=== PATIENT | male | born 1945 | race African-American/Black ===

== ENCOUNTER 2017-04-09 20:29 | Inpatient (IN) | payer OTHER ==
[2017-04-09 20:34] VITALS: BMI 21.9
--- NOTE | 2017-04-09 21:55 | PDOC ---
Attending Attestation - Resident Resident Name: FrancieKailash - ED Attending Attestation I have performed the following: I have examined & evaluated the patient, The case was reviewed & discussed with the resident, I agree w/resident's findings & plan, Exceptions are as noted - HPI HPI: 04/10/17 00:35 The patient is a 71 year old male with significant past medical history of HIV, hypertension, and diabetes who presents to the ED for 2 weeks of generalized weakness and poor balance. Patient states he is compliant with his treatments for all of his past medical h/o, but has not been seen by a doctor in a year. Patient is from [place] and his son, who lives in [place], decided to bring him here to make sure patient gets proper care. Patient reports decreased appetite for the past 2 months. Denies abdominal pain, nausea, vomiting, or diarrhea. He also has complaints of weight loss, night sweats, and difficulty sleeping. The patient denies fever, chills, cough, SOB, chest pain, and palpitations. - Physicial Exam PE: 04/10/17 00:35 GENERAL: Well developed, well nourished. Awake and alert. No acute distress. HEENT: Normocephalic, atraumatic. PERRLA, EOMI. No conjunctival pallor. Sclera are non- icteric. Moist mucous membranes. Oropharynx is clear. NECK: Supple. Full ROM. No JVD. Carotid pulses 2+ and symmetric, without bruits. No thyromegaly. No lymphadenopathy. CARDIOVASCULAR: Regular rate and rhythm. No murmurs, rubs, or gallops. Distal pulses are 2+ and symmetric. PULMONARY: No evidence of respiratory distress. Lungs clear to auscultation bilaterally. No wheezing, rales or rhonchi. ABDOMINAL: Soft. Non-tender. Non-distended. No rebound or guarding. No organomegaly. Normoactive bowel sounds. MUSCULOSKELETAL Normal range of motion at all joints. No bony deformities or tenderness. No CVA tenderness. EXTREMITIES: No cyanosis. No clubbing. No edema. No calf tenderness. SKIN: Warm and dry. Normal capillary refill. No rashes. No jaundice. NEUROLOGICAL: Alert, awake, appropriate. Cranial nerves 2-12 intact. Moving all extremities equally. No gross neurological deficits. Gait ataxia. <Miesha Belcher - Last Filed: 04/10/17 00:35> - Resident Resident Name: Kailash Marmolejo - ED Attending Attestation I have performed the following: I have examined & evaluated the patient, The case was reviewed & discussed with the resident, I agree w/resident's findings & plan, Exceptions are as noted - Medical Decision Making 04/10/17 02:27 ADMIT/ IV FLUIDS/ CALCIUM/D50/Insulin/Bicarb/ TELE Renal and ID Consults <Castillo Whelan - Last Filed: 04/10/17 02:30> Discharge Disposition - Discharge Dispostion Admit: Yes <Castillo Whelan - Last Filed: 04/10/17 02:30> - Diagnosis Renal insufficiency, Human immunodeficiency virus (HIV) disease, Weakness Dementia Qualifiers: Dementia type: unspecified type Dementia behavioral disturbance: without behavioral disturbance Qualified Code(s): F03.90 - Unspecified dementia without behavioral disturbance - Discharge Dispostion Condition at time of disposition: Improved ED Treatment Course - LABORATORY CBC & Chemistry Diagram: 04/09/17 23:35 04/09/17 23:35 - ADDITIONAL ORDERS Additional order review: 04/09/17 23:35 RBC 3.46 L MCV 87.4 MCHC 32.9 RDW 15.8 MPV 8.1 Neutrophils % 52.3 Lymphocytes % 34.3 Monocytes % 10.3 H Eosinophils % 2.7 Basophils % 0.4 - RADIOLOGY Radiograph Interpretation: 04/10/17 00:28 EXAM: CT brain without contrast Reviewed by Imaging distribution estimator: FINDINGS: Involutional changes. No hemorrhage. No mass. No visible acute infarct. Osseous structures are intact. <Miesha Belcher - Last Filed: 04/10/17 00:35> - LABORATORY CBC & Chemistry Diagram: 04/09/17 23:35 04/09/17 23:35 <Castillo Whelan - Last Filed: 04/10/17 02:30> Medical Decision Making - Medical Decision Making 04/10/17 00:36 Documentation prepared by Miesha Belcher, acting as medical investigator for Castillo Whelan MD/. <Miesha Belcher - Last Filed: 04/10/17 00:35>
--- NOTE | 2017-04-09 23:31 | PDOC ---
History of Present Illness - General Chief Complaint: Weakness Stated Complaint: Weakness Time Seen by Provider: 04/09/17 21:54 History Source: Patient, Family - History of Present Illness Initial Comments: 04/09/17 23:20 69M w/ pmh of HCL, HTN, HIV, Diabetes, all of those for which he takes treatment but hasn't seen doctor in a year, presents with 2 weeks of b/l gneral weakness and poor balance as well as decreased appetite for the past 2 months. Patient also complains of weight loss, night sweats and difficulty sleeping. His sons visited him in [place] and decided to bring him to [place] to make erlin he gets proper care, especially with the pt showing early signs of Alzheimer 's. No hemoptysis, rashes,or vomiting, diarrhea or recent infections 04/09/17 23:40 Past History - Past Medical History Allergies/Adverse Reactions: Allergies Allergy/AdvReac Type Severity Reaction Status Date / Time No Known Allergies Allergy Verified 04/09/17 20:34 Home Medications: Ambulatory Orders Abacavir Sulfate [Abacavir] 300 mg PO DAILY 04/09/17 Amlodipine Besylate [Norvasc -] 50 mg PO DAILY 04/09/17 Aspirin [ASA -] 81 mg PO DAILY 04/09/17 Atazanavir Sulfate/Cobicistat [Evotaz 300 mg-150 mg Tablet] 1 tab PO DAILY 04/09 Atorvastatin Ca [Lipitor] 40 mg PO HS 04/09/17 Carvedilol 12.5 mg PO DAILY 04/09/17 Fosinopril Sodium 40 mg PO DAILY 04/09/17 Lamivudine 150 mg PO DAILY 04/09/17 Diabetes: Yes HTN: Yes HIV: Yes - Psycho/Social/Smoking Cessation Hx Suicidal Ideation: No Smoking History: Never smoked Review of Systems - Review of Systems Constitutional: Yes: See HPI, Night Sweats, Unintentional Wgt. Loss. No: Diaphoresis, Fever HEENTM: No: Eye Pain, Recent change in vision, Ear Pain, Mouth Pain, Difficulty Swallowing Respiratory: No: Cough, Shortness of Breath, Stridor, Wheezing, Productive cough , Hemoptysis Cardiac (ROS): No: Chest Pain, Edema, Irregular Heart Rate, Palpitations, Syncope ABD/GI: No: Abdominal Distended, Abd. Pain w/ defecation, Constipated, Diarrhea , Vomiting, Abdominal cramping Integumentary: No: Bruising, Change in Color, Change in Hair/Nails, Dryness Neurological: Yes: See HPI, Weakness. No: Headache Psychiatric: No: Anxiety, Depression *Physical Exam - Vital Signs Last Vital Signs Temp Pulse Resp BP Pulse Ox 97.9 F 57 L 18 98/56 100 04/09/17 20:31 04/09/17 20:31 04/09/17 20:31 04/09/17 20:31 04/09/17 20:31 - Physical Exam General Appearance: Yes: Nourished, Appropriately Dressed. No: Apparent Distress HEENT: positive: Normal ENT Inspection. negative: Photophobia Neck: positive: Supple. negative: Tender, Decreased range of motion Respiratory/Chest: positive: Lungs Clear, Normal Breath Sounds. negative: Respiratory Distress Cardiovascular: positive: Regular Rhythm, Regular Rate, S1, S2 Vascular Pulses: Carotid (R): 2+, Carotid (L): 2+, Dorsalis-Pedis (R): 2+, Doralis-Pedis (L): 2+ Gastrointestinal/Abdominal: positive: Normal Bowel Sounds, Flat, Soft. negative : Tender, Organomegaly, Increased Bowel Sounds, Tenderness, Hernia, Mass, Hepatomegaly, Spleenomegaly Extremity: positive: Normal Capillary Refill, Normal Inspection, Normal Range of Motion Integumentary: positive: Normal Color, Dry, Warm. negative: Clammy, Diaphoresis , Petechiae, Rash, Bruising Neurologic: positive: dialysis nurse II-XII NML intact, Fully Oriented, Alert, Normal Mood/ Affect, Motor Strength 5/5. negative: Numbness, Confused, Disoriented (+ Rhomberg and occasional left leaning side-stepping gait.) Medical Decision Making - Medical Decision Making 04/09/17 23:47 71M with pmh of HTN, HCL, HIV and DM2 presents with decreased appetite, weakness and decreased balance, weight loss and night sweats. . Ordered CBC, CMP, HIV panel, EKG, bChest Xray and head ct to assess potential level of compliance since he hasnt seen a doctor in a year. Chest Xray is clear, EKG bradycardia from 1st degree block. 04/09/17 23:53
[2017-04-10 00:13] LABS: BASOPHIL 0.4 % (0-2.0); EOSINOPHIL 2.7 % (0-4.5); MCH 28.7 pg (25.7-33.7); MCHC 32.9 g/dl (32.0-35.9); MEAN CELL VOLUME 87.4 fl (80-96); MEAN PLT VOLUME 8.1 fl (7.5-11.1); NEUTROPHILS 52.3 % (42.8-82.8); PLATELET COUNT 208 K/MM3 (134-434); RDW 15.8 % (11.9-15.9); WHITE BLOOD COUNT 3.5 K/mm3 (4.0-10.0)
[2017-04-10 00:29] LABS: INR 1.1 (0.82-1.09); PROTHROMBIN TIME (PATIENT) 12.1 SEC (9.98-11.88)
[2017-04-10 00:45] LABS: ALBUMIN 3.2 g/dl (3.4-5.0); ANION GAP 11 (8-16); CO2 15 mmol/L (21-32); GLUCOSE,RANDOM 102 mg/dL (74-106); SGOT/AST 18 U/L (15-37); SGPT/ALT 13 U/L (12-78)
[2017-04-10 00:49] LABS: ALK PHOS 137 U/L (45-117); BILIRUBIN,TOTAL 4.3 mg/dL (0.2-1.0); TOT PROT 6.9 g/dl (6.4-8.2); TROPONIN I < 0.02 ng/ml (0.00-0.05)
[2017-04-10 01:15] LABS: HIV 1 AGp24 NEGATIVE
[2017-04-10] MEDS ORDERED: SODIUM CHLORIDE 1,000 ML IV STA (01:55)
[2017-04-10] MEDS ORDERED: CALCIUM GLUCONATE 10% - 1,000 MG/10 ML VIAL IVPB ONE (01:56)
[2017-04-10] MEDS ORDERED: INSULIN REGULAR HUMAN 100 UNITS/ML *VIAL IVPUSH ONE (01:56)
[2017-04-10] MEDS ORDERED: SODIUM BICARBONATE 8.4% 50 MEQ/50 ML DISP.SYRIN IVPUSH ONE (01:56)
[2017-04-10] MEDS ORDERED: DEXTROSE 50%-WATER - 25 GM/50 ML VIAL IVPUSH ONE (01:56)
[2017-04-10] MEDS ORDERED: DEXTROSE 50%-WATER 50 ML DISP.SYRIN ONE (02:08)
[2017-04-10] MEDS ORDERED: SODIUM BICARBONATE 8.4% 50 MEQ/50 ML VIAL ONE (02:08)
[2017-04-10] MEDS ORDERED: CALCIUM GLUCONATE 10% - 1,000 MG/10 ML VIAL ONE (02:08)
[2017-04-10 02:43] LABS: HIV 1 & 2 AB PRELIMINARY POSITIVE
[2017-04-10 03:04] LABS: CALCIUM 9.3 mg/dL (8.5-10.1); PHOSPHOROUS 3.1 mg/dL (2.5-4.9)
[2017-04-10 04:07] LABS: ANION GAP 10 (8-16); CALCIUM 9.3 mg/dL (8.5-10.1); CO2 16 mmol/L (21-32); CREATININE 2.9 mg/dL (0.7-1.3); GLUCOSE,RANDOM 115 mg/dL (74-106)
--- NOTE | 2017-04-10 04:50 | HP ---
CHIEF COMPLAINT: Generalized Weakness, Unsteady Gait PCP: Not on staff HISTORY OF PRESENT ILLNESS: This is a 71 y/o male with a past medical history of Hypertension, HIV (HAART Compliant), DM, Dementia. Who presents to the ED with generalized weakness, unsteady gait x 2 weeks. Patient also reports having a decreased appetite for months. He states" the food tastes like garbage and I spit it out". The patient is originally from [place] and is living with his son, who brought him in for evaluation. Patient reports taking his medications which he gets in mail order, but has not seen a doctor in close to a year. Patient denies fever, chills, cough, SOB, dizziness, CP, AP, N/V/D, constipation, dysuria. He denies any dysphagia or dental pain ER course was notable for: (1) K 5.2~ 4.5 after given calcium gluconate, D50, Insulin (2)CT head report- small focal right frontal white matter infarct, probably old. Tiny old left caudate infarct (3) TYRESE- Bun 44, Cr 3.0 Recent Travel: None PAST MEDICAL HISTORY: HTN HIV DM Dementia PAST SURGICAL HISTORY: L- Shoulder Repair Social History: Smoking: Never Alcohol: Denies Drugs: Denies Lives with son Family History: Father: Pancreatic Ca Allergies No Known Allergies Allergy (Verified 04/09/17 20:34) HOME MEDICATIONS: Home Medications Medication Instructions Recorded Abacavir Sulfate [Abacavir] 300 mg PO DAILY 04/09/17 Amlodipine Besylate [Norvasc -] 50 mg PO DAILY 04/09/17 Aspirin [ASA -] 81 mg PO DAILY 04/09/17 Atazanavir Sulfate/Cobicistat 1 tab PO DAILY 04/09/17 [Evotaz 300 mg-150 mg Tablet] Atorvastatin Ca [Lipitor] 40 mg PO HS 04/09/17 Carvedilol 12.5 mg PO DAILY 04/09/17 Fosinopril Sodium 40 mg PO DAILY 04/09/17 Lamivudine 150 mg PO DAILY 04/09/17 REVIEW OF SYSTEMS CONSTITUTIONAL: generalized weakness, malaise, loss of appetite Absent: fever, chills, diaphoresis, weight change HEENT: Absent: rhinorrhea, nasal congestion, throat pain, throat swelling, difficulty swallowing, mouth swelling, ear pain, eye pain, visual changes CARDIOVASCULAR: Absent: chest pain, syncope, palpitations, irregular heart rate, lightheadedness , peripheral edema RESPIRATORY: Absent: cough, shortness of breath, dyspnea with exertion, orthopnea, wheezing, stridor, hemoptysis GASTROINTESTINAL: Absent: abdominal pain, abdominal distension, nausea, vomiting, diarrhea, constipation, melena, hematochezia GENITOURINARY: Absent: dysuria, frequency, urgency, hesitancy, hematuria, flank pain, genital pain MUSCULOSKELETAL: Absent: myalgia, arthralgia, joint swelling, back pain, neck pain SKIN: Absent: rash, itching, pallor HEMATOLOGIC/IMMUNOLOGIC: Absent: easy bleeding, easy bruising, lymphadenopathy, frequent infections ENDOCRINE: Absent: unexplained weight gain, unexplained weight loss, heat intolerance, cold intolerance NEUROLOGIC: unsteady gait Absent: headache, focal weakness or paresthesias, dizziness, seizure, mental status changes, bladder or bowel incontinence PSYCHIATRIC: Absent: anxiety, depression, suicidal or homicidal ideation, hallucinations. PHYSICAL EXAMINATION Vital Signs - 24 hr 04/10/17 04/10/17 03:35 04:10 Temperature 97.6 F Pulse Rate 54 L Pulse Rate [ 59 L Left] Respiratory 18 18 Rate Blood Pressure 99/60 Blood Pressure 108/62 [Right Arm] O2 Sat by Pulse 100 Oximetry (%) GENERAL: Thin, awake, alert, and fully oriented, in no acute distress. HEAD: Normal with no signs of trauma. EYES: Pupils equal, round and reactive to light, extraocular movements intact, sclera anicteric, conjunctiva clear. No lid lag. EARS, NOSE, THROAT: Ears normal, nares patent, oropharynx clear without exudates. Dry mucous membranes. NECK: Normal range of motion, supple without lymphadenopathy, JVD, or masses. LUNGS: Breath sounds equal, clear to auscultation bilaterally. No wheezes, and no crackles. No accessory muscle use. HEART: Regular rate and rhythm, normal S1 and S2 without murmur, rub or gallop. ABDOMEN: Soft, nontender, not distended, normoactive bowel sounds, no guarding, no rebound, no masses. No hepatomegaly or splenomegaly. MUSCULOSKELETAL: Normal range of motion at all joints. No bony deformities or tenderness. No CVA tenderness. UPPER EXTREMITIES: 2+ pulses, warm, well-perfused. No cyanosis. No clubbing. No peripheral edema. LOWER EXTREMITIES: 2+ pulses, warm, well-perfused. No calf tenderness. No peripheral edema. NEUROLOGICAL: Cranial nerves II-XII intact. Normal speech. Gait not observed. PSYCHIATRIC: Cooperative. Good eye contact. Appropriate mood and affect. SKIN: Warm, dry, no rashes or lesions noted, normal capillary refill. poor turgo r Laboratory Results - last 24 hr 04/09/17 04/09/17 04/09/17 23:35 23:35 23:35 WBC 3.5 L RBC 3.46 L Hgb 9.9 L Hct 30.2 L MCV 87.4 MCH 28.7 MCHC 32.9 RDW 15.8 Plt Count 208 MPV 8.1 Neutrophils % 52.3 Lymphocytes % 34.3 Monocytes % 10.3 H Eosinophils % 2.7 Basophils % 0.4 INR 1.10 Sodium Potassium Chloride Carbon Dioxide Anion Gap BUN Creatinine Creat Clearance w eGFR Random Glucose Calcium Phosphorus Magnesium Total Bilirubin AST ALT Alkaline Phosphatase Creatine Kinase Creatine Kinase Index CK-MB (CK-2) CK-MB (CK-2) Rel Index Troponin I Total Protein Albumin HIV 1&2 Antibody Screen Preliminary positive HIV P24 Antigen Negative 04/09/17 04/09/17 04/10/17 23:35 23:35 02:31 WBC RBC Hgb Hct MCV MCH MCHC RDW Plt Count MPV Neutrophils % Lymphocytes % Monocytes % Eosinophils % Basophils % INR Sodium 136 Potassium 5.2 H Chloride 110 H Carbon Dioxide 15 L Anion Gap 11 BUN 44 H Creatinine 3.0 H Creat Clearance w eGFR 20.79 Random Glucose 102 Calcium 9.0 9.3 Phosphorus 3.1 Magnesium 2.0 Total Bilirubin 4.3 H AST 18 ALT 13 Alkaline Phosphatase 137 H Creatine Kinase 260 Creatine Kinase Index 1.4 CK-MB (CK-2) 3.577 CK-MB (CK-2) Rel Index Cancelled Troponin I < 0.02 Total Protein 6.9 Albumin 3.2 L HIV 1&2 Antibody Screen HIV P24 Antigen 04/10/17 03:21 WBC RBC Hgb Hct MCV MCH MCHC RDW Plt Count MPV Neutrophils % Lymphocytes % Monocytes % Eosinophils % Basophils % INR Sodium 138 Potassium 4.5 Chloride 112 H Carbon Dioxide 16 L Anion Gap 10 BUN 44 H Creatinine 2.9 H Creat Clearance w eGFR Random Glucose 115 H Calcium 9.3 Phosphorus Magnesium Total Bilirubin AST ALT Alkaline Phosphatase Creatine Kinase Creatine Kinase Index CK-MB (CK-2) CK-MB (CK-2) Rel Index Troponin I Total Protein Albumin HIV 1&2 Antibody Screen HIV P24 Antigen ASSESSMENT/PLAN: This is a 71 y/o male with a PMHx of: HTN, DM, HIV (HAART Compliant), Dementia. Who presents to the ED with generalized weakness and unsteady gait. Admitted for Hyperkalemia, TYRESE, generalized weakness for further evaluation of their emergent condition. Plan: 1. Hyperkalemia - Likely secondary to TYRESE - Tele monitoring - K 5.2~4.5 post Calcium Gluconate, D50, Insulin - EKG reviewed no prior study to compare - Appreciate Nephrology Consult - Trop neg x1 - Serial Enzymes x2 - Monitor BMP 2. TYRESE - Baseline Cr unknown - NS bolus given in ED - Continue IVF - Repeat BMP in am - Appreciate Nephrology Consult - Consider renal ultrasound 3. Generalized Weakness - Likely secondary to electrolyte imbalance vs dehydration - Tele monitoring - Replete lytes - PT for conditioning 4. Diabetes Mellitus - BGMs - ISS - HgbA1C 5. HIV - Continue home meds - CD4/CD8- pending - HIV 1&2- positive - Appreciate ID Consult 6. Dementia - no current meds - Continue to monitor 7. FEN - NS@100ml/hr -Replete lytes prn - Low Na Diet 8. DVT Prophylaxis - SCDs - Heparin SQ Code Status: Full Code Dispo: Requires Inpatient Care Problem List - Problem (1) Hyperkalemia Code(s): E87.5 - HYPERKALEMIA (2) Renal insufficiency Code(s): N28.9 - DISORDER OF KIDNEY AND URETER, UNSPECIFIED (3) Generalized weakness Code(s): R53.1 - WEAKNESS (4) Dementia Code(s): F03.90 - UNSPECIFIED DEMENTIA WITHOUT BEHAVIORAL DISTURBANCE Qualifiers: Dementia type: unspecified type Dementia behavioral disturbance: without behavioral disturbance Qualified Code(s): F03.90 - Unspecified dementia without behavioral disturbance (5) HIV disease Code(s): B20 - HUMAN IMMUNODEFICIENCY VIRUS [HIV] DISEASE (6) DVT prophylaxis Code(s): [id number] - Visit type - Emergency Visit Emergency Visit: Yes ED Registration Date: 04/10/17 Care time: The patient presented to the Emergency Department on the above date and was hospitalized for further evaluation of their emergent condition. - New Patient This patient is new to me today: Yes Date on this admission: 04/10/17 - Critical Care Critical Care patient: No
[2017-04-10 08:14] LABS: ANION GAP 8 (8-16); CALCIUM 9.1 mg/dL (8.5-10.1); CO2 15 mmol/L (21-32); GLUCOSE,RANDOM 92 mg/dL (74-106)
[2017-04-10 08:21] LABS: CHOLESTEROL 87 mg/dL (50-200); CREATININE 2.6 mg/dL (0.7-1.3); LDL CHOLESTEROL (ONLY SJRH) 43 mg/dL (5-100); TROPONIN I < 0.02 ng/ml (0.00-0.05)
[2017-04-10] MEDS: ASPIRIN 81 MG CHEWABLE TABLETS PO SCH (09:59)
[2017-04-10] MEDS ORDERED: CARVEDILOL 12.5 MG TABLET (FP) PO SCH (10:00)
[2017-04-10] MEDS ORDERED: ABACAVIR SULFATE 300 MG TABLET PO SCH (10:00)
[2017-04-10] MEDS ORDERED: amLODIPine BESYLATE 10 MG TABLET (FP) PO SCH ×2 (10:00)
[2017-04-10] MEDS: lamiVUDine 150 MG TABLET PO SCH (10:00)
[2017-04-10] MEDS ORDERED: LISINOPRIL 20 MG TABLET (FP) PO SCH (10:00)
--- NOTE | 2017-04-10 12:29 | CONSULT ---
Consult Consult Specialty:: Infectious disease Reason for Consultation:: HIV patient diagnosed since 1998 on lamivudin and abacavir with increasing weakness, loss of appetite, unstable gait and dementia - History of Present Illness Chief Complaint: increasing weakness for 1 month,fainting spells for 1 month, dementia for 2 months, loss of appetite for 2.5 months, unstable gait for 6 months History of Present Illness: A 70 year old man with background HIV (on HAART) and DM (as needed insulin) for 18 years who deferred giving history to his 38year old son (for recent memory loss), presented yesterday at the emergency room due to excessive weakness, loss of appetite, unstable gait, fainting spells and dementia. He started having recurrent episodes of lapsed memory about 6 months ago, such as going to his doctor and being unable to return, worse over past 2 months. He has been with his son for the past one week in [place] after being picked from [place] with the above history. Patient has good care home memory, still recognizes his family and is oriented to time, place and person. He is able to drive himself. There was no associated fever, no seizures. For the past 1 month has had up to 5 episodes of fainting spells. The spells happen when he is sitting on the couch , not exerting himself and he usually alerts people around, asking them to catch him. There is associated spinning of the room during these episodes, but no jerking movements and no aura. There is no hearing loss or tinnitus and no pins and needles sensation or inability to move any limb. There is no dysarthria , and no history of CVA. He is on HTN medication. For the past 6 months he has had recurrent staggering while walking. About 2.5 months ago, he developed loss of appetite, where he feels the food is tasteless and has to spit it out. There is no dysphagia, no oral lesions, no history of hepatic disease or previous surgery. There is associated weight loss, no night sweats, no cough or abnormal swellings or growths. He does not use dentures, had a cap put over his left incisor over 30 years ago. Since admission, the has had intravenous fluids and he has continued on his home meds. His appetite is still poor, he was however able to walk around without instability. He says he has been compliant on his HIV medication. 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 No: CVA, Peripheral Neuropathy Cardio/Vascular: Yes: HTN (on amlodipine , carvedilol,, forsinopril), Hyperlipdemia (on atorvastatin). No: AFIB, Aneurysm Pulmonary: No: Asthma, COPD, O2 Dependent Gastrointestinal: No: Cancer, Constipation, GERD, Hiatal Hernia Renal/: No: Renal Failure, Renal Inusuff Infectious Disease: Yes: HIV (DIagnosed since 1998). 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 Home Medications - Allergies Allergies/Adverse Reactions: Allergies Allergy/AdvReac Type Severity Reaction Status Date / Time No Known Allergies Allergy Verified 04/09/17 20:34 - Home Medications Home Medications: Ambulatory Orders Abacavir Sulfate [Abacavir] 300 mg PO DAILY 04/09/17 Amlodipine Besylate [Norvasc -] 50 mg PO DAILY 04/09/17 Aspirin [ASA -] 81 mg PO DAILY 04/09/17 Atazanavir Sulfate/Cobicistat [Evotaz 300 mg-150 mg Tablet] 1 tab PO DAILY 04/09 Atorvastatin Ca [Lipitor] 40 mg PO HS 04/09/17 Carvedilol 12.5 mg PO DAILY 04/09/17 Fosinopril Sodium 40 mg PO DAILY 04/09/17 Lamivudine 150 mg PO DAILY 04/09/17 Review of Systems - Review of Systems Constitutional: reports: Loss of Appetite, Unintentional Wgt. Loss, Weakness. denies: Chills, Diaphoresis Eyes: denies: Blurred Vision HENT: denies: Difficult Swallowing, Ear Discharge, Ear Pain, Hearing Loss, Throat Pain, Toothache, Ringing in Ears Neck: denies: Stiffness, Swollen Glands, Tenderness Cardiovascular: denies: Chest Pain, Edema, Shortness of Breath Respiratory: denies: Cough, SOB, SOB on Exertion, Wheezing Gastrointestinal: denies: Abdominal Pain, Dysphagia Genitourinary: reports: Burning. denies: Discharge, Dysuria, Incontinence Integumentary: denies: Blister, Bruising, Pruritis Neurological: reports: Unsteady Gait (Had unsteady gait at presentation, said to have been titlting to one side while walking and requiring assistance). denies: Confusion, Numbness, Parasthesia, Pre-Existing Deficit, Tremors Endocrine: reports: Intolerance to Cold, Unexplained Weight Loss. denies: Excessive Sweating Physical Exam Vital Signs: Vital Signs Temperature 98.4 F 04/10/17 08:30 Pulse Rate 65 04/10/17 08:30 Respiratory Rate 18 04/10/17 08:30 Blood Pressure 119/70 04/10/17 08:30 O2 Sat by Pulse Oximetry (%) 99 04/10/17 09:00 Constitutional: Yes: Pallor, Thin Eyes: Yes: EOM Intact, Sclera Icterus HENT: Yes: Atraumatic. No: Drooling, Epistaxis, Hoarseness, Nasal Congestion, Pharyngeal Erythema, Rhinnorhea, Thrush, Tonsillar Exudate Neck: Yes: Supple, Trachea Midline. No: Rigid, Tenderness Cardiovascular: Yes: Regular Rate and Rhythm, S1, S2 Respiratory: No: Accessory Muscle Use, Cough, On Nasal O2, Rales, Rhonchi, SOB, Tachypnea, Wheezes Gastrointestinal: Yes: Normal Bowel Sounds, Soft. No: Hernia, Palpable Mass, Tenderness, Epigastrium, Vomiting ...Rectal Exam: Yes: Deferred Renal/: No: Anuria, CVA Tenderness - Left, CVA Tenderness - Right, Rodas Present, Incontinence Musculoskeletal: No: Joint Stiffness, Joint Swelling, Muscle Pain Extremities: No: Amputation, Cold, Cyanosis, Deformity Edema: No Neurological: Yes: Alert, Oriented. No: Dysarthria, Facial Droop, Numbness, Paresthesia, Unsteady Gait Psychiatric: Yes: Alert, Oriented Labs: CBC, BMP 04/10/17 05:35 Problem List - Problems (1) Generalized weakness Assessment/Plan: Known HIV patient on HAART with loss of appetite, absent hepatic or respiratory symptoms unknown CD4 count and viral load dehydrated on presentation, abnormal BUN, Creatinine elevated Alk Phosphate and bilirubin (on atazanivir) Code(s): R53.1 - WEAKNESS (2) Syncope Assessment/Plan: Patient has bradycardia, 1st degree heart block and history of syncope Should have cardiology consult for echo, holter and further work up Plan: Lyme titre Code(s): R55 - SYNCOPE AND COLLAPSE (3) HIV disease Code(s): B20 - HUMAN IMMUNODEFICIENCY VIRUS [HIV] DISEASE (4) Dementia Assessment/Plan: CT shows age related involution Unknown CD4 count R/O Cryptococcal meningitis, toxoplasmosis, neurosyphillis Plan RPR Code(s): F03.90 - UNSPECIFIED DEMENTIA WITHOUT BEHAVIORAL DISTURBANCE Qualifiers: Dementia type: unspecified type Dementia behavioral disturbance: without behavioral disturbance Qualified Code(s): F03.90 - Unspecified dementia without behavioral disturbance Assessment/Plan Continue HAART Awaiting CD4 count Lyme titre RPR for syphillis Consider Cardio consult for bradycardia, 1st degree heartblock and syncope Visit type - Emergency Visit Emergency Visit: No - New Patient This patient is new to me today: Yes Date on this admission: 04/10/17 - Critical Care Critical Care patient: No
[2017-04-10] MEDS: COBICISTAT 150 MG PO SCH (12:45)
[2017-04-10] MEDS: ATAZANAVIR SULFATE PO SCH (12:45)
--- NOTE | 2017-04-10 13:00 | PN ---
Physical Exam: SUBJECTIVE: Patient seen and examined. Feels that his gait issues have improved. Is more energetic, but still without appetite. OBJECTIVE: Cr improved slightly (2.6<--3.0) with hydration. Vital Signs Period Temp Pulse Resp BP Sys/[place]atham Pulse Ox Last 24 Hr 97.6 F-98.4 F 54-65 18-18 99-119/60-70 99-100 GENERAL: The patient is awake, alert, and fully oriented, in no acute distress. HEAD: Normal with no signs of trauma. EYES: Mild scleral icterus. PERRL, extraocular movements intact, conjunctiva clear. No ptosis. ENT: Ears normal, nares patent, oropharynx clear without exudates, moist mucous membranes. NECK: Trachea midline, full range of motion, supple. LUNGS: Breath sounds equal, clear to auscultation bilaterally, no wheezes, no crackles, no accessory muscle use. HEART: Regular rate and rhythm, S1, S2 without murmur, rub or gallop. ABDOMEN: Soft, nontender, nondistended, normoactive bowel sounds, no guarding, no rebound, no hepatosplenomegaly, no masses. EXTREMITIES: 2+ pulses, warm, well-perfused, no edema. NEUROLOGICAL: Cranial nerves II through XII grossly intact. Normal speech, gait steady. PSYCH: Normal mood, normal affect. SKIN: Warm, dry, normal turgor, no rashes or lesions noted Laboratory Results - last 24 hr 04/10/17 04/10/17 04/10/17 02:31 03:21 05:35 Sodium 138 Potassium 4.5 Chloride 112 H Carbon Dioxide 16 L Anion Gap 10 BUN 44 H Creatinine 2.9 H Random Glucose 115 H Calcium 9.3 9.3 Phosphorus 3.1 Magnesium 2.0 Creatine Kinase Cancelled Creatine Kinase Index CK-MB (CK-2) CK-MB (CK-2) Rel Index Troponin I Cancelled Triglycerides Cholesterol Total LDL Cholesterol HDL Cholesterol 04/10/17 04/10/17 04/10/17 05:35 05:35 05:35 Sodium 135 L Potassium 4.7 Chloride 112 H Carbon Dioxide 15 L Anion Gap 8 BUN 40 H Creatinine 2.6 H Random Glucose 92 Calcium 9.1 Phosphorus Magnesium Creatine Kinase 251 Creatine Kinase Index 1.3 CK-MB (CK-2) 3.2 CK-MB (CK-2) Rel Index Cancelled Troponin I < 0.02 Triglycerides Cancelled 151 Cholesterol Cancelled 87 Total LDL Cholesterol Cancelled 43 HDL Cholesterol Cancelled 35 L Active Medications Generic Name Dose Route Start Last Admin Trade Name Katherine PRN Reason Stop Dose Admin Abacavir Sulfate 300 mg 04/10/17 10:00 04/10/17 10:00 Ziagen - PO 300 mg DAILY RONAL Administration Amlodipine Besylate 5 mg 04/11/17 10:00 Norvasc - PO DAILY RONAL Aspirin 81 mg 04/10/17 10:00 04/10/17 09:59 Asa - PO 81 mg DAILY RONAL Administration Atorvastatin Calcium 40 mg 04/10/17 22:00 Lipitor - PO HS RONAL Carvedilol 12.5 mg 04/10/17 22:00 Coreg - PO BID RONAL Lamivudine 150 mg 04/10/17 10:00 04/10/17 10:00 Epivir - PO 150 mg DAILY RONAL Administration Lisinopril 40 mg 04/10/17 10:00 04/10/17 09:59 Prinivil PO 40 mg DAILY RONAL Administration Atazanavir Sulfate 1 tab 04/10/17 10:00 04/10/17 12:45 300 Mg/Cobicistat PO 1 tab 150mg (Evotaz) -Pt's DAILY RONAL Administration Own ASSESSMENT/PLAN: 71 year old male with a history of HTN, DM, HIV on HAART therapy, admitted from the ED with generalized weakness, fatigue, poor appetite , and unsteady gait. 1. Renal insufficiency -Baseline creatinine unknown, but patient and family are not aware of any renal disease history -Downtrending slightly with IV fluids -Hold Lisinopril -Mild hyperkalemia, treated and resolved -Need to obtain renal ultrasound and urine studies -Nephrology consultation requested 2. 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 Syncopal episodes -Suspect secondary to poor oral intake -Trops neg x 3 -No events on telemetry -Follow up Lyme (heart block) -Cardiology following 4. HIV -UPatient has not seen MD for >1yr - has been on HAART since 1998 and denies any history of OIs -Reports compliance with medications -CD4 is pending -Has moved from [place] and will need to be connected with the [facility] -ID following 5. DM -Was prescribed sliding scale insulin but does not use it -Currently normoglycemic with poor PO intake -Follow chemistry and start ISS if needed -Diabetic diet 6. Dementia (suspected), reported gait disturbance -CTH: No acute intracranial process -Neurology evaluation requested 7. HTN -BPs at goal -Continue Norvasc -Hold Lisinopril pending renal workup 8. HLD -Continue statin 9. FEN -NS@100ml/hr -Replete lytes prn -Diabetic/sodium-controlled diet 10. DVT Prophylaxis -[facility] Code Status: Full Code Dispo: Requires inpatient care. Can dc telemetry. Visit type - Emergency Visit Emergency Visit: Yes ED Registration Date: 04/10/17 Care time: The patient presented to the Emergency Department on the above date and was hospitalized for further evaluation of their emergent condition. - New Patient This patient is new to me today: Yes Date on this admission: 04/15/17 - Critical Care Critical Care patient: No - Discharge Referral Referred to [facility] No
[2017-04-10 13:21] LABS: TROPONIN I < 0.02 ng/ml (0.00-0.05)
--- NOTE | 2017-04-10 15:01 | CONSULT ---
Consultation: REQUESTING PROVIDER: CONSULT REQUEST: We have been asked to medically evaluate this patient for TYRESE. HISTORY OF PRESENT ILLNESS: 71 y/o male with a past medical history of HTN, HIV, DM, Dementia who presents to the ED with generalized weakness, unsteady gait x 2 weeks. Called to evaluated patient for TYRESE. He denies any history of CKD or kidney problems in past. Currently taking 81mg ASA daily and Lisinopril for HTN. He endorses strict compliance with HAART medication, but has not had CD4 or viral load checked in over a year. Denies any dysuria, frequency , urgency or hematuria. He does make urine. Denies CP,MENDOZA, palpitations, abd. pain, N/V. No sick contacts , recent illness, fever or chills. PAST MEDICAL HISTORY: HTN,HIV,DM,Dementia PAST SURGICAL HISTORY: L- Shoulder Repair Social History: Smoking: Never Alcohol: Denies Drugs: Denies Lives with son Family History: Father: Pancreatic Ca Allergies No Known Allergies Allergy (Verified 04/09/17 20:34) REVIEW OF SYSTEMS: CONSTITUTIONAL: Absent: fever, chills, diaphoresis, generalized weakness, malaise, loss of appetite, weight change HEENT: Absent: rhinorrhea, nasal congestion, throat pain, throat swelling, difficulty swallowing, mouth swelling, ear pain, eye pain, visual changes CARDIOVASCULAR: Absent: chest pain, syncope, palpitations, irregular heart rate, lightheadedness , peripheral edema RESPIRATORY: Absent: cough, shortness of breath, dyspnea with exertion, orthopnea, wheezing, stridor, hemoptysis GASTROINTESTINAL: Absent: abdominal pain, abdominal distension, nausea, vomiting, diarrhea, constipation, melena, hematochezia GENITOURINARY: Absent: dysuria, frequency, urgency, hesitancy, hematuria, flank pain, genital pain MUSCULOSKELETAL: Absent: myalgia, arthralgia, joint swelling, back pain, neck pain SKIN: Absent: rash, itching, pallor HEMATOLOGIC/IMMUNOLOGIC: Absent: easy bleeding, easy bruising, lymphadenopathy, frequent infections ENDOCRINE: Absent: unexplained weight gain, unexplained weight loss, heat intolerance, cold intolerance NEUROLOGIC: Absent: headache, focal weakness or paresthesias, dizziness, unsteady gait, seizure, mental status changes, bladder or bowel incontinence PSYCHIATRIC: Absent: anxiety, depression, suicidal or homicidal ideation, hallucinations. PHYSICAL EXAMINATION Vital Signs - 24 hr 04/10/17 04/10/17 04/10/17 03:35 04:10 05:00 Temperature 97.6 F 97.6 F Pulse Rate 54 L 54 L Pulse Rate [ 59 L Left] Respiratory 18 18 18 Rate Blood Pressure 99/60 99/60 Blood Pressure 108/62 [Right Arm] O2 Sat by Pulse 100 100 Oximetry (%) 04/10/17 04/10/17 08:30 09:00 Temperature 98.4 F Pulse Rate 65 Pulse Rate [ Left] Respiratory 18 Rate Blood Pressure 119/70 Blood Pressure [Right Arm] O2 Sat by Pulse 99 Oximetry (%) GENERAL: AAOx3, NAD HEAD:NC/AT EYES: Mild scleral icterus. PERRL, extraocular movements intact, conjunctiva clear. No ptosis. ENT: moist mucous membranes. NECK: supple, No JVD LUNGS:CTAB , no wheezing or rales. HEART: RRR, S1S2, No M/G/R ABDOMEN: soft, NT, ND, BS(+), no masses or organomegally. EXTREMITIES: 2+ pulses, warm, well-perfused, no edema. NEUROLOGICAL: Cranial nerves II through XII grossly intact. Normal speech, gait not observed. PSYCH: Normal mood, normal affect. SKIN: Warm, dry, normal turgor, no rashes or lesions noted Laboratory Results - last 24 hr 04/10/17 04/10/17 04/10/17 02:31 03:21 05:35 Sodium 138 Potassium 4.5 Chloride 112 H Carbon Dioxide 16 L Anion Gap 10 BUN 44 H Creatinine 2.9 H Random Glucose 115 H Calcium 9.3 9.3 Phosphorus 3.1 Magnesium 2.0 Creatine Kinase Cancelled Creatine Kinase Index CK-MB (CK-2) CK-MB (CK-2) Rel Index Troponin I Cancelled Triglycerides Cholesterol Total LDL Cholesterol HDL Cholesterol 04/10/17 04/10/17 04/10/17 05:35 05:35 05:35 Sodium 135 L Potassium 4.7 Chloride 112 H Carbon Dioxide 15 L Anion Gap 8 BUN 40 H Creatinine 2.6 H Random Glucose 92 Calcium 9.1 Phosphorus Magnesium Creatine Kinase 251 Creatine Kinase Index 1.3 CK-MB (CK-2) 3.2 CK-MB (CK-2) Rel Index Cancelled Troponin I < 0.02 Triglycerides Cancelled 151 Cholesterol Cancelled 87 Total LDL Cholesterol Cancelled 43 HDL Cholesterol Cancelled 35 L 04/10/17 04/10/17 12:25 12:25 Sodium Potassium Chloride Carbon Dioxide Anion Gap BUN Creatinine Random Glucose Calcium Phosphorus Magnesium Creatine Kinase 271 Creatine Kinase Index CK-MB (CK-2) CK-MB (CK-2) Rel Index 1.5 Troponin I < 0.02 Triglycerides Cholesterol Total LDL Cholesterol HDL Cholesterol Active Medications Generic Name Dose Route Start Last Admin Trade Name Freq PRN Reason Stop Dose Admin Abacavir Sulfate 300 mg 04/11/17 22:00 Ziagen - PO BID RONAL Amlodipine Besylate 5 mg 04/11/17 10:00 Norvasc - PO DAILY RONAL Aspirin 81 mg 04/10/17 10:00 04/10/17 09:59 Asa - PO 81 mg DAILY RONAL Administration Atorvastatin Calcium 40 mg 04/10/17 22:00 Lipitor - PO HS RONAL Carvedilol 12.5 mg 04/10/17 22:00 Coreg - PO BID RONAL Lamivudine 150 mg 04/10/17 10:00 04/10/17 10:00 Epivir - PO 150 mg DAILY RONAL Administration Megestrol Acetate 800 mg 04/10/17 13:15 Megace Oral Suspension - PO DAILY RONAL Atazanavir Sulfate 1 tab 04/10/17 10:00 04/10/17 12:45 300 Mg/Cobicistat PO 1 tab 150mg (Evotaz) -Pt's DAILY RONAL Administration Own ASSESSMENT/PLAN: 71 y/o male with a past medical history of HTN, HIV, DM, Dementia who presents to the ED with generalized weakness, unsteady gait x 2 weeks. Admitted for hyperkalemia and TYRESE. Dispo: We will continue to follow the patient. Thank you for this consultative opportunity. Problem List - Problems (1) TYRESE (acute kidney injury) Assessment/Plan: * Given his PMHx of HIV and HAART therapy consider FSGN vs. crystal formation. * Will obtain Urine lyte, cr, and protein. * HIV viral load and CD4 count pending. * Ordered Kidney and bladder US to r/o obstruction. * Calculate FeNA * Avoid nephrotoxins- lisinopril held * Encourage PO intake * repeat BMP in AM * Will continue to follow. (2) Hyperkalemia Assessment/Plan: * resolved with IVF, D50 and insulin * will repeat BMP in AM (3) HIV disease Assessment/Plan: * CD4 and Viral load pending. * Abacavir Sulfate (Ziagen -) 300 mg PO BID * Lamivudine (Epivir -) 150 mg PO DAILY * Atazanavir Sulfate 300 Mg/Cobicistat 150mg (Evotaz) -Pt's Own 1 tab PO DAILY (4) HTN (hypertension) Assessment/Plan: * Amlodipine Besylate (Norvasc -) 5 mg PO DAILY * Aspirin (Asa -) 81 mg PO DAILY * Atorvastatin Calcium (Lipitor -) 40 mg PO HS * Carvedilol (Coreg -) 12.5 mg PO BID RONAL (5) DVT prophylaxis Visit type - Emergency Visit Emergency Visit: Yes ED Registration Date: 04/10/17 Care time: The patient presented to the Emergency Department on the above date and was hospitalized for further evaluation of their emergent condition. - New Patient This patient is new to me today: Yes Date on this admission: 04/10/17 - Critical Care Critical Care patient: No
[2017-04-10 16:05] LABS: URINE APPEARANCE CLEAR; URINE BILIRUBIN NEGATIVE (NEGATIVE); URINE COLOR LTYELLOW; URINE GLUCOSE (UA) NEGATIVE (NEGATIVE); URINE KETONE NEGATIVE (NEGATIVE); URINE NITRITE NEGATIVE (NEGATIVE); URINE UROBILINOGEN NEGATIVE E.U./dl (0.2-1.0)
--- NOTE | 2017-04-10 16:11 | PN ---
Teaching Attending Note Name of Resident: Eli Solis ATTENDING PHYSICIAN STATEMENT I saw and evaluated the patient. I reviewed the resident's note and discussed the case with the resident. I agree with the resident's findings and plan as documented. 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
[2017-04-10 16:16] LABS: URINE BLOOD 1+ (NEGATIVE); URINE LEUK ESTERASE 1+ (NEGATIVE); URINE PROTEIN 1+ (NEGATIVE)
[2017-04-10 16:19] LABS: URINE RBC <1 /hpf (0-3); URINE WBC 5 /hpf (3-5)
[2017-04-10] MEDS: MEGESTROL ACETATE 400 MG/10 ML UNIT DOSE CUP PO SCH (16:19)
--- NOTE | 2017-04-10 16:37 | PN ---
Teaching Attending Note Name of Resident: Jason Seymour (Nephrology) ATTENDING PHYSICIAN STATEMENT I saw and evaluated the patient. I reviewed the resident's note and discussed the case with the resident. I agree with the resident's findings and plan as documented. Nephrology Consult Please see consult filled out by director medical writing. Pt is a 71 year old male with pmhx of HTN, HIV and DM who presents with generalized weakness and decreased PO intake. He recently moved from [place] to [place]. He denies history of CKD. He denies dysuria or hematuria. I was called to evaluate him for elevated creatinine. PMHx htn hib dm social denies ros decreased appetite family hx denies nkda Current Medications Generic Name Dose Route Start Last Admin Trade Name Freq PRN Reason Stop Dose Admin Abacavir Sulfate 300 mg 04/11/17 22:00 Ziagen - PO BID RONAL Amlodipine Besylate 5 mg 04/11/17 10:00 Norvasc - PO DAILY RONAL Aspirin 81 mg 04/10/17 10:00 04/10/17 09:59 Asa - PO 81 mg DAILY RONAL Administration Atorvastatin Calcium 40 mg 04/10/17 22:00 Lipitor - PO HS RONAL Carvedilol 12.5 mg 04/10/17 22:00 Coreg - PO BID RONAL Lamivudine 150 mg 04/10/17 10:00 04/10/17 10:00 Epivir - PO 150 mg DAILY RONAL Administration Megestrol Acetate 800 mg 04/10/17 13:15 04/10/17 16:19 Megace Oral Suspension - PO 800 mg DAILY RONAL Administration Atazanavir Sulfate 1 tab 04/10/17 10:00 04/10/17 12:45 300 Mg/Cobicistat PO 1 tab 150mg (Evotaz) -Pt's DAILY RONAL Administration Own Last Vital Signs Temp Pulse Resp BP Pulse Ox 97.2 F L 55 L 18 97/65 99 04/10/17 15:00 04/10/17 15:00 04/10/17 15:00 04/10/17 15:00 04/10/17 09:00 Laboratory Tests 04/09/17 04/09/17 04/09/17 23:35 23:35 23:35 Sodium Chloride Carbon Dioxide Anion Gap BUN Creatinine Random Glucose Urine Color Urine Appearance Urine pH Ur Specific [place]ance Urine Protein Urine Glucose (UA) Urine Ketones Urine Blood Urine Nitrite Urine Bilirubin Urine Urobilinogen Ur Leukocyte Esterase Absolute CD3 Count % CD3+ Lymphocytes Absolute CD4 [place] % CD4+ Lymphocyte CD4/CD8 Ratio % CD8+ Lymphocyte Absolute CD8 Count HIV-1 RNA (PCR) Pending HIV-1 RNA (PCR) log10 Pending HIV 1&2 Ag/Ab, 4th Gen Pending HIV Note Pending HIV 1&2 Antibody Screen Preliminary positive HIV P24 Antigen Negative 04/10/17 04/10/17 04/10/17 02:31 03:21 05:35 Sodium 138 135 L Chloride 112 H 112 H Carbon Dioxide 16 L 15 L Anion Gap 8 BUN 44 H 40 H Creatinine 2.9 H 2.6 H Random Glucose 92 Urine Color Urine Appearance Urine pH Ur Specific [place] Urine Protein Urine Glucose (UA) Urine Ketones Urine Blood Urine Nitrite Urine Bilirubin Urine Urobilinogen Ur Leukocyte Esterase Absolute CD3 Count Pending % CD3+ Lymphocytes Pending Absolute CD4 [place] Pending % CD4+ Lymphocyte Pending CD4/CD8 Ratio Pending % CD8+ Lymphocyte Pending Absolute CD8 Count Pending HIV-1 RNA (PCR) HIV-1 RNA (PCR) log10 HIV 1&2 Ag/Ab, 4th Gen HIV Note HIV 1&2 Antibody Screen HIV P24 Antigen 04/10/17 14:30 Sodium Chloride Carbon Dioxide Anion Gap BUN Creatinine Random Glucose Urine Color Ltyellow Urine Appearance Clear Urine pH 5.0 Ur Specific [place] Pending Urine Protein 1+ H Urine Glucose (UA) Negative Urine Ketones Negative Urine Blood 1+ H Urine Nitrite Negative Urine Bilirubin Negative Urine Urobilinogen Negative Ur Leukocyte Esterase 1+ H Absolute CD3 Count % CD3+ Lymphocytes Absolute CD4 [place] % CD4+ Lymphocyte CD4/CD8 Ratio % CD8+ Lymphocyte Absolute CD8 Count HIV-1 RNA (PCR) HIV-1 RNA (PCR) log10 HIV 1&2 Ag/Ab, 4th Gen HIV Note HIV 1&2 Antibody Screen HIV P24 Antigen cardio s1s2 reg pulm clear Gi soft ext neg edema neuro awake Impression 1. 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 HIV 3. DM 4. HTN 5. hx dementia 6. decreased PO intake 7. hyperlipidemia Plan - check ultrasound kidneys and bladder - start PO bicarb - will give fuids as bp is low - send urine prt to body press operator ratio - ID input appreciated, tests ordered to evaluate HIV status - pt will need an outpt renal workup and follow up as well - will follow Dr Barr
--- NOTE | 2017-04-10 16:43 | CON.NEURO ---
Consult - History of Present Illness History of Present Illness: CC difficulty walking , feeling weak, confusion, and yellow in eye HPI 71 year old male history of HTN, HIV ( HAART Therapy) , unknown cd4 and viral load, Dementia and Hyperlipidemia. He lives in [place] and his son called him and he was sounded confused. and they flew to [place] and brought him to hospital. There is no history of seizure. There is no headhace , dysphagia, diplopia or dysarthia. Initial ct scan is normal, serum bilirubin was 5s , and he is being seen by ID . He is not feeling dizzy Past Medical HIsitory -- HTN, HIV , DEMENTIA Medication reviewed in chart Left shoulder pin in place one year ago. 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 No: CVA, Peripheral Neuropathy Cardio/Vascular: Yes: HTN (on amlodipine , carvedilol,, forsinopril), Hyperlipdemia (on atorvastatin). No: AFIB, Aneurysm Pulmonary: No: Asthma, COPD, O2 Dependent Gastrointestinal: No: Cancer, Constipation, GERD, Hiatal Hernia Hepatobiliary: Yes: Other (denies any liver disease) Renal/: No: Renal Failure, Renal Inusuff Infectious Disease: Yes: HIV (DIagnosed since 1998). 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 Home Medications - Allergies Allergies/Adverse Reactions: Allergies Allergy/AdvReac Type Severity Reaction Status Date / Time No Known Allergies Allergy Verified 04/09/17 20:34 - Home Medications Home Medications: Ambulatory Orders Abacavir Sulfate [Abacavir] 300 mg PO DAILY 04/09/17 Amlodipine Besylate [Norvasc -] 50 mg PO DAILY 04/09/17 Aspirin [ASA -] 81 mg PO DAILY 04/09/17 Atazanavir Sulfate/Cobicistat [Evotaz 300 mg-150 mg Tablet] 1 tab PO DAILY 04/09 Atorvastatin Ca [Lipitor] 40 mg PO HS 04/09/17 Carvedilol 12.5 mg PO DAILY 04/09/17 Fosinopril Sodium 40 mg PO DAILY 04/09/17 Lamivudine 150 mg PO DAILY 04/09/17 Physical Exam-Neuro Vital Signs: Vital Signs Temperature 97.2 F L 04/10/17 15:00 Pulse Rate 55 L 04/10/17 15:00 Respiratory Rate 18 04/10/17 15:00 Blood Pressure 97/65 04/10/17 15:00 O2 Sat by Pulse Oximetry (%) 99 04/10/17 09:00 Labs: CBC, BMP 04/10/17 05:35 INR, PTT INR 1.10 (0.82-1.09) 04/09/17 23:35 - Neuro Exam Level Of Consciousness: Yes: Alert, Oriented to Person Eyes: Yes: JAVAD DTR's: 1+ Left Bicep, 1+ Right Bicep, 1+ Right Brachioradialis, 1+ Left Achilles Babinski: Absent Response to light touch: Normal Response to pain prick: Normal Coordination: Normal: Finger to Nose, Heel to Felipe, Precision Finger Tap, Pronator Drift Motor Strength: 5/5: Left Arm, Right Arm, Left Leg, Right Leg Gait: Normal NIH Stroke Scale - Total Score NIH Stroke Scale Score: 0 Imaging - Results Cat Scan: Image Reviewed Assessment/Plan CC difficulty walking , feeling weak, confusion, and yellow in eye HPI 71 year old male history of HTN, HIV ( HAART Therapy) , unknown cd4 and viral load, Dementia and Hyperlipidemia. He lives in [place] and his son called him and he was sounded confused. and they flew to [place] and brought him to hospital. There is no history of seizure. There is no headhace , dysphagia, diplopia or dysarthia. Initial ct scan is normal, serum bilirubin was 5s , and he is being seen by ID . He is not feeling dizzy Past Medical HIsitory -- HTN, HIV , DEMENTIA Medication reviewed in chart Left shoulder pin in place one year ago. Denies alcohol abuse, he has hiv since 1998 HOME MEDICATIONS: Home Medications Medication Instructions Recorded Abacavir Sulfate [Abacavir] 300 mg PO DAILY 04/09/17 Amlodipine Besylate [Norvasc -] 50 mg PO DAILY 04/09/17 Aspirin [ASA -] 81 mg PO DAILY 04/09/17 Atazanavir Sulfate/Cobicistat 1 tab PO DAILY 04/09/17 [Evotaz 300 mg-150 mg Tablet] Atorvastatin Ca [Lipitor] 40 mg PO HS 04/09/17 Carvedilol 12.5 mg PO DAILY 04/09/17 Fosinopril Sodium 40 mg PO DAILY 04/09/17 Lamivudine 150 mg PO DAILY 04/09/17 REVIEW OF SYSTEMS reviwed in chart Neurological Exmaination Alert orineted x 2 , speech is normal EOMI, no face asymmetry, no sensory loss difficulty lifting left shoulder , sensation is normal able to get up and walk ( no dizziness) able to walk in straight line with slight difficulty, and walk on toe and heel reflex are generalized diminished Assessment/PLAN 1.cognitive difficulty could be due to underlying HIV ( cd4 and viral load unknown) -- suggest to do mri of brain and b12,folate tsh 2. Dizziness could be due to metablic disturbance ( TYRESE and high bilirubin) , no evidence of cerebellar dysfunction or stroke identified, he is able to walk and no difficulty with walking -- suggest to correct underlying metablic distubrance, PT 3. no evidence of meningitis or stroke at this time Thanks for consult Bennett Noriega md
--- NOTE | 2017-04-10 17:04 | EKG ---
Test Reason : Blood Pressure : / mmHG Vent. Rate : 050 BPM Atrial Rate : 050 BPM P-R Int : 272 ms QRS Dur : 088 ms QT Int : 444 ms P-R-T Axes : 078 021 088 degrees QTc Int : 404 ms SINUS BRADYCARDIA WITH 1ST DEGREE A-V BLOCK SEPTAL INFARCT (CITED ON OR BEFORE 09-APR-2017) ABNORMAL ECG WHEN COMPARED WITH ECG OF 09-APR-2017 22:13, NO SIGNIFICANT CHANGE WAS FOUND Confirmed by MAURI HODGE MD ([id number]) on 04/10/2017 5:03:42 PM Referred By: Confirmed By:MAURI HODGE MD
--- NOTE | 2017-04-10 17:20 | EKG ---
Test Reason : Blood Pressure : / mmHG Vent. Rate : 056 BPM Atrial Rate : 056 BPM P-R Int : 280 ms QRS Dur : 088 ms QT Int : 412 ms P-R-T Axes : 049 017 071 degrees QTc Int : 397 ms SINUS BRADYCARDIA WITH 1ST DEGREE A-V BLOCK SEPTAL INFARCT , AGE UNDETERMINED ABNORMAL ECG NO PREVIOUS ECGS AVAILABLE REPEAT INDICATED Confirmed by MAURI HODGE MD ([id number]) on 04/10/2017 5:19:51 PM Referred By: Confirmed By:MAURI HODGE MD
[2017-04-10] MEDS: DEXTROSE 5%-NORMAL SALINE 1,000 ML IV SCH (17:47)
[2017-04-10] MEDS: CARVEDILOL 12.5 MG TABLET (FP) PO SCH (22:37)
[2017-04-10] MEDS: ATORVASTATIN CA 40 MG TABLET (FP) PO SCH (22:37)
[2017-04-10] MEDS: SODIUM BICARBONATE 650 MG TABLET PO SCH (22:37)
--- NOTE | 2017-04-11 01:57 | CON.CARD ---
Consult Consult Specialty:: cardiology Reason for Consultation:: multiple CAD and CHF risks; now with weakness, imbalance - History of Present Illness History of Present Illness: The patient is a 71 year old male with significant past medical history of HIV, hypertension, and diabetes who presents to the ED for 2 weeks of generalized weakness and poor balance. Patient states he is compliant with his treatments for all of his past medical h/o, but has not been seen by a doctor in a year. Patient is from [place] and his son, who lives in [place], decided to bring him here to make sure patient gets proper care. Patient reports decreased appetite for the past 2 months. Denies abdominal pain, nausea, vomiting, or diarrhea. He also has complaints of weight loss, night sweats, and difficulty sleeping. The patient denies fever, chills, cough, SOB, chest pain, and palpitations. - History Source History Provided By: Medical Record - Past Medical History FULFILLMENT ASSOCIATE: Yes: Other (2 month history of increasing memory loss, no formal dementia diagnosis). No: CVA, Peripheral Neuropathy Cardio/Vascular: Yes: HTN (on amlodipine , carvedilol,, forsinopril), Hyperlipdemia (on atorvastatin). No: AFIB, Aneurysm Pulmonary: No: Asthma, COPD, O2 Dependent Gastrointestinal: No: Cancer, Constipation, GERD, Hiatal Hernia Hepatobiliary: Yes: Other (denies any liver disease) Renal/: No: Renal Failure, Renal Inusuff Infectious Disease: Yes: HIV (DIagnosed since 1998). 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 Home Medications - Allergies Allergies/Adverse Reactions: Allergies Allergy/AdvReac Type Severity Reaction Status Date / Time fosinopril Allergy lip Verified 04/16/17 12:31 swelling - Home Medications Home Medications: Ambulatory Orders Abacavir Sulfate [Abacavir] 300 mg PO DAILY 04/09/17 Amlodipine Besylate [Norvasc -] 50 mg PO DAILY 04/09/17 Aspirin [ASA -] 81 mg PO DAILY 04/09/17 Atazanavir Sulfate/Cobicistat [Evotaz 300 mg-150 mg Tablet] 1 tab PO DAILY 04/09 Atorvastatin Ca [Lipitor] 40 mg PO HS 04/09/17 Carvedilol 12.5 mg PO DAILY 04/09/17 Lamivudine 150 mg PO DAILY 04/09/17 Sodium Bicarbonate - 1,300 mg PO TID #180 tablet 04/16/17 Sodium Polystyrene Sulfonate [Kayexalate] 15 gm PO WESA@1000 #1 bottle 04/16/17 Family Disease History - Family Disease History Family History: Denies Review of Systems - Review of Systems Constitutional: reports: Weakness Eyes: reports: No Symptoms HENT: reports: No Symptoms Neck: reports: No Symptoms Cardiovascular: reports: No Symptoms Respiratory: reports: No Symptoms Gastrointestinal: reports: Other (decreased appetite) Genitourinary: reports: No Symptoms Breasts: reports: No Symptoms Reported Musculoskeletal: reports: Muscle Weakness Integumentary: reports: No Symptoms Neurological: reports: Weakness Endocrine: reports: No Symptoms Hematology/Lymphatic: reports: No Symptoms Psychiatric: reports: No Symptoms - Risk Factors Known Risk Factors: Yes: Age, Gender, Hypertension Vital Signs: Vital Signs Temperature 97.8 F 04/10/17 20:20 Pulse Rate 52 L 04/10/17 20:20 Respiratory Rate 20 04/10/17 20:21 Blood Pressure 142/67 04/10/17 20:20 O2 Sat by Pulse Oximetry (%) 98 04/10/17 20:21 Constitutional: Yes: Calm Eyes: Yes: WNL HENT: Yes: WNL Neck: Yes: WNL Respiratory: Yes: Regular Gastrointestinal: Yes: Soft Renal/: No: Anuria Cardiovascular: Yes: Bradycardia JVD: No Carotid Bruit: No PMI: Non-Displaced Heart Sounds: Yes: S1 (split S1), S2, S4 Murmur: Yes: Systolic Murmur, Grade 2 Musculoskeletal: Yes: Muscle Weakness Edema: No Peripheral Pulses WNL: No Peripheral Pulses: 1+ Left Doralis Pedis, 1+ Right Dorsalis Pedis Integumentary: Yes: WNL Neurological: Yes: Weakness Psychiatric: Yes: Alert, Oriented - Other Data Labs, Other Data: CBC, BMP 04/10/17 05:35 INR, PTT INR 1.10 (0.82-1.09) 04/09/17 23:35 Troponin, BNP 04/10/17 04/10/17 04/10/17 05:35 05:35 12:25 Troponin I Cancelled < 0.02 < 0.02 Troponin, BNP 04/10/17 04/10/17 04/10/17 05:35 05:35 12:25 Troponin I Cancelled < 0.02 < 0.02 Echo: Pending Imaging - Results Chest X-ray: Image Reviewed (no acute pathology) EKG: Image Reviewed (sinus bradycardia; 1st degree AVB) Problem List - Problems (1) Generalized weakness Assessment/Plan: hx syncope. F/u orthostatic vital signs. fluids; increase PO intake. Physical rehabilitation. Code(s): R53.1 - WEAKNESS (2) HIV disease Assessment/Plan: on HIV medication regime per ID. F/u ECHO for LVEF, chamber sizes, valve status. Code(s): B20 - HUMAN IMMUNODEFICIENCY VIRUS [HIV] DISEASE (3) HTN (hypertension) Assessment/Plan: on carvedilol and amlodipine. ECHO for LVEF, diastolic compliance, valve status, wall thickness. Code(s): I10 - ESSENTIAL (PRIMARY) HYPERTENSION Qualifiers: Hypertension type: essential hypertension Qualified Code(s): I10 - Essential (primary) hypertension (4) Renal insufficiency Code(s): N28.9 - DISORDER OF KIDNEY AND URETER, UNSPECIFIED
[2017-04-11] MEDS: SODIUM BICARBONATE 650 MG TABLET PO SCH ×3 (07:09→21:30)
[2017-04-11 08:05] LABS: BASOPHIL 0.4 % (0-2.0); EOSINOPHIL 2.1 % (0-4.5); MCH 28.9 pg (25.7-33.7); MCHC 33.3 g/dl (32.0-35.9); MEAN CELL VOLUME 86.9 fl (80-96); MEAN PLT VOLUME 8.2 fl (7.5-11.1); NEUTROPHILS 57.5 % (42.8-82.8); PLATELET COUNT 186 K/MM3 (134-434); RDW 15.5 % (11.9-15.9); WHITE BLOOD COUNT 3.6 K/mm3 (4.0-10.0)
[2017-04-11 08:34] LABS: ALBUMIN 2.6 g/dl (3.4-5.0); ANION GAP 10 (8-16); BILIRUBIN,TOTAL 3.5 mg/dL (0.2-1.0); CALCIUM 8.7 mg/dL (8.5-10.1); CO2 15 mmol/L (21-32); CREATININE 2.1 mg/dL (0.7-1.3); GLUCOSE,RANDOM 123 mg/dL (74-106); SGOT/AST 16 U/L (15-37); SGPT/ALT 12 U/L (12-78); TOT PROT 5.8 g/dl (6.4-8.2)
[2017-04-11 08:35] LABS: ALK PHOS 117 U/L (45-117)
--- NOTE | 2017-04-11 08:48 | PN ---
Physical Exam: SUBJECTIVE: Patient seen and examined. Feels well, although still without appetite. OBJECTIVE: Vital Signs Period Temp Pulse Resp BP Sys/Latham Pulse Ox Last 24 Hr 97.2 F-98.5 F 52-60 18-20 97-142/59-81 98-99 GENERAL: The patient is awake, alert, and fully oriented, in no acute distress. HEAD: Normal with no signs of trauma. EYES: PERRL, extraocular movements intact, sclera midly icteric, conjunctiva clear. No ptosis. ENT: Ears normal, nares patent, oropharynx clear without exudates, moist mucous membranes. NECK: Trachea midline, full range of motion, supple. LUNGS: Breath sounds equal, clear to auscultation bilaterally, no wheezes, no crackles, no accessory muscle use. HEART: Regular rate and rhythm, S1, S2 without murmur, rub or gallop. ABDOMEN: Soft, nontender, nondistended, normoactive bowel sounds, no guarding, no rebound, no hepatosplenomegaly, no masses. EXTREMITIES: 2+ pulses, warm, well-perfused, no edema. NEUROLOGICAL: Cranial nerves II through XII grossly intact. Normal speech, gait steady. PSYCH: Normal mood, normal affect. SKIN: Area of edema and bullae x 3 left upper arm at site of tape/dressing. Laboratory Results - last 24 hr 04/10/17 04/10/17 04/10/17 05:35 05:35 05:35 WBC RBC Hgb Hct MCV MCH MCHC RDW Plt Count MPV Neutrophils % Lymphocytes % Monocytes % Eosinophils % Basophils % Sodium 135 L Potassium 4.7 Chloride 112 H Carbon Dioxide 15 L Anion Gap 8 BUN 40 H Creatinine 2.6 H Creat Clearance w eGFR Random Glucose 92 Hemoglobin A1c % 6.1 H Calcium 9.1 Total Bilirubin AST ALT Alkaline Phosphatase Creatine Kinase 251 Creatine Kinase Index 1.3 CK-MB (CK-2) 3.2 CK-MB (CK-2) Rel Index Cancelled Troponin I < 0.02 Total Protein Albumin Triglycerides 151 Cholesterol 87 Total LDL Cholesterol 43 HDL Cholesterol 35 L Vitamin B12 Urine Color Urine Appearance Urine pH Ur Specific [place] Urine Protein Urine Glucose (UA) Urine Ketones Urine Blood Urine Nitrite Urine Bilirubin Urine Urobilinogen Ur Leukocyte Esterase Urine RBC Urine WBC Urine Creatinine 04/10/17 04/10/17 04/10/17 12:00 12:25 12:25 WBC RBC Hgb Hct MCV MCH MCHC RDW Plt Count MPV Neutrophils % Lymphocytes % Monocytes % Eosinophils % Basophils % Sodium Potassium Chloride Carbon Dioxide Anion Gap BUN Creatinine Creat Clearance w eGFR Random Glucose Hemoglobin A1c % Calcium Total Bilirubin AST ALT Alkaline Phosphatase Creatine Kinase 271 Creatine Kinase Index CK-MB (CK-2) CK-MB (CK-2) Rel Index 1.5 Troponin I < 0.02 Total Protein Albumin Triglycerides Cholesterol Total LDL Cholesterol HDL Cholesterol Vitamin B12 559 Urine Color Urine Appearance Urine pH Ur Specific [place] Urine Protein Urine Glucose (UA) Urine Ketones Urine Blood Urine Nitrite Urine Bilirubin Urine Urobilinogen Ur Leukocyte Esterase Urine RBC Urine WBC Urine Creatinine 04/10/17 04/10/17 04/11/17 14:30 14:30 05:48 WBC 3.6 L RBC 3.24 L Hgb 9.4 L Hct 28.1 L MCV 86.9 MCH 28.9 MCHC 33.3 RDW 15.5 Plt Count 186 MPV 8.2 Neutrophils % 57.5 Lymphocytes % 30.2 Monocytes % 9.8 Eosinophils % 2.1 Basophils % 0.4 Sodium Potassium Chloride Carbon Dioxide Anion Gap BUN Creatinine Creat Clearance w eGFR Random Glucose Hemoglobin A1c % Calcium Total Bilirubin AST ALT Alkaline Phosphatase Creatine Kinase Creatine Kinase Index CK-MB (CK-2) CK-MB (CK-2) Rel Index Troponin I Total Protein Albumin Triglycerides Cholesterol Total LDL Cholesterol HDL Cholesterol Vitamin B12 Urine Color Ltyellow Urine Appearance Clear Urine pH 5.0 Ur Specific [place] 1.010 Urine Protein 1+ H Urine Glucose (UA) Negative Urine Ketones Negative Urine Blood 1+ H Urine Nitrite Negative Urine Bilirubin Negative Urine Urobilinogen Negative Ur Leukocyte Esterase 1+ H Urine RBC <1 Urine WBC 5 Urine Creatinine 123.0 04/11/17 05:48 WBC RBC Hgb Hct MCV MCH MCHC RDW Plt Count MPV Neutrophils % Lymphocytes % Monocytes % Eosinophils % Basophils % Sodium 137 Potassium 5.1 Chloride 112 H Carbon Dioxide 15 L Anion Gap 10 BUN 36 H Creatinine 2.1 H Creat Clearance w eGFR 31.38 Random Glucose 123 H D Hemoglobin A1c % Calcium 8.7 Total Bilirubin 3.5 H AST 16 ALT 12 Alkaline Phosphatase 117 Creatine Kinase Creatine Kinase Index CK-MB (CK-2) CK-MB (CK-2) Rel Index Troponin I Total Protein 5.8 L Albumin 2.6 L Triglycerides Cholesterol Total LDL Cholesterol HDL Cholesterol Vitamin B12 Urine Color Urine Appearance Urine pH Ur Specific [place] Urine Protein Urine Glucose (UA) Urine Ketones Urine Blood Urine Nitrite Urine Bilirubin Urine Urobilinogen Ur Leukocyte Esterase Urine RBC Urine WBC Urine Creatinine Active Medications Generic Name Dose Route Start Last Admin Trade Name Katherine PRN Reason Stop Dose Admin Abacavir Sulfate 300 mg 04/11/17 22:00 Ziagen - PO BID RONAL Amlodipine Besylate 5 mg 04/11/17 10:00 Norvasc - PO DAILY RONAL Aspirin 81 mg 04/10/17 10:00 04/10/17 09:59 Asa - PO 81 mg DAILY RONAL Administration Atorvastatin Calcium 40 mg 04/10/17 22:00 04/10/17 22:37 Lipitor - PO 40 mg HS RONAL Administration Carvedilol 12.5 mg 04/10/17 22:00 04/10/17 22:37 Coreg - PO Not Given BID RONAL Dextrose/Sodium Chloride 1,000 mls @ 42 mls/hr 04/10/17 16:45 04/10/17 17:47 D5-Ns - IV 42 mls/hr ASDIR RONAL Administration Lamivudine 150 mg 04/10/17 10:00 04/10/17 10:00 Epivir - PO 150 mg DAILY RONAL Administration Megestrol Acetate 800 mg 04/10/17 13:15 04/10/17 16:19 Megace Oral Suspension - PO 800 mg DAILY RONAL Administration Atazanavir Sulfate 1 tab 04/10/17 10:00 04/10/17 12:45 300 Mg/Cobicistat PO 1 tab 150mg (Evotaz) -Pt's DAILY RONAL Administration Own Sodium Bicarbonate 650 mg 04/10/17 22:00 04/11/17 07:09 Sodium Bicarbonate - PO 650 mg TID RONAL Administration Imaging CXR 04/10: No active pulmonary disease HCT 04/10: No acute intracranial process Renal u/s 04/10: Mildly echogenic kidneys raising possibility of medical renal disease ASSESSMENT/PLAN: 71 year old male with a history of HTN, DM, HIV on HAART therapy, admitted from the ED with generalized weakness, fatigue, poor appetite , and unsteady gait. 1. Renal insufficiency -Baseline creatinine unknown, but patient and family are not aware of any renal disease history -Downtrending now with IV fluids (2.1<--3.0) -Hold Lisinopril -Mild hyperkalemia, treated and resolved -Need to obtain urine sodium -On sodium bicarbonate supplementation (HCO3- 15) -Nephrology following 2. 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 Syncopal episodes -Suspect secondary to poor oral intake -Trops neg x 3 -No events on telemetry -Follow up Lyme (heart block) 4. HIV -Unknown CD4; patient has not seen MD for >1yr - has been on HAART since 1998 and denies any history of OIs -Reports compliance with medications -Has moved from [place] and will need to be connected with the [facility] -ID evaluation requested 5. DM -Was prescribed sliding scale insulin but does not use it -Currently normoglycemic with poor PO intake -Follow chemistry and start ISS if needed -Diabetic diet 6. Dementia (suspected), reported gait disturbance -Gait has been observed to be normal during admission -CTH: No acute intracranial process -MRI brain pending -Follow up TSH, B12, folate -Neurology following 7. HTN -BPs at goal -Continue Norvasc -Hold Lisinopril pending renal workup 8. HLD -Continue statin 9. Upper arm rash/swelling -No tenderness to suggest DVT; no erythema or warmth to suggest cellulitis; patient did not have IV catheter at this site -?adhesive reaction -Elevate arm -Monitor 10. Hyperbilirubinemia, jaundice -Suspect secondary to ARV -Stable, follow 11. FEN -NS@100ml/hr -Replete lytes prn -Diabetic/sodium-controlled diet 12. DVT Prophylaxis -[facility] Code Status: Full Code Dispo: Requires inpatient care. Can dc telemetry. Visit type - Emergency Visit Emergency Visit: No - New Patient This patient is new to me today: No - Critical Care Critical Care patient: No - Discharge Referral Referred to [facility] Med P.C.: No
--- NOTE | 2017-04-11 09:26 | PN ---
Progress Note, Physician History of Present Illness: The patient is a 71 year old male with significant past medical history of HIV, hypertension, and diabetes who presents to the ED for 2 weeks of generalized weakness and poor balance. Patient states he is compliant with his treatments for all of his past medical h/o, but has not been seen by a doctor in a year. Patient is from [place] and his son, who lives in [place], decided to bring him here to make sure patient gets proper care. Patient reports decreased appetite for the past 2 months. Denies abdominal pain, nausea, vomiting, or diarrhea. He also has complaints of weight loss, night sweats, and difficulty sleeping. - Current Medication List Current Medications: Active Medications Abacavir Sulfate (Ziagen -) 300 mg PO BID [facility] Amlodipine Besylate (Norvasc -) 5 mg PO DAILY [facility] Aspirin (Asa -) 81 mg PO DAILY [facility] Last Admin: 04/10/17 09:59 Dose: 81 mg Atorvastatin Calcium (Lipitor -) 40 mg PO HS [facility] Last Admin: 04/10/17 22:37 Dose: 40 mg Carvedilol (Coreg -) 12.5 mg PO BID [facility] Last Admin: 04/10/17 22:37 Dose: Not Given Dextrose/Sodium Chloride (D5-Ns -) 1,000 mls @ 42 mls/hr IV ASDIR [facility] Last Admin: 04/10/17 17:47 Dose: 42 mls/hr Lamivudine (Epivir -) 150 mg PO DAILY [facility] Last Admin: 04/10/17 10:00 Dose: 150 mg Megestrol Acetate (Megace Oral Suspension -) 800 mg PO DAILY [facility] Last Admin: 04/10/17 16:19 Dose: 800 mg Atazanavir Sulfate 300 Mg/Cobicistat 150mg (Evotaz) -Pt's Own 1 tab PO DAILY [facility] Last Admin: 04/10/17 12:45 Dose: 1 tab Sodium Bicarbonate (Sodium Bicarbonate -) 650 mg PO TID [facility] Last Admin: 04/11/17 07:09 Dose: 650 mg - Objective Vital Signs: Vital Signs Temperature 98.0 F 04/11/17 06:00 Pulse Rate 58 L 04/11/17 06:00 Respiratory Rate 20 04/11/17 06:00 Blood Pressure 110/60 04/11/17 06:00 O2 Sat by Pulse Oximetry (%) 98 04/10/17 20:21 Eyes: Yes: WNL, Conjunctiva Clear, EOM Intact HENT: Yes: WNL, Atraumatic, Normocephalic Neck: Yes: WNL, Supple, Trachea Midline Cardiovascular: Yes: WNL, Regular Rate and Rhythm Respiratory: Yes: WNL, Regular, CTA Bilaterally Gastrointestinal: Yes: WNL, Normal Bowel Sounds Genitourinary: Yes: WNL Musculoskeletal: Yes: WNL Extremities: Yes: WNL Edema: No Integumentary: Yes: WNL Neurological: Yes: WNL, Alert, Oriented ...Motor Strength: WNL Psychiatric: Yes: WNL Labs: CBC, BMP 04/11/17 05:48 04/11/17 05:48 INR, PTT INR 1.10 (0.82-1.09) 04/09/17 23:35 Assessment/Plan hiv dementia syncope htn dm hlp failure to thrive plan; cont present rx check echo cont telemetry
[2017-04-11] MEDS: amLODIPine BESYLATE 5 MG TABLET (FP) PO SCH (09:49)
[2017-04-11] MEDS: ASPIRIN 81 MG CHEWABLE TABLETS PO SCH (09:49)
[2017-04-11] MEDS: lamiVUDine 150 MG TABLET PO SCH (09:51)
[2017-04-11] MEDS: ABACAVIR SULFATE 300 MG TABLET PO SCH ×2 (09:52→21:30)
[2017-04-11] MEDS: MEGESTROL ACETATE 400 MG/10 ML UNIT DOSE CUP PO SCH (09:55)
[2017-04-11] MEDS: CARVEDILOL 12.5 MG TABLET (FP) PO SCH ×2 (09:57→21:23)
[2017-04-11] MEDS: ATAZANAVIR SULFATE PO SCH (09:57)
[2017-04-11] MEDS: COBICISTAT 150 MG PO SCH (09:57)
--- NOTE | 2017-04-11 11:15 | PN ---
Physical Exam: SUBJECTIVE: Patient seen and examined at bedside. No overnight events. No new complaints. Feels well overall. Denies CP,MENDOZA, palpitations, abd.pain, N/V. OBJECTIVE: Vital Signs Period Temp Pulse Resp BP Sys/[place]atham Pulse Ox Last 24 Hr 97.2 F-98.5 F 52-60 18-20 97-142/59-81 98 GENERAL: AAOx3, NAD HEAD:NC/AT EYES: Mild scleral icterus. PERRL, extraocular movements intact, conjunctiva clear. No ptosis. ENT: moist mucous membranes. NECK: supple, No JVD LUNGS:CTAB , no wheezing or rales. HEART: RRR, S1S2, No M/G/R ABDOMEN: soft, NT, ND, BS(+), no masses or organomegally. EXTREMITIES: 2+ pulses, warm, well-perfused, no edema. NEUROLOGICAL: Cranial nerves II through XII grossly intact. Normal speech, gait not observed. PSYCH: Normal mood, normal affect. SKIN: Warm, dry, normal turgor, no rashes or lesions noted Laboratory Results - last 24 hr 04/10/17 04/10/17 04/10/17 05:35 12:00 12:25 WBC RBC Hgb Hct MCV MCH MCHC RDW Plt Count MPV Neutrophils % Lymphocytes % Monocytes % Eosinophils % Basophils % Sodium Potassium Chloride Carbon Dioxide Anion Gap BUN Creatinine Creat Clearance w eGFR Random Glucose Hemoglobin A1c % 6.1 H Calcium Total Bilirubin AST ALT Alkaline Phosphatase Creatine Kinase 271 CK-MB (CK-2) Rel Index Troponin I < 0.02 Total Protein Albumin Vitamin B12 559 Urine Color Urine Appearance Urine pH Ur Specific [place] Urine Protein Urine Glucose (UA) Urine Ketones Urine Blood Urine Nitrite Urine Bilirubin Urine Urobilinogen Ur Leukocyte Esterase Urine RBC Urine WBC Urine Creatinine RPR Titer 04/10/17 04/10/17 04/10/17 12:25 14:30 14:30 WBC RBC Hgb Hct MCV MCH MCHC RDW Plt Count MPV Neutrophils % Lymphocytes % Monocytes % Eosinophils % Basophils % Sodium Potassium Chloride Carbon Dioxide Anion Gap BUN Creatinine Creat Clearance w eGFR Random Glucose Hemoglobin A1c % Calcium Total Bilirubin AST ALT Alkaline Phosphatase Creatine Kinase CK-MB (CK-2) Rel Index 1.5 Troponin I Total Protein Albumin Vitamin B12 Urine Color Ltyellow Urine Appearance Clear Urine pH 5.0 Ur Specific [place] 1.010 Urine Protein 1+ H Urine Glucose (UA) Negative Urine Ketones Negative Urine Blood 1+ H Urine Nitrite Negative Urine Bilirubin Negative Urine Urobilinogen Negative Ur Leukocyte Esterase 1+ H Urine RBC <1 Urine WBC 5 Urine Creatinine 123.0 RPR Titer 04/11/17 04/11/17 04/11/17 05:48 05:48 05:48 WBC 3.6 L RBC 3.24 L Hgb 9.4 L Hct 28.1 L MCV 86.9 MCH 28.9 MCHC 33.3 RDW 15.5 Plt Count 186 MPV 8.2 Neutrophils % 57.5 Lymphocytes % 30.2 Monocytes % 9.8 Eosinophils % 2.1 Basophils % 0.4 Sodium 137 Potassium 5.1 Chloride 112 H Carbon Dioxide 15 L Anion Gap 10 BUN 36 H Creatinine 2.1 H Creat Clearance w eGFR 31.38 Random Glucose 123 H D Hemoglobin A1c % Calcium 8.7 Total Bilirubin 3.5 H AST 16 ALT 12 Alkaline Phosphatase 117 Creatine Kinase CK-MB (CK-2) Rel Index Troponin I Total Protein 5.8 L Albumin 2.6 L Vitamin B12 Urine Color Urine Appearance Urine pH Ur Specific [place] Urine Protein Urine Glucose (UA) Urine Ketones Urine Blood Urine Nitrite Urine Bilirubin Urine Urobilinogen Ur Leukocyte Esterase Urine RBC Urine WBC Urine Creatinine RPR Titer Nonreactive Active Medications Generic Name Dose Route Start Last Admin Trade Name Johnq PRN Reason Stop Dose Admin Abacavir Sulfate 300 mg 04/11/17 22:00 04/11/17 09:52 Ziagen - PO 300 mg BID RONAL Administration Amlodipine Besylate 5 mg 04/11/17 10:00 04/11/17 09:49 Norvasc - PO 5 mg DAILY RONAL Administration Aspirin 81 mg 04/10/17 10:00 04/11/17 09:49 Asa - PO 81 mg DAILY RONAL Administration Atorvastatin Calcium 40 mg 04/10/17 22:00 04/10/17 22:37 Lipitor - PO 40 mg HS RONAL Administration Carvedilol 12.5 mg 04/10/17 22:00 04/11/17 09:57 Coreg - PO Not Given BID RONAL Dextrose/Sodium Chloride 1,000 mls @ 42 mls/hr 04/10/17 16:45 04/10/17 17:47 D5-Ns - IV 42 mls/hr ASDIR RONAL Administration Lamivudine 150 mg 04/10/17 10:00 04/11/17 09:51 Epivir - PO 150 mg DAILY RONAL Administration Megestrol Acetate 800 mg 04/10/17 13:15 04/11/17 09:55 Megace Oral Suspension - PO 800 mg DAILY RONAL Administration Atazanavir Sulfate 1 tab 04/10/17 10:00 04/11/17 09:57 300 Mg/Cobicistat PO 1 tab 150mg (Evotaz) -Pt's DAILY RONAL Administration Own Sodium Bicarbonate 650 mg 04/10/17 22:00 04/11/17 07:09 Sodium Bicarbonate - PO 650 mg TID RONAL Administration IMAGING: * EXAM#: TYPE/EXAM: RESULT: [id number] US/KIDNEY / RENAL US Bilateral renal ultrasound: HISTORY: Elevated creatinine. Ultrasound of the kidneys is performed bilaterally. Right kidney measures 12.2 cm in length and demonstrates an upper to mid pole cyst measuring up to 6 cm in size. Left kidney measures 11.3 cm in length with a complex cyst in the lower pole measuring up to 1.7 cm in size. The kidneys appear mildly echogenic raising possibility of medical renal disease. Flow is demonstrated bilaterally with color Doppler. IMPRESSION: Mildly echogenic kidneys raising possibility of medical renal disease. Large right upper pole cyst. Complex cyst in the lower pole of the left kidney and recommend follow-up. Reported By: Annie Henriquez MD 04/11/17 0800 ASSESSMENT/PLAN: 71 y/o male with a past medical history of HTN, HIV, DM, Dementia who presents to the ED with generalized weakness, unsteady gait x 2 weeks. Admitted for hyperkalemia and TYRESE. Problem List - Problems (1) TYRESE (acute kidney injury) Assessment/Plan: * Kidney function improving with IVF * Urine lyte, cr, and protein pending. * HIV viral load and CD4 count pending. * Kidney and bladder US shows complex cyst in lower pole * urine Na not done; needed to calculate FeNA * Avoid nephrotoxins * repeat BMP in AM * Given his PMHx of HIV and HAART therapy consider FSGN vs. crystal formation will need outpatient W/U * Will continue to follow. (2) Hyperkalemia Assessment/Plan: * resolved * will continue to monitor (3) HIV disease Assessment/Plan: * CD4 and Viral load pending. * Abacavir Sulfate (Ziagen -) 300 mg PO BID * Lamivudine (Epivir -) 150 mg PO DAILY * Atazanavir Sulfate 300 Mg/Cobicistat 150mg (Evotaz) -Pt's Own 1 tab PO DAILY (4) HTN (hypertension) Assessment/Plan: * Amlodipine Besylate (Norvasc -) 5 mg PO DAILY * Aspirin (Asa -) 81 mg PO DAILY * Atorvastatin Calcium (Lipitor -) 40 mg PO HS * Carvedilol (Coreg -) 12.5 mg PO BID RONAL (5) DVT prophylaxis Visit type - Emergency Visit Emergency Visit: Yes ED Registration Date: 04/10/17 Care time: The patient presented to the Emergency Department on the above date and was hospitalized for further evaluation of their emergent condition. - New Patient This patient is new to me today: No - Critical Care Critical Care patient: No
--- NOTE | 2017-04-11 11:49 | EKG ---
Test Reason : Blood Pressure : / mmHG Vent. Rate : 053 BPM Atrial Rate : 053 BPM P-R Int : 254 ms QRS Dur : 082 ms QT Int : 398 ms P-R-T Axes : 044 026 133 degrees QTc Int : 373 ms SINUS BRADYCARDIA WITH 1ST DEGREE A-V BLOCK NONSPECIFIC T WAVE ABNORMALITY ABNORMAL ECG WHEN COMPARED WITH ECG OF 10-APR-2017 05:28, CRITERIA FOR SEPTAL INFARCT ARE NO LONGER PRESENT T WAVE INVERSION MORE EVIDENT IN LATERAL LEADS Confirmed by JOSE JONES MD ([id number]) on 04/11/2017 11:49:03 AM Referred By: Cooper MALIK Confirmed By:JOSE JONES MD
[2017-04-11 11:50] LABS: THYROID STIMULATING HORMONE 0.04 uIU/ml (0.358-3.74)
--- NOTE | 2017-04-11 12:36 | PN ---
Progress Note, Physician History of Present Illness: Saw patient this afternoon having lunch C/O of swollen left arm at site of previous iv line with 3 blisters echo cannot exclude mitral or aortic valve vegetations has tricuspid regurgitation no fever cough or SOB - Current Medication List Current Medications: Active Medications Abacavir Sulfate (Ziagen -) 300 mg PO BID [facility] Last Admin: 04/11/17 09:52 Dose: 300 mg Amlodipine Besylate (Norvasc -) 5 mg PO DAILY [facility] Last Admin: 04/11/17 09:49 Dose: 5 mg Aspirin (Asa -) 81 mg PO DAILY [facility] Last Admin: 04/11/17 09:49 Dose: 81 mg Atorvastatin Calcium (Lipitor -) 40 mg PO HS [facility] Last Admin: 04/10/17 22:37 Dose: 40 mg Carvedilol (Coreg -) 12.5 mg PO BID [facility] Last Admin: 04/11/17 09:57 Dose: Not Given Dextrose/Sodium Chloride (D5-Ns -) 1,000 mls @ 42 mls/hr IV ASDIR [facility] Last Admin: 04/10/17 17:47 Dose: 42 mls/hr Lamivudine (Epivir -) 150 mg PO DAILY [facility] Last Admin: 04/11/17 09:51 Dose: 150 mg Megestrol Acetate (Megace Oral Suspension -) 800 mg PO DAILY [facility] Last Admin: 04/11/17 09:55 Dose: 800 mg Atazanavir Sulfate 300 Mg/Cobicistat 150mg (Evotaz) -Pt's Own 1 tab PO DAILY [facility] Last Admin: 04/11/17 09:57 Dose: 1 tab Sodium Bicarbonate (Sodium Bicarbonate -) 650 mg PO TID [facility] Last Admin: 04/11/17 07:09 Dose: 650 mg - Objective Vital Signs: Vital Signs Temperature 98.1 F 04/11/17 08:51 Pulse Rate 53 L 04/11/17 08:51 Respiratory Rate 20 04/11/17 08:51 Blood Pressure 106/60 04/11/17 08:51 O2 Sat by Pulse Oximetry (%) 100 04/11/17 09:00 Constitutional: Yes: Thin Eyes: Yes: Sclera Icterus HENT: No: Thrush Neck: No: Tenderness Cardiovascular: Yes: Bradycardia, Murmur (R sternal border), S1, S2 Respiratory: No: Cough, Rales, Wheezes ...Rectal Exam: Yes: Deferred Genitourinary: No: Anuria, CVA Tenderness - Left, CVA Tenderness - Right Edema: No Labs: CBC, BMP 04/11/17 05:48 04/11/17 05:48 INR, PTT INR 1.10 (0.82-1.09) 04/09/17 23:35 Has a positive leukocyte esterase. Problem List - Problems (1) Generalized weakness Code(s): R53.1 - WEAKNESS (2) Syncope Code(s): R55 - SYNCOPE AND COLLAPSE (3) HIV disease Code(s): B20 - HUMAN IMMUNODEFICIENCY VIRUS [HIV] DISEASE (4) Dementia Code(s): F03.90 - UNSPECIFIED DEMENTIA WITHOUT BEHAVIORAL DISTURBANCE Qualifiers: Dementia type: unspecified type Dementia behavioral disturbance: without behavioral disturbance Qualified Code(s): F03.90 - Unspecified dementia without behavioral disturbance Impression/Plan Impression/Plan: HIV , DM , HTN with 1st degree heart block and history of syncope leukocyte esterase 1+ in UA Echo cannot rule out aortic or mitral vegetations, has tricuspid regurgitation: Plan: Blood cultures X2 CRP Sedimentation rate urine cultures contine home meds Visit type - Emergency Visit Emergency Visit: No - New Patient This patient is new to me today: No - Critical Care Critical Care patient: No - Discharge Referral Referred to [facility] Med P.C.: No
[2017-04-11 12:59] LABS: URINE CREATININE 69.7 mg/dL (20-370)
--- NOTE | 2017-04-11 13:43 | PN ---
Teaching Attending Note Name of Resident: Jason Seymour (Nephrology) ATTENDING PHYSICIAN STATEMENT I saw and evaluated the patient. I reviewed the resident's note and discussed the case with the resident. I agree with the resident's findings and plan as documented. Current Medications Generic Name Dose Route Start Last Admin Trade Name Katherine PRN Reason Stop Dose Admin Abacavir Sulfate 300 mg 04/11/17 22:00 04/11/17 09:52 Ziagen - PO 300 mg BID [facility] Administration Amlodipine Besylate 5 mg 04/11/17 10:00 04/11/17 09:49 Norvasc - PO 5 mg DAILY [facility] Administration Aspirin 81 mg 04/10/17 10:00 04/11/17 09:49 Asa - PO 81 mg DAILY [facility] Administration Atorvastatin Calcium 40 mg 04/10/17 22:00 04/10/17 22:37 Lipitor - PO 40 mg HS [facility] Administration Carvedilol 12.5 mg 04/10/17 22:00 04/11/17 09:57 Coreg - PO Not Given BID [facility] Dextrose/Sodium Chloride 1,000 mls @ 42 mls/hr 04/10/17 16:45 04/10/17 17:47 D5-Ns - IV 42 mls/hr ASDIR [facility] Administration Lamivudine 150 mg 04/10/17 10:00 04/11/17 09:51 Epivir - PO 150 mg DAILY [facility] Administration Megestrol Acetate 800 mg 04/10/17 13:15 04/11/17 09:55 Megace Oral Suspension - PO 800 mg DAILY [facility] Administration Atazanavir Sulfate 1 tab 04/10/17 10:00 04/11/17 09:57 300 Mg/Cobicistat PO 1 tab 150mg (Evotaz) -Pt's DAILY [facility] Administration Own Sodium Bicarbonate 650 mg 04/10/17 22:00 04/11/17 13:29 Sodium Bicarbonate - PO 650 mg TID [facility]ON[facility] Administration Last Vital Signs Temp Pulse Resp BP Pulse Ox 98.1 F 53 L 20 106/60 100 04/11/17 08:51 04/11/17 08:51 04/11/17 08:51 04/11/17 08:51 04/11/17 09:00 Laboratory Tests 04/10/17 04/11/17 04/11/17 14:30 05:48 05:48 Creatinine 2.1 H Urine Protein 1+ H Urine Blood 1+ H Protein/Creatinin Ratio JAZLYN Screen Pending 04/11/17 11:39 Creatinine Urine Protein Urine Blood Protein/Creatinin Ratio 0.357 JAZLYN Screen cardio s1s2 reg pulm clear Gi soft ext neg edema neuro awake Impression 1. TYRESE with likely CKD - unclear baseline creatinine 2. HIV 3. DM 4. HTN 5. hx dementia 6. decreased PO intake 7. hyperlipidemia 8. complex renal cyst Plan - u/s shows echogenic kidneys - cont po bicarb - renal function is improving - workup is in progress - ID follow up - complex cyst will need further imaging/urology follow up - pt will need an outpt renal workup and follow up as well - will follow
--- NOTE | 2017-04-11 20:06 | PN ---
Teaching Attending Note Name of Resident: Eli Solis ATTENDING PHYSICIAN STATEMENT I saw and evaluated the patient. I reviewed the resident's note and discussed the case with the resident. I agree with the resident's findings and plan as documented. SUBJECTIVE: OBJECTIVE: ASSESSMENT AND PLAN: Syncope HIV + ? AIDS Await CD4 Continue ART RPR (-) Lyme pending
[2017-04-11] MEDS: DEXTROSE 5%-NORMAL SALINE 1,000 ML IV SCH (21:23)
[2017-04-11] MEDS: ATORVASTATIN CA 40 MG TABLET (FP) PO SCH (21:30)
[2017-04-12 00:08] LABS: % CD 3 POS. LYMPH. 81.2 % (57.5-86.2); %CD3+CD4+CD8+ 0.8 % (Not Estab.); %CD3+CD4+CD8- 23.2 % (Not Estab.); %CD3+CD4-CD8+ 54.3 % (Not Estab.); %CD3+CD4-CD8- 2.9 % (Not Estab.); ABSO. CD 3 1137 /uL (622-2402); ABSOLUTE CD 4 HELPER 336 /uL (359-1519); AbsCD3+CD4+CD8+ 11 /uL (Not Estab.); AbsCD3+CD4-CD8+ 760 /uL (Not Estab.); AbsCD3+CD4-CD8- 41 /uL (Not Estab.); CD4/CD8 0.44 (0.92-3.72); CD4/CD8 NYSDOH RATIO 0.43 (Not Estab.); WHITE BLOOD COUNT 3.6 x10E3/uL (3.4-10.8)
[2017-04-12] MEDS: SODIUM BICARBONATE 650 MG TABLET PO SCH ×3 (06:13→21:20)
[2017-04-12 07:53] LABS: BASOPHIL 0.2 % (0-2.0); EOSINOPHIL 1.1 % (0-4.5); MCH 28.7 pg (25.7-33.7); MCHC 33.3 g/dl (32.0-35.9); MEAN CELL VOLUME 86.2 fl (80-96); MEAN PLT VOLUME 7.9 fl (7.5-11.1); PLATELET COUNT 173 K/MM3 (134-434); RDW 15.7 % (11.9-15.9); WHITE BLOOD COUNT 3.5 K/mm3 (4.0-10.0)
[2017-04-12 08:26] LABS: ANION GAP 7 (8-16); CALCIUM 8.7 mg/dL (8.5-10.1); CO2 17 mmol/L (21-32); GLUCOSE,RANDOM 104 mg/dL (74-106)
[2017-04-12] MEDS: COBICISTAT 150 MG PO SCH (09:18)
[2017-04-12] MEDS: lamiVUDine 150 MG TABLET PO SCH (09:18)
[2017-04-12] MEDS: amLODIPine BESYLATE 5 MG TABLET (FP) PO SCH (09:18)
[2017-04-12] MEDS: ASPIRIN 81 MG CHEWABLE TABLETS PO SCH (09:18)
[2017-04-12] MEDS: ATAZANAVIR SULFATE PO SCH (09:18)
[2017-04-12] MEDS: CARVEDILOL 12.5 MG TABLET (FP) PO SCH ×2 (09:18→21:20)
[2017-04-12] MEDS: ABACAVIR SULFATE 300 MG TABLET PO SCH ×2 (09:19→23:25)
[2017-04-12 09:35] LABS: CREATININE 1.9 mg/dL (0.7-1.3)
[2017-04-12 10:12] LABS: HEMATOCRIT 28.4 % (37.5-51.0)
--- NOTE | 2017-04-12 10:20 | PN ---
Progress Note, Physician History of Present Illness: Saw patient this morning No new complaints, feels stronger, has been able to eat better, no longer feels unstable while walking Less swelling in left arm at site of previous iv line with 2 blisters left CD4 count above 300 No chills or fevers - Current Medication List Current Medications: Active Medications Abacavir Sulfate (Ziagen -) 300 mg PO BID [facility] Last Admin: 04/12/17 09:19 Dose: 300 mg Amlodipine Besylate (Norvasc -) 5 mg PO DAILY [facility] Last Admin: 04/12/17 09:18 Dose: 5 mg Aspirin (Asa -) 81 mg PO DAILY [facility] Last Admin: 04/12/17 09:18 Dose: 81 mg Atorvastatin Calcium (Lipitor -) 40 mg PO HS [facility] Last Admin: 04/11/17 21:30 Dose: 40 mg Carvedilol (Coreg -) 12.5 mg PO BID [facility] Last Admin: 04/12/17 09:18 Dose: 12.5 mg Dextrose/Sodium Chloride (D5-Ns -) 1,000 mls @ 42 mls/hr IV ASDIR [facility] Last Admin: 04/11/17 21:23 Dose: 42 mls/hr Lamivudine (Epivir -) 150 mg PO DAILY [facility] Last Admin: 04/12/17 09:18 Dose: 150 mg Megestrol Acetate (Megace Oral Suspension -) 800 mg PO DAILY [facility] Last Admin: 04/11/17 09:55 Dose: 800 mg Atazanavir Sulfate 300 Mg/Cobicistat 150mg (Evotaz) -Pt's Own 1 tab PO DAILY [facility] Last Admin: 04/12/17 09:18 Dose: 1 tab Sodium Bicarbonate (Sodium Bicarbonate -) 650 mg PO TID [facility] Last Admin: 04/12/17 06:13 Dose: 650 mg - Objective Vital Signs: Vital Signs Temperature 98.6 F 04/12/17 08:00 Pulse Rate 68 04/12/17 08:00 Respiratory Rate 18 04/12/17 08:00 Blood Pressure 112/64 04/12/17 08:00 O2 Sat by Pulse Oximetry (%) 100 04/12/17 08:30 Abnormal Lab Results 04/10/17 04/11/17 04/11/17 02:31 05:48 05:48 WBC RBC Hgb Hct 28.4 L Monocytes % Chloride 112 H Carbon Dioxide 15 L Anion Gap BUN 36 H Creatinine 2.1 H Random Glucose 123 H D Total Bilirubin 3.5 H Total Protein 5.8 L Albumin 2.6 L TSH 0.04 L U Random Total Protein Absolute CD4 [place] 336 L % CD4+ Lymphocyte 24.0 L CD4/CD8 Ratio 0.44 L % CD8+ Lymphocyte 55.0 H 04/11/17 04/12/17 04/12/17 11:39 05:45 05:45 WBC 3.5 L RBC 3.14 L Hgb 9.0 L Hct 27.0 L Monocytes % 11.0 H Chloride 116 H Carbon Dioxide 17 L Anion Gap 7 L BUN 33 H Creatinine 1.9 H Random Glucose Total Bilirubin Total Protein Albumin TSH U Random Total Protein 25 H Absolute CD4 [place] % CD4+ Lymphocyte CD4/CD8 Ratio % CD8+ Lymphocyte Constitutional: Yes: Calm, Pallor, Thin Eyes: Yes: Sclera Icterus HENT: Yes: Atraumatic. No: Nasal Congestion, Pharyngeal Erythema, Thrush Neck: Yes: Supple. No: Lymphadenopathy, Tenderness Cardiovascular: Yes: Regular Rate and Rhythm, Murmur (Sternal border), S1, S2 Respiratory: No: Cough, On Nasal O2, On Venti-Mask, Poor Air Entry, Rales, Rhonchi, SOB Gastrointestinal: Yes: Normal Bowel Sounds. No: Tenderness, Vomiting ...Rectal Exam: Yes: Deferred Genitourinary: No: CVA Tenderness - Left, CVA Tenderness - Right, Rodas Present Edema: No Integumentary: Yes: Other (Reduced swelling of L arm from previous Iv line site ,) Neurological: Yes: Alert, Oriented. No: Aphasia, Lethargy, Tremors Psychiatric: Yes: Alert, Oriented Labs: CBC, BMP 04/12/17 05:45 04/12/17 05:45 INR, PTT INR 1.10 (0.82-1.09) 04/09/17 23:35 Problem List - Problems (1) Generalized weakness Assessment/Plan: Known HIV patient on HAART with improving appetite and strength, no new complaints CD4 count above 300 not dehydrated, age related involution on brain MRI Code(s): R53.1 - WEAKNESS (2) Syncope Assessment/Plan: No episode while in hospital Echo unable to R/O aortic or mitral vegetations Blood culture and urine culture still pending No longer bradycardic or hypotensive Code(s): R55 - SYNCOPE AND COLLAPSE (3) HIV disease Assessment/Plan: Continue HAART Code(s): B20 - HUMAN IMMUNODEFICIENCY VIRUS [HIV] DISEASE (4) Dementia Assessment/Plan: Brain MRI also shows age related involution CD4 count above 300 Lyme titre and RPR pending HIV Ab test preliminary positive Code(s): F03.90 - UNSPECIFIED DEMENTIA WITHOUT BEHAVIORAL DISTURBANCE Qualifiers: Dementia type: unspecified type Dementia behavioral disturbance: without behavioral disturbance Qualified Code(s): F03.90 - Unspecified dementia without behavioral disturbance Impression/Plan Impression/Plan: Patient feels much stronger, is able to eat better and walk with out feeling unbalanced no longer bradycardic or hypotensive, valvular heart disease, awaiting blood culture and urine cultures, CRP and ESR not elevated Preliminary HIV Ab test positive, awaiting confirmation CD4 count above 300, CD4: CD8 ratio below 0.9 Still awaiting lyme titre and RPR Plan: Continue HAART Visit type - Emergency Visit Emergency Visit: No - New Patient This patient is new to me today: No - Critical Care Critical Care patient: No - Discharge Referral Referred to [facility] Med P.C.: No
[2017-04-12] MEDS: MEGESTROL ACETATE 400 MG/10 ML UNIT DOSE CUP PO SCH (10:36)
--- NOTE | 2017-04-12 15:55 | PN ---
Physical Exam: SUBJECTIVE: Patient seen and examined at bedside. No overnight events. No new complaints. OBJECTIVE: Vital Signs Period Temp Pulse Resp BP Sys/Latham Pulse Ox Last 24 Hr 97.4 F-98.8 F 56-68 18-20 110-140/52-78 100-100 GENERAL: AAOx3, NAD HEAD:NC/AT EYES: Mild scleral icterus. PERRL, extraocular movements intact, conjunctiva clear. No ptosis. ENT: moist mucous membranes. NECK: supple, No JVD LUNGS:CTAB , no wheezing or rales. HEART: RRR, S1S2, No M/G/R ABDOMEN: soft, NT, ND, BS(+), no masses or organomegally. EXTREMITIES: 2+ pulses, warm, well-perfused, no edema. NEUROLOGICAL: Cranial nerves II through XII grossly intact. Normal speech, gait not observed. PSYCH: Normal mood, normal affect. SKIN: Warm, dry, normal turgor, no rashes or lesions noted Laboratory Results - last 24 hr 04/10/17 04/11/17 04/11/17 02:31 05:48 15:40 WBC 3.6 RBC Hgb Hct 28.4 L MCV MCH MCHC RDW Plt Count MPV Absolute Lymphs (auto) 1.4 Neutrophils % Lymphocytes % Monocytes % Eosinophils % Basophils % Lymphocytes 39 Nucleated RBCs TNP ESR Sodium Potassium Chloride Carbon Dioxide Anion Gap BUN Creatinine Random Glucose Calcium C-Reactive Protein < 0.3 Folate 829 Folate Hemolysate 235.4 Absolute CD3 Count 1137 % CD3+ Lymphocytes 81.2 Absolute CD4 [place] 336 L % CD4+ Lymphocyte 24.0 L CD4/CD8 Ratio 0.44 L % CD8+ Lymphocyte 55.0 H Absolute CD8 Count 770 04/11/17 04/12/17 04/12/17 15:40 05:45 05:45 WBC 3.5 L RBC 3.14 L Hgb 9.0 L Hct 27.0 L MCV 86.2 MCH 28.7 MCHC 33.3 RDW 15.7 Plt Count 173 MPV 7.9 Absolute Lymphs (auto) Neutrophils % 55.0 Lymphocytes % 32.7 Monocytes % 11.0 H Eosinophils % 1.1 Basophils % 0.2 Lymphocytes Nucleated RBCs ESR 9 Sodium 140 Potassium 5.1 Chloride 116 H Carbon Dioxide 17 L Anion Gap 7 L BUN 33 H Creatinine 1.9 H Random Glucose 104 Calcium 8.7 C-Reactive Protein Folate Folate Hemolysate Absolute CD3 Count % CD3+ Lymphocytes Absolute CD4 [place] % CD4+ Lymphocyte CD4/CD8 Ratio % CD8+ Lymphocyte Absolute CD8 Count Active Medications Generic Name Dose Route Start Last Admin Trade Name Katherine PRN Reason Stop Dose Admin Abacavir Sulfate 300 mg 04/11/17 22:00 04/12/17 09:19 Ziagen - PO 300 mg BID [facility] Administration Amlodipine Besylate 5 mg 04/11/17 10:00 04/12/17 09:18 Norvasc - PO 5 mg DAILY [facility] Administration Aspirin 81 mg 04/10/17 10:00 04/12/17 09:18 Asa - PO 81 mg DAILY [facility] Administration Atorvastatin Calcium 40 mg 04/10/17 22:00 04/11/17 21:30 Lipitor - PO 40 mg HS [facility] Administration Carvedilol 12.5 mg 04/10/17 22:00 04/12/17 09:18 Coreg - PO 12.5 mg BID [facility] Administration Dextrose/Sodium Chloride 1,000 mls @ 42 mls/hr 04/10/17 16:45 04/11/17 21:23 D5-Ns - IV 42 mls/hr ASDIR [facility] Administration Lamivudine 150 mg 04/10/17 10:00 04/12/17 09:18 Epivir - PO 150 mg DAILY [facility] Administration Megestrol Acetate 800 mg 04/10/17 13:15 04/12/17 10:36 Megace Oral Suspension - PO 800 mg DAILY [facility] Administration Atazanavir Sulfate 1 tab 04/10/17 10:00 04/12/17 09:18 300 Mg/Cobicistat PO 1 tab 150mg (Evotaz) -Pt's DAILY [facility] Administration Own Sodium Bicarbonate 650 mg 04/10/17 22:00 04/12/17 13:04 Sodium Bicarbonate - PO 650 mg TID [facility] Administration IMAGING: * EXAM#: TYPE/EXAM: RESULT: [id number] US/KIDNEY / RENAL US Bilateral renal ultrasound: HISTORY: Elevated creatinine. Ultrasound of the kidneys is performed bilaterally. Right kidney measures 12.2 cm in length and demonstrates an upper to mid pole cyst measuring up to 6 cm in size. Left kidney measures 11.3 cm in length with a complex cyst in the lower pole measuring up to 1.7 cm in size. The kidneys appear mildly echogenic raising possibility of medical renal disease. Flow is demonstrated bilaterally with color Doppler. IMPRESSION: Mildly echogenic kidneys raising possibility of medical renal disease. Large right upper pole cyst. Complex cyst in the lower pole of the left kidney and recommend follow-up. Reported By: Annie Henriquez MD 04/11/17 0800 ASSESSMENT/PLAN: 71 y/o male with a past medical history of HTN, HIV, DM, Dementia who presents to the ED with generalized weakness, unsteady gait x 2 weeks. Admitted for hyperkalemia and TYRESE. Problem List - Problems (1) TYRESE (acute kidney injury) Assessment/Plan: * Kidney function improving with IVF * continue PO bicarb. * Kidney and bladder US shows echogenic kidneys complex cyst in lower pole will need further w/u as outpatient. * Avoid nephrotoxins * repeat BMP in AM * Given his PMHx of HIV and HAART therapy consider FSGN vs. crystal formation will need outpatient W/U * Will continue to follow. (2) Hyperkalemia Assessment/Plan: * resolved * will continue to monitor (3) HIV disease Assessment/Plan: * CD4 and Viral load pending. * Abacavir Sulfate (Ziagen -) 300 mg PO BID * Lamivudine (Epivir -) 150 mg PO DAILY * Atazanavir Sulfate 300 Mg/Cobicistat 150mg (Evotaz) -Pt's Own 1 tab PO DAILY (4) HTN (hypertension) Assessment/Plan: * Amlodipine Besylate (Norvasc -) 5 mg PO DAILY * Aspirin (Asa -) 81 mg PO DAILY * Atorvastatin Calcium (Lipitor -) 40 mg PO HS * Carvedilol (Coreg -) 12.5 mg PO BID [facility] (5) DVT prophylaxis Visit type - Emergency Visit Emergency Visit: Yes ED Registration Date: 04/10/17 Care time: The patient presented to the Emergency Department on the above date and was hospitalized for further evaluation of their emergent condition. - New Patient This patient is new to me today: No - Critical Care Critical Care patient: No
--- NOTE | 2017-04-12 17:43 | PN ---
Teaching Attending Note Name of Resident: Jason Seymour (Nephrology) ATTENDING PHYSICIAN STATEMENT I saw and evaluated the patient. I reviewed the resident's note and discussed the case with the resident. I agree with the resident's findings and plan as documented. Current Medications Generic Name Dose Route Start Last Admin Trade Name Katherine PRN Reason Stop Dose Admin Abacavir Sulfate 300 mg 04/11/17 22:00 04/12/17 09:19 Ziagen - PO 300 mg BID [facility] Administration Amlodipine Besylate 5 mg 04/11/17 10:00 04/12/17 09:18 Norvasc - PO 5 mg DAILY [facility] Administration Aspirin 81 mg 04/10/17 10:00 04/12/17 09:18 Asa - PO 81 mg DAILY [facility] Administration Atorvastatin Calcium 40 mg 04/10/17 22:00 04/11/17 21:30 Lipitor - PO 40 mg HS [facility] Administration Carvedilol 12.5 mg 04/10/17 22:00 04/12/17 09:18 Coreg - PO 12.5 mg BID [facility] Administration Dextrose/Sodium Chloride 1,000 mls @ 42 mls/hr 04/10/17 16:45 04/11/17 21:23 D5-Ns - IV 42 mls/hr ASDIR [facility] Administration Lamivudine 150 mg 04/10/17 10:00 04/12/17 09:18 Epivir - PO 150 mg DAILY [facility] Administration Megestrol Acetate 800 mg 04/10/17 13:15 04/12/17 10:36 Megace Oral Suspension - PO 800 mg DAILY [facility] Administration Atazanavir Sulfate 1 tab 04/10/17 10:00 04/12/17 09:18 300 Mg/Cobicistat PO 1 tab 150mg (Evotaz) -Pt's DAILY [facility] Administration Own Sodium Bicarbonate 650 mg 04/10/17 22:00 04/12/17 13:04 Sodium Bicarbonate - PO 650 mg TID [facility]ONAL Administration cardio s1s2 reg pulm clear Gi soft ext neg edema neuro awake Impression 1. TYRESE with likely CKD - unclear baseline creatinine 2. HIV 3. DM 4. HTN 5. hx dementia 6. decreased PO intake 7. hyperlipidemia 8. complex renal cyst Plan - renal function is improving with fluids - his PO intake is improving as well - will change fluids to 1/2 ns - cont po bicarb - full renal workup as outpt - complex cyst will need further imaging/urology follow up - will follow
[2017-04-12] MEDS ORDERED: SODIUM CHLORIDE 0.45% 1,000 ML IV SCH (17:45)
--- NOTE | 2017-04-12 19:23 | PN ---
Physical Exam: SUBJECTIVE: Patient seen and examined OBJECTIVE: Vital Signs Period Temp Pulse Resp BP Sys/Latham Pulse Ox Last 24 Hr 98.5 F-98.8 F 58-68 18-20 100-140/52-78 100-100 GENERAL: The patient is awake, alert, and fully oriented, in no acute distress. HEAD: Normal with no signs of trauma. EYES: PERRL, extraocular movements intact, icteric sclera, conjunctiva clear. No ptosis. ENT: Ears normal, nares patent, oropharynx clear without exudates, moist mucous membranes. NECK: Trachea midline, full range of motion, supple. LUNGS: Breath sounds equal, clear to auscultation bilaterally, no wheezes, no crackles, no accessory muscle use. HEART: Regular rate and rhythm, S1, S2 without murmur, rub or gallop. ABDOMEN: Soft, nontender, nondistended, normoactive bowel sounds, no guarding, no rebound, no hepatosplenomegaly, no masses. EXTREMITIES: 2+ pulses, warm, well-perfused, no edema. NEUROLOGICAL: Cranial nerves II through XII grossly intact. Normal speech, gait not observed. PSYCH: Normal mood, normal affect. SKIN: Warm, dry, normal turgor, no rashes or lesions noted Laboratory Results - last 24 hr 04/10/17 04/11/17 04/11/17 02:31 05:48 15:40 WBC 3.6 RBC Hgb Hct 28.4 L MCV MCH MCHC RDW Plt Count MPV Absolute Lymphs (auto) 1.4 Neutrophils % Lymphocytes % Monocytes % Eosinophils % Basophils % Lymphocytes 39 Nucleated RBCs TNP ESR 9 Sodium Potassium Chloride Carbon Dioxide Anion Gap BUN Creatinine Random Glucose Calcium Folate 829 Folate Hemolysate 235.4 Absolute CD3 Count 1137 % CD3+ Lymphocytes 81.2 Absolute CD4 [place] 336 L % CD4+ Lymphocyte 24.0 L CD4/CD8 Ratio 0.44 L % CD8+ Lymphocyte 55.0 H Absolute CD8 Count 770 04/12/17 04/12/17 05:45 05:45 WBC 3.5 L RBC 3.14 L Hgb 9.0 L Hct 27.0 L MCV 86.2 MCH 28.7 MCHC 33.3 RDW 15.7 Plt Count 173 MPV 7.9 Absolute Lymphs (auto) Neutrophils % 55.0 Lymphocytes % 32.7 Monocytes % 11.0 H Eosinophils % 1.1 Basophils % 0.2 Lymphocytes Nucleated RBCs ESR Sodium 140 Potassium 5.1 Chloride 116 H Carbon Dioxide 17 L Anion Gap 7 L BUN 33 H Creatinine 1.9 H Random Glucose 104 Calcium 8.7 Folate Folate Hemolysate Absolute CD3 Count % CD3+ Lymphocytes Absolute CD4 [place] % CD4+ Lymphocyte CD4/CD8 Ratio % CD8+ Lymphocyte Absolute CD8 Count Active Medications Generic Name Dose Route Start Last Admin Trade Name Freq PRN Reason Stop Dose Admin Abacavir Sulfate 300 mg 04/11/17 22:00 04/12/17 09:19 Ziagen - PO 300 mg BID RONAL Administration Amlodipine Besylate 5 mg 04/11/17 10:00 04/12/17 09:18 Norvasc - PO 5 mg DAILY RONAL Administration Aspirin 81 mg 04/10/17 10:00 04/12/17 09:18 Asa - PO 81 mg DAILY RONAL Administration Atorvastatin Calcium 40 mg 04/10/17 22:00 04/11/17 21:30 Lipitor - PO 40 mg HS RONAL Administration Carvedilol 12.5 mg 04/10/17 22:00 04/12/17 09:18 Coreg - PO 12.5 mg BID RONAL Administration Sodium Chloride 1,000 mls @ 42 mls/hr 04/12/17 17:45 04/12/17 17:49 1/2 Normal Saline IV 42 mls/hr ASDIR RONAL Administration Lamivudine 150 mg 04/10/17 10:00 04/12/17 09:18 Epivir - PO 150 mg DAILY RONAL Administration Megestrol Acetate 800 mg 04/10/17 13:15 04/12/17 10:36 Megace Oral Suspension - PO 800 mg DAILY [facility]ONAL Administration Atazanavir Sulfate 1 tab 04/10/17 10:00 04/12/17 09:18 300 Mg/Cobicistat PO 1 tab 150mg (Evotaz) -Pt's DAILY RONAL Administration Own Sodium Bicarbonate 650 mg 04/10/17 22:00 04/12/17 13:04 Sodium Bicarbonate - PO 650 mg TID RONAL Administration Imaging 04/10 CXR: No active pulmonary disease 04/10 CT head: No acute intracranial process 04/10 US Renal: Mildly echogenic kidneys raising possibility of medical renal disease 04/11 Echo: LV normal; RV normal; moderate MR; moderate TR; cannot exclude vegetation on the mitral valve or on the aortic valve ASSESSMENT/PLAN 71 year-old male with a history of HTN, DM, HIV on HAART therapy, admitted from the ED with generalized weakness, fatigue, poor appetite, and unsteady gait. Acute kidney injury --may have underlying CKD, baseline creatinine unknown --improving with IV fluids (Cr 1.9<--2.1<--3.0) --continue to hold Lisinopril --continue PO bicarb --renal following Syncopal episodes --Suspect secondary to poor oral intake v. low volume state --Trops neg x 3 --No events on telemetry -Follow up Lyme (heart block) pending HIV -Unknown CD4; patient has not seen MD for >1yr, but claims compliance with HAART since 1998 -ID following -continue HAART r/o endocarditis --04/11 echo reviewed, per Dr. Calix, cannot r/o vegetation on the mitral or aortic valves --IVONE ordered --Dr. Calix following Hyperbilirubinemia --Total bili 4.3 on admission, now 3.5 --icteric sclera on exam --Will get US liver DM --Novolog sliding scale coverage Cognitive impairment v. dementia --CT head negative for acute process --MRI brain shows chronic infarcts --RPR negative --follow up TSH, B12, folate --seen and evaluated by neuro Hyperthyroidism --TSH very low Hypertension --BP presently well-controlled --continue carvedilol, amlodipine --hold lisinopril Hyperlipidemia --continue lipitor FEN Fluids: 1/2NS@42ml/hr Electrolytes: replete as indicated Nutrition: diabetic, low sodium DVT Prophylaxis: subq heparin, oob, ambulation PT evaluation Daily PT Dispo: continues to require inpatient care. Full Code. Visit type - Emergency Visit Emergency Visit: Yes ED Registration Date: 04/10/17 Care time: The patient presented to the Emergency Department on the above date and was hospitalized for further evaluation of their emergent condition. - New Patient This patient is new to me today: No - Critical Care Critical Care patient: No
--- NOTE | 2017-04-12 20:39 | PN ---
Teaching Attending Note Name of Resident: Eli Solis ATTENDING PHYSICIAN STATEMENT I saw and evaluated the patient. I reviewed the resident's note and discussed the case with the resident. I agree with the resident's findings and plan as documented. SUBJECTIVE: Awake, alert No focal complaint No chest pain/ dyspnea No fever/ chills OBJECTIVE: Cor S1S2 Lungs clear Abdomen soft, non-tender ASSESSMENT AND PLAN: Syncope AIDS Workup in progress Continue ART
[2017-04-12] MEDS: ATORVASTATIN CA 40 MG TABLET (FP) PO SCH (21:20)
[2017-04-12] MEDS: HEPARIN NA (PORCINE) 5,000 UNITS/ML 1ML VIAL SQ SCH (21:20)
[2017-04-12] MEDS: INSULIN (NOVOLOG) ASPART 100 UNITS/ML 10ML VIAL SQ SCH (22:30)
[2017-04-13] MEDS: INSULIN (NOVOLOG) ASPART 100 UNITS/ML 10ML VIAL SQ SCH ×4 (06:19→22:05)
[2017-04-13] MEDS: SODIUM BICARBONATE 650 MG TABLET PO SCH ×3 (06:21→22:05)
[2017-04-13 07:16] LABS: BASOPHIL 0.3 % (0-2.0); EOSINOPHIL 1.1 % (0-4.5); MCH 29.2 pg (25.7-33.7); MCHC 33.8 g/dl (32.0-35.9); MEAN CELL VOLUME 86.4 fl (80-96); NEUTROPHILS 59.3 % (42.8-82.8); PLATELET COUNT 173 K/MM3 (134-434); RDW 15.9 % (11.9-15.9); WHITE BLOOD COUNT 3.5 K/mm3 (4.0-10.0)
--- NOTE | 2017-04-13 08:25 | PN ---
Physical Exam: SUBJECTIVE: Patient seen and examined at bedside. Voices no complaints. Feels appetite is better, has felt stronger, is walking. OBJECTIVE: Vital Signs Period Temp Pulse Resp BP Sys/Latham Pulse Ox Last 24 Hr 98.2 F-99.1 F 58-70 18-20 100-128/53-76 100-100 GENERAL: The patient is awake, alert, and fully oriented, in no acute distress. HEAD: Normal with no signs of trauma. EYES: PERRL, extraocular movements intact, icteric sclera, conjunctiva clear. No ptosis. ENT: Ears normal, nares patent, oropharynx clear without exudates, moist mucous membranes. NECK: Trachea midline, full range of motion, supple. LUNGS: Breath sounds equal, clear to auscultation bilaterally, no wheezes, no crackles, no accessory muscle use. HEART: Regular rate and rhythm, S1, S2 without murmur, rub or gallop. ABDOMEN: Soft, nontender, nondistended, normoactive bowel sounds, no guarding, no rebound, no hepatosplenomegaly, no masses. EXTREMITIES: 2+ pulses, warm, well-perfused, no edema. NEUROLOGICAL: Cranial nerves II through XII grossly intact. Normal speech, gait not observed. Laboratory Results - last 24 hr 04/11/17 04/11/17 04/11/17 05:48 05:48 05:48 WBC RBC Hgb Hct 28.4 L MCV MCH MCHC RDW Plt Count MPV Neutrophils % Lymphocytes % Monocytes % Eosinophils % Basophils % Sodium Potassium Chloride Carbon Dioxide Anion Gap BUN Creatinine POC Glucometer Random Glucose Calcium Folate 829 Folate Hemolysate 235.4 JAZLYN Screen Negative Lyme Screen IgG & IgM <0.91 04/12/17 04/12/17 04/13/17 05:45 22:26 05:35 WBC 3.5 L RBC 2.96 L Hgb 8.7 L Hct 25.6 L MCV 86.4 MCH 29.2 MCHC 33.8 RDW 15.9 Plt Count 173 MPV 8.0 Neutrophils % 59.3 Lymphocytes % 30.8 Monocytes % 8.5 Eosinophils % 1.1 Basophils % 0.3 Sodium 140 Potassium 5.1 Chloride 116 H Carbon Dioxide 17 L Anion Gap 7 L BUN 33 H Creatinine 1.9 H POC Glucometer 157 Random Glucose 104 Calcium 8.7 Folate Folate Hemolysate JAZLYN Screen Lyme Screen IgG & IgM 04/13/17 05:58 WBC RBC Hgb Hct MCV MCH MCHC RDW Plt Count MPV Neutrophils % Lymphocytes % Monocytes % Eosinophils % Basophils % Sodium Potassium Chloride Carbon Dioxide Anion Gap BUN Creatinine POC Glucometer 145 Random Glucose Calcium Folate Folate Hemolysate JAZLYN Screen Lyme Screen IgG & IgM Active Medications Generic Name Dose Route Start Last Admin Trade Name Katherine PRN Reason Stop Dose Admin Abacavir Sulfate 300 mg 04/11/17 22:00 04/12/17 23:25 Ziagen - PO 300 mg BID RONAL Administration Amlodipine Besylate 5 mg 04/11/17 10:00 04/12/17 09:18 Norvasc - PO 5 mg DAILY RONAL Administration Aspirin 81 mg 04/10/17 10:00 04/12/17 09:18 Asa - PO 81 mg DAILY RONAL Administration Atorvastatin Calcium 40 mg 04/10/17 22:00 04/12/17 21:20 Lipitor - PO 40 mg HS RONAL Administration Carvedilol 12.5 mg 04/10/17 22:00 04/12/17 21:20 Coreg - PO 12.5 mg BID RONAL Administration Heparin Sodium (Porcine) 5,000 unit 04/12/17 22:00 04/12/17 21:20 Heparin - SQ 5,000 unit BID RONAL Administration Sodium Chloride 1,000 mls @ 42 mls/hr 04/12/17 17:45 04/12/17 17:49 1/2 Normal Saline IV 42 mls/hr ASDIR RONAL Administration Insulin Aspart 0 units 04/12/17 22:00 04/13/17 06:19 Novolog Vial SQ Not Given ACHS [facility] Protocol Lamivudine 150 mg 04/10/17 10:00 04/12/17 09:18 Epivir - PO 150 mg DAILY RONAL Administration Megestrol Acetate 800 mg 04/10/17 13:15 04/12/17 10:36 Megace Oral Suspension - PO 800 mg DAILY RONAL Administration Multivitamins/Minerals/Vitamin C 1 tab 04/13/17 10:00 Tab-A-Vit - PO DAILY RONAL Atazanavir Sulfate 1 tab 04/10/17 10:00 04/12/17 09:18 300 Mg/Cobicistat PO 1 tab 150mg (Evotaz) -Pt's DAILY RONAL Administration Own Sodium Bicarbonate 650 mg 04/10/17 22:00 04/13/17 06:21 Sodium Bicarbonate - PO 650 mg TID RONAL Administration Imaging 04/10 CXR: No active pulmonary disease 04/10 CT head: No acute intracranial process 04/10 US Renal: Mildly echogenic kidneys raising possibility of medical renal disease 04/11 Echo: LV normal; RV normal; moderate MR; moderate TR; cannot exclude vegetation on the mitral valve or on the aortic valve ASSESSMENT/PLAN 71 year-old male with a history of HTN, DM, HIV on HAART therapy, admitted from the ED with generalized weakness, fatigue, poor appetite, and unsteady gait. Acute kidney injury --may have underlying CKD, Cr 3.0-->2.0, possibly baseline --continue to hold Lisinopril --continue PO bicarb --continue IV fluids --renal following Syncopal episodes --Suspect secondary to poor oral intake v. low volume state --Trops neg x 3 --No events on telemetry --Lyme (heart block) negative HIV --CD4 336 --continue HAART --ID following r/o endocarditis --04/[address] Calix, cannot r/o vegetation on the mitral or aortic valves --Dr. Calix following; also need ID input on endocarditis issue Hyperbilirubinemia --Total bili 4.3 on admission, now 2.7 --icteric sclera on exam --US shows enlarged fatty liver --likely secondary to Reyataz Left upper extremity swelling --US duplex ordered DM --Novolog sliding scale coverage Cognitive impairment v. dementia --CT head negative for acute process --MRI brain shows chronic infarcts --RPR negative --B12, folate wnl --TSH low, free T4 ordered for am --seen and evaluated by neuro Hypertension --BP presently well-controlled --continue carvedilol, amlodipine --hold lisinopril until renal function stabilizes Hyperlipidemia --continue lipitor FEN Fluids: 1/2NS@80ml/hr Electrolytes: replete as indicated Nutrition: diabetic, low sodium DVT Prophylaxis: subq heparin, oob, ambulation PT evaluation Daily PT Dispo: continues to require inpatient care. Full Code. Visit type - Emergency Visit Emergency Visit: Yes ED Registration Date: 04/10/17 Care time: The patient presented to the Emergency Department on the above date and was hospitalized for further evaluation of their emergent condition. - New Patient This patient is new to me today: No - Critical Care Critical Care patient: No
[2017-04-13 09:49] LABS: ALBUMIN 2.6 g/dl (3.4-5.0); ALK PHOS 109 U/L (45-117); ANION GAP 7 (8-16); BILIRUBIN,DIRECT 0.2 mg/dL (0.0-0.2); BILIRUBIN,TOTAL 2.7 mg/dL (0.2-1.0); CALCIUM 8.5 mg/dL (8.5-10.1); CO2 18 mmol/L (21-32); GLUCOSE,RANDOM 141 mg/dL (74-106); MAGNESIUM 1.9 mg/dL (1.8-2.4); SGOT/AST 15 U/L (15-37); SGPT/ALT 14 U/L (12-78); TOT PROT 5.6 g/dl (6.4-8.2)
[2017-04-13] MEDS: ASPIRIN 81 MG CHEWABLE TABLETS PO SCH (10:14)
[2017-04-13] MEDS: CARVEDILOL 12.5 MG TABLET (FP) PO SCH ×2 (10:14→22:05)
[2017-04-13] MEDS: HEPARIN NA (PORCINE) 5,000 UNITS/ML 1ML VIAL SQ SCH ×2 (10:14→22:04)
[2017-04-13] MEDS: MULTIVITAMINS (DAILY MVI) TABLET (FP) PO SCH (10:14)
[2017-04-13] MEDS: amLODIPine BESYLATE 5 MG TABLET (FP) PO SCH (10:14)
[2017-04-13] MEDS: lamiVUDine 150 MG TABLET PO SCH (10:15)
[2017-04-13] MEDS: MEGESTROL ACETATE 400 MG/10 ML UNIT DOSE CUP PO SCH (10:15)
[2017-04-13] MEDS: ABACAVIR SULFATE 300 MG TABLET PO SCH ×2 (10:16→22:05)
[2017-04-13] MEDS: COBICISTAT 150 MG PO SCH (10:25)
[2017-04-13] MEDS: ATAZANAVIR SULFATE PO SCH (10:25)
--- NOTE | 2017-04-13 11:08 | PN ---
Progress Note, Physician Chief Complaint: Pt alert; denies chest pain, dyspnea. History of Present Illness: The patient is a 71 year old black male with significant past medical history of HIV, hypertension, and diabetes who presents to the ED for 2 weeks of generalized weakness and poor balance. Patient states he is compliant with his treatments for all of his past medical h/o, but has not been seen by a doctor in a year. Patient is from [place] and his son, who lives in [place], decided to bring him here to make sure patient gets proper care. Patient reports decreased appetite for the past 2 months. Denies abdominal pain, nausea, vomiting, or diarrhea. He also has complaints of weight loss, night sweats, and difficulty sleeping. The patient denies fever, chills, cough, SOB, chest pain, and palpitations. - Current Medication List Current Medications: Active Medications Abacavir Sulfate (Ziagen -) 300 mg PO BID [facility] Last Admin: 04/13/17 10:16 Dose: 300 mg Amlodipine Besylate (Norvasc -) 5 mg PO DAILY [facility] Last Admin: 04/13/17 10:14 Dose: 5 mg Aspirin (Asa -) 81 mg PO DAILY [facility] Last Admin: 04/13/17 10:14 Dose: 81 mg Atorvastatin Calcium (Lipitor -) 40 mg PO HS [facility] Last Admin: 04/12/17 21:20 Dose: 40 mg Carvedilol (Coreg -) 12.5 mg PO BID [facility] Last Admin: 04/13/17 10:14 Dose: 12.5 mg Heparin Sodium (Porcine) (Heparin -) 5,000 unit SQ BID [facility] Last Admin: 04/13/17 10:14 Dose: 5,000 unit Sodium Chloride (1/2 Normal Saline) 1,000 mls @ 42 mls/hr IV ASDIR [facility] Last Admin: 04/12/17 17:49 Dose: 42 mls/hr Insulin Aspart (Novolog Vial) 0 units SQ ACHS [facility] PRN Reason: Protocol Last Admin: 04/13/17 06:19 Dose: Not Given Lamivudine (Epivir -) 150 mg PO DAILY [facility] Last Admin: 04/13/17 10:15 Dose: 150 mg Megestrol Acetate (Megace Oral Suspension -) 800 mg PO DAILY [facility] Last Admin: 04/13/17 10:15 Dose: 800 mg Multivitamins/Minerals/Vitamin C (Tab-A-Vit -) 1 tab PO DAILY [facility] Last Admin: 04/13/17 10:14 Dose: 1 tab Atazanavir Sulfate 300 Mg/Cobicistat 150mg (Evotaz) -Pt's Own 1 tab PO DAILY [facility] Last Admin: 04/13/17 10:25 Dose: 1 tab Sodium Bicarbonate (Sodium Bicarbonate -) 650 mg PO TID [facility] Last Admin: 04/13/17 06:21 Dose: 650 mg - Objective Vital Signs: Vital Signs Temperature 98.8 F 04/13/17 06:00 Pulse Rate 69 04/13/17 06:00 Respiratory Rate 20 04/13/17 06:00 Blood Pressure 128/65 04/13/17 06:00 O2 Sat by Pulse Oximetry (%) 100 04/12/17 21:00 Constitutional: Yes: No Distress Eyes: Yes: WNL HENT: Yes: WNL, Tonsillar Exudate Cardiovascular: Yes: Regular Rate and Rhythm, Murmur Respiratory: Yes: Regular Gastrointestinal: Yes: Soft ...Rectal Exam: Yes: Deferred Genitourinary: No: Anuria Musculoskeletal: Yes: Muscle Weakness Extremities: Yes: WNL Edema: RUE: Trace Peripheral Pulses WNL: Yes Neurological: Yes: Alert, Oriented Psychiatric: Yes: Alert, Oriented Labs: CBC, BMP 04/13/17 05:35 04/13/17 05:35 INR, PTT INR 1.10 (0.82-1.09) 04/09/17 23:35 - ....Imaging EKG: Image Reviewed (sinus bradycardia; 1st degree AVB; nonspecific T wave changes) Problem List - Problems (1) Generalized weakness Assessment/Plan: fluids; increase PO intake. Physical rehabilitation. Code(s): R53.1 - WEAKNESS (2) HIV disease Code(s): B20 - HUMAN IMMUNODEFICIENCY VIRUS [HIV] DISEASE (3) HTN (hypertension) Assessment/Plan: on carvedilol and amlodipine. Await ECHO for LVEF, valve status, chamber sizes. Code(s): I10 - ESSENTIAL (PRIMARY) HYPERTENSION Qualifiers: Hypertension type: essential hypertension Qualified Code(s): I10 - Essential (primary) hypertension (4) Renal insufficiency Code(s): N28.9 - DISORDER OF KIDNEY AND URETER, UNSPECIFIED
--- NOTE | 2017-04-13 11:15 | PN ---
Progress Note, Physician History of Present Illness: Saw patient this morning No new complaints, feels stronger, has been able to eat better, no longer feels unstable while walking Talking about going home Lyme titer and RPR negative - Current Medication List Current Medications: Active Medications Abacavir Sulfate (Ziagen -) 300 mg PO BID [facility] Last Admin: 04/13/17 10:16 Dose: 300 mg Amlodipine Besylate (Norvasc -) 5 mg PO DAILY [facility] Last Admin: 04/13/17 10:14 Dose: 5 mg Aspirin (Asa -) 81 mg PO DAILY [facility] Last Admin: 04/13/17 10:14 Dose: 81 mg Atorvastatin Calcium (Lipitor -) 40 mg PO HS [facility] Last Admin: 04/12/17 21:20 Dose: 40 mg Carvedilol (Coreg -) 12.5 mg PO BID [facility] Last Admin: 04/13/17 10:14 Dose: 12.5 mg Heparin Sodium (Porcine) (Heparin -) 5,000 unit SQ BID [facility] Last Admin: 04/13/17 10:14 Dose: 5,000 unit Sodium Chloride (1/2 Normal Saline) 1,000 mls @ 42 mls/hr IV ASDIR [facility] Last Admin: 04/12/17 17:49 Dose: 42 mls/hr Insulin Aspart (Novolog Vial) 0 units SQ ACHS [facility] PRN Reason: Protocol Last Admin: 04/13/17 06:19 Dose: Not Given Lamivudine (Epivir -) 150 mg PO DAILY [facility] Last Admin: 04/13/17 10:15 Dose: 150 mg Megestrol Acetate (Megace Oral Suspension -) 800 mg PO DAILY [facility] Last Admin: 04/13/17 10:15 Dose: 800 mg Multivitamins/Minerals/Vitamin C (Tab-A-Vit -) 1 tab PO DAILY [facility] Last Admin: 04/13/17 10:14 Dose: 1 tab Atazanavir Sulfate 300 Mg/Cobicistat 150mg (Evotaz) -Pt's Own 1 tab PO DAILY [facility] Last Admin: 04/13/17 10:25 Dose: 1 tab Sodium Bicarbonate (Sodium Bicarbonate -) 650 mg PO TID [facility] Last Admin: 04/13/17 06:21 Dose: 650 mg - Objective Vital Signs: Vital Signs Temperature 98.8 F 04/13/17 06:00 Pulse Rate 69 04/13/17 06:00 Respiratory Rate 20 04/13/17 06:00 Blood Pressure 128/65 04/13/17 06:00 O2 Sat by Pulse Oximetry (%) 100 04/12/17 21:00 Constitutional: Yes: No Distress, Calm Eyes: Yes: Sclera Icterus HENT: Yes: Atraumatic. No: Drooling, Epistaxis, Hoarseness, Nasal Congestion, Pharyngeal Erythema, Rhinnorhea, Thrush, Tonsillar Exudate Neck: Yes: Supple. No: Rigid, Tenderness Cardiovascular: Yes: Murmur, S1, S2 Respiratory: No: On BiPap, On Nasal O2, Poor Air Entry, Rales, Rhonchi Gastrointestinal: Yes: Soft Genitourinary: No: Rodas Present Edema: No Neurological: Yes: Alert, Oriented. No: Aphasia, Asterixis, Ataxia, Confusion Psychiatric: Yes: Alert, Oriented Labs: CBC, BMP 04/13/17 05:35 04/13/17 05:35 INR, PTT INR 1.10 (0.82-1.09) 04/09/17 23:35 Problem List - Problems (1) HIV disease Assessment/Plan: Compliant on HAART CD4 count >300 Negative lyme or RPR titer No longer having unstable gait or generalized weakness No longer bradycardic Background valvular lesions Plan: Continue HAART Code(s): B20 - HUMAN IMMUNODEFICIENCY VIRUS [HIV] DISEASE (2) Dementia Assessment/Plan: Brain MRI also shows age related involution CD4 count above 300 Lyme titre and RPR pending HIV Ab test preliminary positive Likely age related Code(s): F03.90 - UNSPECIFIED DEMENTIA WITHOUT BEHAVIORAL DISTURBANCE Qualifiers: Dementia type: unspecified type Dementia behavioral disturbance: without behavioral disturbance Qualified Code(s): F03.90 - Unspecified dementia without behavioral disturbance Impression/Plan Impression/Plan: Improved, continue HAART Visit type - Emergency Visit Emergency Visit: No - New Patient This patient is new to me today: No - Critical Care Critical Care patient: No - Discharge Referral Referred to [facility] Med P.C.: No
--- NOTE | 2017-04-13 11:35 | PN ---
Progress Note, Physician Chief Complaint: P OOB, walking in room. Denies chest pain, dizziness, dyspnea. He says, "I'm never sick". History of Present Illness: The patient is a 71 year old black male with significant past medical history of HIV, hypertension, and diabetes who presents to the ED for 2 weeks of generalized weakness and poor balance. Patient states he is compliant with his treatments for all of his past medical h/o, but has not been seen by a doctor in a year. Patient is from [place] and his son, who lives in [place], decided to bring him here to make sure patient gets proper care. Patient reports decreased appetite for the past 2 months. Denies abdominal pain, nausea, vomiting, or diarrhea. He also has complaints of weight loss, night sweats, and difficulty sleeping. The patient denies fever, chills, cough, SOB, chest pain, and palpitations. - Current Medication List Current Medications: Active Medications Abacavir Sulfate (Ziagen -) 300 mg PO BID [facility] Last Admin: 04/13/17 10:16 Dose: 300 mg Amlodipine Besylate (Norvasc -) 5 mg PO DAILY [facility] Last Admin: 04/13/17 10:14 Dose: 5 mg Aspirin (Asa -) 81 mg PO DAILY [facility] Last Admin: 04/13/17 10:14 Dose: 81 mg Atorvastatin Calcium (Lipitor -) 40 mg PO HS [facility] Last Admin: 04/12/17 21:20 Dose: 40 mg Carvedilol (Coreg -) 12.5 mg PO BID [facility] Last Admin: 04/13/17 10:14 Dose: 12.5 mg Heparin Sodium (Porcine) (Heparin -) 5,000 unit SQ BID [facility] Last Admin: 04/13/17 10:14 Dose: 5,000 unit Sodium Chloride (1/2 Normal Saline) 1,000 mls @ 42 mls/hr IV ASDIR [facility] Last Admin: 04/12/17 17:49 Dose: 42 mls/hr Insulin Aspart (Novolog Vial) 0 units SQ ACHS [facility] PRN Reason: Protocol Last Admin: 04/13/17 06:19 Dose: Not Given Lamivudine (Epivir -) 150 mg PO DAILY [facility] Last Admin: 04/13/17 10:15 Dose: 150 mg Megestrol Acetate (Megace Oral Suspension -) 800 mg PO DAILY [facility] Last Admin: 04/13/17 10:15 Dose: 800 mg Multivitamins/Minerals/Vitamin C (Tab-A-Vit -) 1 tab PO DAILY [facility] Last Admin: 04/13/17 10:14 Dose: 1 tab Atazanavir Sulfate 300 Mg/Cobicistat 150mg (Evotaz) -Pt's Own 1 tab PO DAILY [facility] Last Admin: 04/13/17 10:25 Dose: 1 tab Sodium Bicarbonate (Sodium Bicarbonate -) 650 mg PO TID [facility] Last Admin: 04/13/17 06:21 Dose: 650 mg - Objective Vital Signs: Vital Signs Temperature 98.8 F 04/13/17 06:00 Pulse Rate 69 04/13/17 06:00 Respiratory Rate 20 04/13/17 06:00 Blood Pressure 128/65 04/13/17 06:00 O2 Sat by Pulse Oximetry (%) 100 04/12/17 21:00 Constitutional: Yes: No Distress Eyes: Yes: WNL HENT: Yes: WNL Neck: Yes: WNL Cardiovascular: Yes: Bradycardia Respiratory: Yes: Regular Gastrointestinal: Yes: Soft ...Rectal Exam: Yes: Deferred Genitourinary: No: Anuria Musculoskeletal: Yes: Muscle Weakness Extremities: Yes: Cool Edema: No Peripheral Pulses WNL: Yes Neurological: Yes: Alert, Oriented Psychiatric: Yes: Other Labs: CBC, BMP 04/13/17 05:35 04/13/17 05:35 INR, PTT INR 1.10 (0.82-1.09) 04/09/17 23:35 - ....Imaging Ultrasound: Report Reviewed (mild thrombophlebitis; no DVT) Problem List - Problems (1) Generalized weakness Assessment/Plan: hx syncope. F/u orthostatic vital signs. fluids; increase PO intake. Physical rehabilitation. Code(s): R53.1 - WEAKNESS (2) HIV disease Assessment/Plan: f/u with ID. Code(s): B20 - HUMAN IMMUNODEFICIENCY VIRUS [HIV] DISEASE (3) HTN (hypertension) Assessment/Plan: on carvedilol and amlodipine. ECHO 04/11/17: normal LVEF; moderate mitral valve thickening: descrete Aortic valve nodule; cannot r/o vegetations of mitral and/or aortic valves; moderate MR Pt is afebrile; leukopenic and anemic Blood cultures are negative. Code(s): I10 - ESSENTIAL (PRIMARY) HYPERTENSION Qualifiers: Hypertension type: essential hypertension Qualified Code(s): I10 - Essential (primary) hypertension (4) Renal insufficiency Code(s): N28.9 - DISORDER OF KIDNEY AND URETER, UNSPECIFIED (5) Hyperkalemia Assessment/Plan: kayexalate if K remain elevated on repeat blood test. Code(s): E87.5 - HYPERKALEMIA (6) Fatty liver Code(s): K76.0 - FATTY (CHANGE OF) LIVER, NOT ELSEWHERE CLASSIFIED
--- NOTE | 2017-04-13 11:52 | PN ---
Teaching Attending Note Name of Resident: Eli Solis ATTENDING PHYSICIAN STATEMENT I saw and evaluated the patient. I reviewed the resident's note and discussed the case with the resident. I agree with the resident's findings and plan as documented. SUBJECTIVE:Awake, alert No complaints offered No chest pain/ dyspnea No fever/ chills OBJECTIVE: Awake, alert NAD Cor S1S2 Lungs clear Abdomen soft, non tender no edema ASSESSMENT AND PLAN: Syncope HIV+ Hyperbilirubinemia secondary to Reyataz Continue ART Outpatient follow up for HIV Pt denies history of opportunistic infection or CD4 < 200 ( Does not meet criteria for AIDS diagnosis)
--- NOTE | 2017-04-13 16:02 | PN ---
Progress Note (short form) - Note Progress Note: RENAL Pt is awake and alert comfortable complains of left arm swelling, scrotal swelling and occasional lip swelling Last Vital Signs Temp Pulse Resp BP Pulse Ox 97.5 F L 92 H 20 129/69 100 04/13/17 10:00 04/13/17 10:00 04/13/17 10:00 04/13/17 10:00 04/13/17 09:00 heent no lip or tongue swelling noted lungs clear cvs s1s2 rr +OSWALDO loud abd soft, not tender non distended neuro a+ox3 ext LUE edema, has a clotted distal cephalic vein CBC, BMP 04/13/17 05:35 04/13/17 05:35 Current Medications Generic Name Dose Route Start Last Admin Trade Name Katherine PRN Reason Stop Dose Admin Abacavir Sulfate 300 mg 04/11/17 22:00 04/13/17 10:16 Ziagen - PO 300 mg BID [facility]ON[facility] Administration Amlodipine Besylate 5 mg 04/11/17 10:00 04/13/17 10:14 Norvasc - PO 5 mg DAILY [facility]ON[facility] Administration Aspirin 81 mg 04/10/17 10:00 04/13/17 10:14 Asa - PO 81 mg DAILY [facility] Administration Atorvastatin Calcium 40 mg 04/10/17 22:00 04/12/17 21:20 Lipitor - PO 40 mg HS [facility]ONAL Administration Carvedilol 12.5 mg 04/10/17 22:00 04/13/17 10:14 Coreg - PO 12.5 mg BID [facility]ONAL Administration Heparin Sodium (Porcine) 5,000 unit 04/12/17 22:00 04/13/17 10:14 Heparin - SQ 5,000 unit BID [facility]ONAL Administration Sodium Chloride 1,000 mls @ 42 mls/hr 04/12/17 17:45 04/12/17 17:49 1/2 Normal Saline IV 42 mls/hr ASDIR [facility]ONAL Administration Insulin Aspart 0 units 04/12/17 22:00 04/13/17 11:00 Novolog Vial SQ Not Given ACHS [facility] Protocol Lamivudine 150 mg 04/10/17 10:00 04/13/17 10:15 Epivir - PO 150 mg DAILY [facility] Administration Megestrol Acetate 800 mg 04/10/17 13:15 04/13/17 10:15 Megace Oral Suspension - PO 800 mg DAILY [facility] Administration Multivitamins/Minerals/Vitamin C 1 tab 04/13/17 10:00 04/13/17 10:14 Tab-A-Vit - PO 1 tab DAILY [facility] Administration Atazanavir Sulfate 1 tab 04/10/17 10:00 04/13/17 10:25 300 Mg/Cobicistat PO 1 tab 150mg (Evotaz) -Pt's DAILY RONAL Administration Own Sodium Bicarbonate 650 mg 04/10/17 22:00 04/13/17 15:18 Sodium Bicarbonate - PO 650 mg TID RONAL Administration Impression 1. TYRESE with likely CKD - unclear baseline creatinine 2. HIV 3. DM 4. HTN 5. hx dementia 6. decreased PO intake 7. hyperlipidemia 8. complex renal cyst 9. left upper extremity edema with clotted distal cephalic vein Plan - continue bicarb - obtain doppler of left upper extremity veins - patient may be allergic to fosinopril which he was on as outpatient. Would not restart given lip swelling - hydrate - consider holding megace if bedbound since it can increase dvt likelihood MV
[2017-04-13] MEDS: SODIUM CHLORIDE 0.45% 1,000 ML IV SCH (16:51)
[2017-04-13] MEDS ORDERED: PT OWN MED DRAWER 7, Y5N ONE (22:00)
[2017-04-13] MEDS: ATORVASTATIN CA 40 MG TABLET (FP) PO SCH (22:05)
[2017-04-14] MEDS: INSULIN (NOVOLOG) ASPART 100 UNITS/ML 10ML VIAL SQ SCH (06:14)
[2017-04-14] MEDS: SODIUM BICARBONATE 650 MG TABLET PO SCH ×3 (06:16→21:15)
--- NOTE | 2017-04-14 08:11 | PN ---
Progress Note, Physician History of Present Illness: The patient is a 71 year old male with significant past medical history of HIV, hypertension, and diabetes who presents to the ED for 2 weeks of generalized weakness and poor balance. Patient states he is compliant with his treatments for all of his past medical h/o, but has not been seen by a doctor in a year. Patient is from [place] and his son, who lives in [place], decided to bring him here to make sure patient gets proper care. Patient reports decreased appetite for the past 2 months. Denies abdominal pain, nausea, vomiting, or diarrhea. He also has complaints of weight loss, night sweats, and difficulty sleeping. - Current Medication List Current Medications: Active Medications Abacavir Sulfate (Ziagen -) 300 mg PO BID [facility] Last Admin: 04/13/17 22:05 Dose: 300 mg Amlodipine Besylate (Norvasc -) 5 mg PO DAILY [facility] Last Admin: 04/13/17 10:14 Dose: 5 mg Aspirin (Asa -) 81 mg PO DAILY [facility] Last Admin: 04/13/17 10:14 Dose: 81 mg Atorvastatin Calcium (Lipitor -) 40 mg PO HS [facility] Last Admin: 04/13/17 22:05 Dose: 40 mg Carvedilol (Coreg -) 12.5 mg PO BID [facility] Last Admin: 04/13/17 22:05 Dose: 12.5 mg Heparin Sodium (Porcine) (Heparin -) 5,000 unit SQ BID [facility] Last Admin: 04/13/17 22:04 Dose: 5,000 unit Sodium Chloride (1/2 Normal Saline) 1,000 mls @ 80 mls/hr IV ASDIR [facility] Last Admin: 04/13/17 16:51 Dose: 80 mls/hr Insulin Aspart (Novolog Vial) 0 units SQ ACHS [facility] PRN Reason: Protocol Last Admin: 04/14/17 06:14 Dose: Not Given Lamivudine (Epivir -) 150 mg PO DAILY [facility] Last Admin: 04/13/17 10:15 Dose: 150 mg Multivitamins/Minerals/Vitamin C (Tab-A-Vit -) 1 tab PO DAILY [facility] Last Admin: 04/13/17 10:14 Dose: 1 tab Atazanavir Sulfate 300 Mg/Cobicistat 150mg (Evotaz) -Pt's Own 1 tab PO DAILY [facility] Last Admin: 04/13/17 10:25 Dose: 1 tab Sodium Bicarbonate (Sodium Bicarbonate -) 650 mg PO TID [facility] Last Admin: 04/14/17 06:16 Dose: 650 mg - Objective Vital Signs: Vital Signs Temperature 99.4 F 04/14/17 05:24 Pulse Rate 65 04/14/17 05:24 Respiratory Rate 20 04/14/17 05:24 Blood Pressure 127/66 04/14/17 05:24 O2 Sat by Pulse Oximetry (%) 100 04/13/17 20:51 Eyes: Yes: WNL, Conjunctiva Clear, EOM Intact HENT: Yes: WNL, Atraumatic, Normocephalic Neck: Yes: WNL, Supple, Trachea Midline Cardiovascular: Yes: WNL, Regular Rate and Rhythm Respiratory: Yes: WNL, Regular, CTA Bilaterally Gastrointestinal: Yes: WNL, Normal Bowel Sounds Genitourinary: Yes: WNL Musculoskeletal: Yes: WNL Extremities: Yes: WNL Edema: No Integumentary: Yes: WNL Neurological: Yes: WNL, Alert, Oriented ...Motor Strength: WNL Psychiatric: Yes: WNL Labs: CBC, BMP 04/13/17 05:35 04/13/17 05:35 INR, PTT INR 1.10 (0.82-1.09) 04/09/17 23:35 Assessment/Plan - Problems (1) Generalized weakness Assessment/Plan: hx syncope. F/u orthostatic vital signs. fluids; increase PO intake. Physical rehabilitation. Code(s): R53.1 - WEAKNESS (2) HIV disease Code(s): B20 - HUMAN IMMUNODEFICIENCY VIRUS [HIV] DISEASE (3) HTN (hypertension) Assessment/Plan: on carvedilol and amlodipine. ECHO 04/11/17: normal LVEF; moderate mitral valve thickening: descrete Aortic valve nodule; cannot r/o vegetations of mitral and/or aortic valves; moderate MR Pt is afebrile; leukopenic and anemic Blood cultures are negative. Code(s): I10 - ESSENTIAL (PRIMARY) HYPERTENSION Qualifiers: Hypertension type: essential hypertension Qualified Code(s): I10 - Essential (primary) hypertension (4) Renal insufficiency Code(s): N28.9 - DISORDER OF KIDNEY AND URETER, UNSPECIFIED d/c telemetry May need a stress test as outpatient.
[2017-04-14 09:15] LABS: ANION GAP 6 (8-16); CO2 16 mmol/L (21-32); CREATININE 1.8 mg/dL (0.7-1.3); GLUCOSE,RANDOM 108 mg/dL (74-106)
[2017-04-14] MEDS: CARVEDILOL 12.5 MG TABLET (FP) PO SCH ×2 (09:39→21:15)
[2017-04-14] MEDS: ASPIRIN 81 MG CHEWABLE TABLETS PO SCH (09:39)
[2017-04-14] MEDS: MULTIVITAMINS (DAILY MVI) TABLET (FP) PO SCH (09:39)
[2017-04-14] MEDS: HEPARIN NA (PORCINE) 5,000 UNITS/ML 1ML VIAL SQ SCH ×2 (09:39→21:15)
[2017-04-14] MEDS: amLODIPine BESYLATE 5 MG TABLET (FP) PO SCH (09:39)
[2017-04-14] MEDS: ATAZANAVIR SULFATE PO SCH (09:41)
[2017-04-14] MEDS: COBICISTAT 150 MG PO SCH (09:41)
[2017-04-14] MEDS: lamiVUDine 150 MG TABLET PO SCH (09:50)
[2017-04-14] MEDS: ABACAVIR SULFATE 300 MG TABLET PO SCH ×2 (09:50→21:16)
--- NOTE | 2017-04-14 10:29 | PN ---
Physical Exam: SUBJECTIVE: Patient seen and examined. He says he feels fine today, he wants to go home, he is still having trouble lifting LUE above 90 degrees, says it feels heavy. OBJECTIVE: Vital Signs Period Temp Pulse Resp BP Sys/Latham Pulse Ox Last 24 Hr 98.1 F-99.4 F 60-65 18-20 115-133/56-91 100 PE Neuro: alert, awake, cn 2-12intact, oriented to person, condition (medically), place, place of living Pulm: CTAB CV: s1 s2 rrr + systolic 3/6 murmur Abd: s nt nd + bs Ext: LUE swelling, no tenderness MSK: 5/5 sensory LUE, self assist arm above head, full hand grasp Laboratory Results - last 24 hr 04/11/17 04/13/17 04/13/17 05:48 11:35 12:45 Sodium Potassium Chloride Carbon Dioxide Anion Gap BUN Creatinine POC Glucometer 99 Random Glucose Calcium Magnesium 1.8 Free T4 Lyme Screen IgG & IgM <0.91 04/13/17 04/13/17 04/14/17 16:40 22:03 05:35 Sodium Potassium Chloride Carbon Dioxide Anion Gap BUN Creatinine POC Glucometer 187 134 Random Glucose Calcium Magnesium Free T4 1.04 Lyme Screen IgG & IgM 04/14/17 04/14/17 05:35 06:12 Sodium 138 Potassium 5.5 H Chloride 116 H Carbon Dioxide 16 L Anion Gap 6 L BUN 29 H Creatinine 1.8 H POC Glucometer 119 Random Glucose 108 H D Calcium 9.0 Magnesium Free T4 Lyme Screen IgG & IgM Active Medications Generic Name Dose Route Start Last Admin Trade Name Katherine PRN Reason Stop Dose Admin Abacavir Sulfate 300 mg 04/11/17 22:00 04/14/17 09:50 Ziagen - PO 300 mg BID RONAL Administration Amlodipine Besylate 5 mg 04/11/17 10:00 04/14/17 09:39 Norvasc - PO 5 mg DAILY RONAL Administration Aspirin 81 mg 04/10/17 10:00 04/14/17 09:39 Asa - PO 81 mg DAILY RONAL Administration Atorvastatin Calcium 40 mg 04/10/17 22:00 04/13/17 22:05 Lipitor - PO 40 mg HS RONAL Administration Carvedilol 12.5 mg 04/10/17 22:00 04/14/17 09:39 Coreg - PO 12.5 mg BID RONAL Administration Heparin Sodium (Porcine) 5,000 unit 04/12/17 22:00 04/14/17 09:39 Heparin - SQ 5,000 unit BID [facility]ONAL Administration Sodium Chloride 1,000 mls @ 80 mls/hr 04/13/17 16:11 04/13/17 16:51 1/2 Normal Saline IV 80 mls/hr ASDIR RONAL Administration Insulin Aspart 0 units 04/12/17 22:00 04/14/17 06:14 Novolog Vial SQ Not Given ACHS RONAL Protocol Lamivudine 150 mg 04/10/17 10:00 04/14/17 09:50 Epivir - PO 150 mg DAILY [facility] Administration Multivitamins/Minerals/Vitamin C 1 tab 04/13/17 10:00 04/14/17 09:39 Tab-A-Vit - PO 1 tab DAILY [facility] Administration Atazanavir Sulfate 1 tab 04/10/17 10:00 04/14/17 09:41 300 Mg/Cobicistat PO 1 tab 150mg (Evotaz) -Pt's DAILY RONAL Administration Own Sodium Bicarbonate 650 mg 04/10/17 22:00 04/14/17 06:16 Sodium Bicarbonate - PO 650 mg TID RONAL Administration Microbiology 04/11/17 21:30 Blood Culture - Preliminary Blood - Peripheral Venous NO GROWTH OBTAINED AFTER 48 HOURS, INCUBATION TO CONTINUE FOR 3 DAYS. 04/11/17 21:30 Blood Culture - Preliminary Blood - Peripheral Venous NO GROWTH OBTAINED AFTER 48 HOURS, INCUBATION TO CONTINUE FOR 3 DAYS. 04/11/17 15:15 Urine Culture - Final Urine - Urine Clean Catch NO GROWTH OBTAINED Imagin/11 CXR: No active pulmonary disease 04/10 CT head: No acute intracranial process 04/10 US Renal: Mildly echogenic kidneys raising possibility of medical renal disease 04/11 Echo LV normal; RV normal; moderate MR; moderate TR; cannot exclude vegetation on the mitral valve or on the aortic valve 04/11 MRI brain shows chronic infarcts Assessment: 71 year old male with a history of HTN, DM, HIV on HAART therapy, admitted with generalized weakness, fatigue, poor appetite, and unsteady gait. Plan: 1. TYRESE with CKD component - Baseline unknown - Cr continues to improve today - Hold lisinopril, and stopped home fosinopril - Continue 1/2 NS 80cc/hr per renal 2. Metabolic acidosis - Continue PO bicarb TID 3. Cognitive impairment v. dementia - Due to underlying HIV vs metabolic disturbances - Neuro work up negative - TSH low, free T4 wnl 4. Syncopal episodes - Likely d/t poor oral intake v. low volume state - EKG shows SB 1st degree AVB - Lyme negative (heart block) 5. HIV - CD4 336 - Continue HAART 6. r/o endocarditis - ECHO 04/11: reviewed by Dr. Calix, cannot r/o vegetation on the mitral or aortic valves, will need outpt stress - DC tele 7. Hyperbilirubinemia - Likely secondary to Rey[place]z - US shows enlarged fatty liver - Total bili 4.3 -> 2.7 8. Left upper extremity swelling - hx of Left shoulder pin placement 1 year ago - US duplex negative for DVT, thrombus noted in superficial cephalic vein 9. DM II - Stable AM sugars - Stop ISS, accu checks 10. HTN - BP stable - Continue carvedilol 12.5 BID, amlodipine 5mg qday - Hold lisinopril 11. HLD - Lipitor 12. DVT PPX - Heparin sq - Daily PT Visit type - Emergency Visit Emergency Visit: Yes ED Registration Date: 04/10/17 Care time: The patient presented to the Emergency Department on the above date and was hospitalized for further evaluation of their emergent condition. - New Patient This patient is new to me today: Yes Date on this admission: 04/14/17 - Critical Care Critical Care patient: No
[2017-04-14] MEDS ORDERED: SODIUM POLYSTYRENE SULFONATE 15 GM/60 ML BOTTLE PO ONE ×2 (11:21→18:34)
--- NOTE | 2017-04-14 11:52 | PN ---
Progress Note, Physician History of Present Illness: Renal f/u Pt without any complaints Serum Cr better but K higher No C/O NV or diarrhea - Current Medication List Current Medications: Active Medications Abacavir Sulfate (Ziagen -) 300 mg PO BID [facility] Last Admin: 04/14/17 09:50 Dose: 300 mg Amlodipine Besylate (Norvasc -) 5 mg PO DAILY [facility] Last Admin: 04/14/17 09:39 Dose: 5 mg Aspirin (Asa -) 81 mg PO DAILY [facility] Last Admin: 04/14/17 09:39 Dose: 81 mg Atorvastatin Calcium (Lipitor -) 40 mg PO HS [facility] Last Admin: 04/13/17 22:05 Dose: 40 mg Carvedilol (Coreg -) 12.5 mg PO BID [facility] Last Admin: 04/14/17 09:39 Dose: 12.5 mg Heparin Sodium (Porcine) (Heparin -) 5,000 unit SQ BID [facility] Last Admin: 04/14/17 09:39 Dose: 5,000 unit Sodium Chloride (1/2 Normal Saline) 1,000 mls @ 80 mls/hr IV ASDIR [facility] Last Admin: 04/13/17 16:51 Dose: 80 mls/hr Lamivudine (Epivir -) 150 mg PO DAILY [facility] Last Admin: 04/14/17 09:50 Dose: 150 mg Multivitamins/Minerals/Vitamin C (Tab-A-Vit -) 1 tab PO DAILY [facility] Last Admin: 04/14/17 09:39 Dose: 1 tab Atazanavir Sulfate 300 Mg/Cobicistat 150mg (Evotaz) -Pt's Own 1 tab PO DAILY [facility] Last Admin: 04/14/17 09:41 Dose: 1 tab Sodium Bicarbonate (Sodium Bicarbonate -) 1,300 mg PO TID [facility] - Objective Vital Signs: Vital Signs Temperature 99.4 F 04/14/17 05:24 Pulse Rate 65 04/14/17 05:24 Respiratory Rate 20 04/14/17 05:24 Blood Pressure 127/66 04/14/17 05:24 O2 Sat by Pulse Oximetry (%) 100 04/13/17 20:51 Constitutional: Yes: No Distress Cardiovascular: Yes: S1, S2 Respiratory: Yes: CTA Bilaterally Gastrointestinal: Yes: Normal Bowel Sounds. No: Tenderness, Rebound Edema: (No LE edema ) Labs: CBC, BMP 04/13/17 05:35 04/14/17 05:35 INR, PTT INR 1.10 (0.82-1.09) 04/09/17 23:35 Assessment/Plan Impression 1. TYRESE in pt with CKD and tendency towards hyperkalemia 2. HIV 3. DM 4. HTN 5. H/O dementia 6. Left upper extremity edema with clotted distal cephalic vein 7. Hyperlipidemia 8. Complex renal cyst Plan Continue with IVF Reduce K in Diet Increase NaHCO3 1300 mgs PO TID Kayexalate 15 gms po daily Rot BMP in 4-6 hours and in am Discussed with the Hospitalist Dr Shields
[2017-04-14 16:52] LABS: ANION GAP 8 (8-16); CO2 18 mmol/L (21-32); CREATININE 1.9 mg/dL (0.7-1.3); GLUCOSE,RANDOM 202 mg/dL (74-106)
[2017-04-14] MEDS: SODIUM CHLORIDE 0.45% 1,000 ML IV SCH (16:54)
[2017-04-14] MEDS: ATORVASTATIN CA 40 MG TABLET (FP) PO SCH (21:15)
[2017-04-15] MEDS: SODIUM CHLORIDE 0.45% 1,000 ML IV SCH ×2 (03:00→15:24)
[2017-04-15] MEDS: SODIUM BICARBONATE 650 MG TABLET PO SCH ×3 (05:51→21:39)
[2017-04-15 07:41] LABS: ALBUMIN 2.6 g/dl (3.4-5.0); ANION GAP 8 (8-16); CALCIUM 8.4 mg/dL (8.5-10.1); CO2 17 mmol/L (21-32); GLUCOSE,RANDOM 128 mg/dL (74-106)
[2017-04-15 07:45] LABS: ALK PHOS 87 U/L (45-117); BILIRUBIN,TOTAL 2.4 mg/dL (0.2-1.0); CREATININE 1.8 mg/dL (0.7-1.3); SGOT/AST 15 U/L (15-37); SGPT/ALT 15 U/L (12-78); TOT PROT 5.4 g/dl (6.4-8.2)
[2017-04-15] MEDS ORDERED: SODIUM POLYSTYRENE SULFONATE 15 GM/60 ML BOTTLE PO ONE (08:00)
--- NOTE | 2017-04-15 10:00 | PN ---
Physical Exam: SUBJECTIVE: Patient seen and examined at bedside. No BM after Kayexalate. OBJECTIVE: Vital Signs 3 Period Temp Pulse Resp BP Sys/Latham Pulse Ox Last 24 Hr 97.5 F-99.5 F 63-84 18-20 123-133/53-85 100-100 GENERAL: The patient is awake, alert, and fully oriented, in no acute distress. HEAD: Normal with no signs of trauma. EYES: Sclera icteric. No ptosis. LUNGS: Breath sounds equal, clear to auscultation bilaterally, no wheezes, no crackles, no accessory muscle use. HEART: Regular rate and rhythm, S1, S2 without murmur, rub or gallop. ABDOMEN: Soft, nontender, nondistended, normoactive bowel sounds. NEUROLOGICAL: Cranial nerves II through XII grossly intact. Normal speech. PSYCH: Normal mood, normal affect. SKIN: Warm, dry, normal turgor, no rashes or lesions noted Laboratory Results - last 24 hr 3 04/14/17 04/15/17 15:40 05:35 Sodium 134 L 137 Potassium 5.4 H 5.3 H Chloride 108 H 112 H Carbon Dioxide 18 L 17 L Anion Gap 8 8 BUN 29 H 29 H Creatinine 1.9 H 1.8 H Creat Clearance w eGFR 37.49 Random Glucose 202 H D 128 H D Calcium 9.0 8.4 L Total Bilirubin 2.4 H AST 15 ALT 15 Alkaline Phosphatase 87 D Total Protein 5.4 L Albumin 2.6 L Active Medications 3 Generic Name Dose Route Start Last Admin Trade Name Freq PRN Reason Stop Dose Admin Abacavir Sulfate 300 mg 04/11/17 22:00 04/14/17 21:16 Ziagen - PO 300 mg BID RONAL Administration Amlodipine Besylate 5 mg 04/11/17 10:00 04/14/17 09:39 Norvasc - PO 5 mg DAILY [facility]ONAL Administration Aspirin 81 mg 04/10/17 10:00 04/14/17 09:39 Asa - PO 81 mg DAILY [facility]ONAL Administration Atorvastatin Calcium 40 mg 04/10/17 22:00 04/14/17 21:15 Lipitor - PO 40 mg HS RONAL Administration Carvedilol 12.5 mg 04/10/17 22:00 04/14/17 21:15 Coreg - PO 12.5 mg BID RONAL Administration Heparin Sodium (Porcine) 5,000 unit 04/12/17 22:00 04/14/17 21:15 Heparin - SQ 5,000 unit BID [facility]ONAL Administration Sodium Chloride 1,000 mls @ 80 mls/hr 04/13/17 16:11 04/15/17 03:00 1/2 Normal Saline IV 80 mls/hr ASDIR [facility]AL Administration Lamivudine 150 mg 04/10/17 10:00 04/14/17 09:50 Epivir - PO 150 mg DAILY [facility] Administration Multivitamins/Minerals/Vitamin C 1 tab 04/13/17 10:00 04/14/17 09:39 Tab-A-Vit - PO 1 tab DAILY [facility] Administration Atazanavir Sulfate 1 tab 04/10/17 10:00 04/14/17 09:41 300 Mg/Cobicistat PO 1 tab 150mg (Evotaz) -Pt's DAILY [facility]ONAL Administration Own Sodium Bicarbonate 1,300 mg 04/14/17 11:20 04/15/17 05:51 Sodium Bicarbonate - PO 1,300 mg TID RONAL Administration Imagin/11 CXR: No active pulmonary disease 04/10 CT head: No acute intracranial process 04/10 US Renal: Mildly echogenic kidneys raising possibility of medical renal disease 04/11 Echo LV normal; RV normal; moderate MR; moderate TR; cannot exclude vegetation on the mitral valve or on the aortic valve 04/11 MRI brain shows chronic infarcts 04/[address] Calix, cannot r/o vegetation on the mitral or aortic valves ASSESSMENT/PLAN: A: 71 year old male with a history of HTN, DM, HIV on HAART therapy, admitted with generalized weakness, fatigue, poor appetite, and unsteady gait. P: 1. Acute on chronic kidney disease - Baseline unknown - Cr unchanged today - Continue to hold SWATHI - Continue 1/2 NS 80cc/hr per renal 2. Metabolic acidosis - Continue PO bicarb TID 3. Cognitive impairment v. dementia - Due to underlying HIV vs metabolic disturbances - Neuro work up negative - TSH low, free T4 wnl - NH4 level- 28.61 4. Syncopal episodes - Likely d/t poor oral intake v. low volume state - EKG shows sinus mirian with 1st degree AVB - Lyme negative 5. HIV - CD4 336 - Continue HAART 6. r/o endocarditis - Echo as above - will need outpatient stress 7. Hyperbilirubinemia - Likely secondary to Rey[place]z - US shows enlarged fatty liver - Total bili 4.3->2.4 8. Left upper extremity swelling - hx of Left shoulder pin placement 1 year ago - US duplex negative for DVT, thrombus noted in superficial cephalic vein 9. DM II - Random glucose 128 in AM - continue to monitor 10. HTN - BP controlled - Continue carvedilol 12.5 BID - Continue amlodipine 5mg daily 11. HLD - Lipitor 12. Hyperkalemia - downtrending5.5->5.3 - daily kayexalate - monitor 13. F/E/N - Low K Renal diet - 1/2NS@80 14. PPX - Sqh - PT Dispo- Requires inpatient management of acute medical condition Visit type - Emergency Visit Emergency Visit: Yes ED Registration Date: 04/10/17 Care time: The patient presented to the Emergency Department on the above date and was hospitalized for further evaluation of their emergent condition. - New Patient This patient is new to me today: Yes Date on this admission: 04/15/17 - Critical Care Critical Care patient: No
[2017-04-15] MEDS: CARVEDILOL 12.5 MG TABLET (FP) PO SCH ×2 (10:43→21:39)
[2017-04-15] MEDS: HEPARIN NA (PORCINE) 5,000 UNITS/ML 1ML VIAL SQ SCH ×2 (10:44→21:40)
[2017-04-15] MEDS: MULTIVITAMINS (DAILY MVI) TABLET (FP) PO SCH (10:44)
[2017-04-15] MEDS: COBICISTAT 150 MG PO SCH (10:45)
[2017-04-15] MEDS: amLODIPine BESYLATE 5 MG TABLET (FP) PO SCH (10:45)
[2017-04-15] MEDS: ASPIRIN 81 MG CHEWABLE TABLETS PO SCH (10:45)
[2017-04-15] MEDS: ATAZANAVIR SULFATE PO SCH (10:45)
[2017-04-15] MEDS: lamiVUDine 150 MG TABLET PO SCH (10:46)
[2017-04-15] MEDS: ABACAVIR SULFATE 300 MG TABLET PO SCH ×2 (10:47→21:39)
[2017-04-15] MEDS ORDERED: PT OWN MED DRAWER 7, Y5N ONE (11:43)
--- NOTE | 2017-04-15 12:05 | PN ---
Progress Note, Physician History of Present Illness: The patient is a 71 year old male with significant past medical history of HIV, hypertension, and diabetes who presents to the ED for 2 weeks of generalized weakness and poor balance. Patient states he is compliant with his treatments for all of his past medical h/o, but has not been seen by a doctor in a year. Patient is from [place] and his son, who lives in [place], decided to bring him here to make sure patient gets proper care. Patient reports decreased appetite for the past 2 months. Denies abdominal pain, nausea, vomiting, or diarrhea. He also has complaints of weight loss, night sweats, and difficulty sleeping. - Current Medication List Current Medications: Active Medications Abacavir Sulfate (Ziagen -) 300 mg PO BID [facility] Last Admin: 04/15/17 10:47 Dose: 300 mg Amlodipine Besylate (Norvasc -) 5 mg PO DAILY [facility] Last Admin: 04/15/17 10:45 Dose: 5 mg Aspirin (Asa -) 81 mg PO DAILY [facility] Last Admin: 04/15/17 10:45 Dose: 81 mg Atorvastatin Calcium (Lipitor -) 40 mg PO HS [facility] Last Admin: 04/14/17 21:15 Dose: 40 mg Carvedilol (Coreg -) 12.5 mg PO BID [facility] Last Admin: 04/15/17 10:43 Dose: 12.5 mg Heparin Sodium (Porcine) (Heparin -) 5,000 unit SQ BID [facility] Last Admin: 04/15/17 10:44 Dose: 5,000 unit Sodium Chloride (1/2 Normal Saline) 1,000 mls @ 80 mls/hr IV ASDIR [facility] Last Admin: 04/15/17 03:00 Dose: 80 mls/hr Lamivudine (Epivir -) 150 mg PO DAILY [facility] Last Admin: 04/15/17 10:46 Dose: 150 mg Multivitamins/Minerals/Vitamin C (Tab-A-Vit -) 1 tab PO DAILY [facility] Last Admin: 04/15/17 10:44 Dose: 1 tab Atazanavir Sulfate 300 Mg/Cobicistat 150mg (Evotaz) -Pt's Own 1 tab PO DAILY [facility] Last Admin: 04/15/17 10:45 Dose: 1 tab Sodium Bicarbonate (Sodium Bicarbonate -) 1,300 mg PO TID [facility] Last Admin: 04/15/17 05:51 Dose: 1,300 mg - Objective Vital Signs: Vital Signs Temperature 98.2 F 04/15/17 05:46 Pulse Rate 67 04/15/17 05:46 Respiratory Rate 18 04/15/17 08:52 Blood Pressure 125/70 04/15/17 05:46 O2 Sat by Pulse Oximetry (%) 100 04/15/17 08:52 Eyes: Yes: WNL, Conjunctiva Clear, EOM Intact HENT: Yes: WNL, Atraumatic, Normocephalic Neck: Yes: WNL, Supple, Trachea Midline Cardiovascular: Yes: WNL, Regular Rate and Rhythm Respiratory: Yes: WNL, Regular, CTA Bilaterally Gastrointestinal: Yes: WNL, Normal Bowel Sounds Genitourinary: Yes: WNL Musculoskeletal: Yes: WNL Extremities: Yes: WNL Edema: No Integumentary: Yes: WNL Neurological: Yes: WNL, Alert, Oriented ...Motor Strength: WNL Psychiatric: Yes: WNL Labs: CBC, BMP 04/13/17 05:35 04/15/17 05:35 INR, PTT INR 1.10 (0.82-1.09) 04/09/17 23:35 Assessment/Plan - Problems (1) Generalized weakness Assessment/Plan: hx syncope. F/u orthostatic vital signs. fluids; increase PO intake. Physical rehabilitation. Code(s): R53.1 - WEAKNESS (2) HIV disease Code(s): B20 - HUMAN IMMUNODEFICIENCY VIRUS [HIV] DISEASE (3) HTN (hypertension) Assessment/Plan: on carvedilol and amlodipine. ECHO 04/11/17: normal LVEF; moderate mitral valve thickening: descrete Aortic valve nodule; cannot r/o vegetations of mitral and/or aortic valves; moderate MR Pt is afebrile; leukopenic and anemic Blood cultures are negative. Code(s): I10 - ESSENTIAL (PRIMARY) HYPERTENSION Qualifiers: Hypertension type: essential hypertension Qualified Code(s): I10 - Essential (primary) hypertension (4) Renal insufficiency Code(s): N28.9 - DISORDER OF KIDNEY AND URETER, UNSPECIFIED d/c telemetry May need a stress test as outpatient.
--- NOTE | 2017-04-15 12:07 | PN ---
Progress Note, Physician History of Present Illness: Renal f/u Pt without any complaints Serum Cr stable K borderline high at 5.3 after Kayexalate yesterday No C/O NV or diarrhea He has been avoiding K rich foods - Current Medication List Current Medications: Active Medications Abacavir Sulfate (Ziagen -) 300 mg PO BID [facility] Last Admin: 04/15/17 10:47 Dose: 300 mg Amlodipine Besylate (Norvasc -) 5 mg PO DAILY [facility] Last Admin: 04/15/17 10:45 Dose: 5 mg Aspirin (Asa -) 81 mg PO DAILY [facility] Last Admin: 04/15/17 10:45 Dose: 81 mg Atorvastatin Calcium (Lipitor -) 40 mg PO HS [facility] Last Admin: 04/14/17 21:15 Dose: 40 mg Carvedilol (Coreg -) 12.5 mg PO BID [facility] Last Admin: 04/15/17 10:43 Dose: 12.5 mg Heparin Sodium (Porcine) (Heparin -) 5,000 unit SQ BID [facility] Last Admin: 04/15/17 10:44 Dose: 5,000 unit Sodium Chloride (1/2 Normal Saline) 1,000 mls @ 80 mls/hr IV ASDIR [facility] Last Admin: 04/15/17 03:00 Dose: 80 mls/hr Lamivudine (Epivir -) 150 mg PO DAILY [facility] Last Admin: 04/15/17 10:46 Dose: 150 mg Multivitamins/Minerals/Vitamin C (Tab-A-Vit -) 1 tab PO DAILY [facility] Last Admin: 04/15/17 10:44 Dose: 1 tab Atazanavir Sulfate 300 Mg/Cobicistat 150mg (Evotaz) -Pt's Own 1 tab PO DAILY [facility] Last Admin: 04/15/17 10:45 Dose: 1 tab Sodium Bicarbonate (Sodium Bicarbonate -) 1,300 mg PO TID [facility] Last Admin: 04/15/17 05:51 Dose: 1,300 mg - Objective Vital Signs: Vital Signs Temperature 98.2 F 04/15/17 05:46 Pulse Rate 67 04/15/17 05:46 Respiratory Rate 18 04/15/17 08:52 Blood Pressure 125/70 04/15/17 05:46 O2 Sat by Pulse Oximetry (%) 100 04/15/17 08:52 Cardiovascular: Yes: S1, S2 Respiratory: Yes: CTA Bilaterally Gastrointestinal: Yes: Soft. No: Tenderness, Rebound Edema: No Neurological: Yes: Alert Labs: CBC, BMP 04/13/17 05:35 04/15/17 05:35 INR, PTT INR 1.10 (0.82-1.09) 04/09/17 23:35 Assessment/Plan Impression 1. TYRESE in pt with CKD and tendency towards hyperkalemia 2. HIV 3. DM 4. HTN 5. H/O dDementia 6. Left upper extremity edema with clotted distal cephalic vein 7. Hyperlipidemia 8. Complex renal cyst Plan Continue with IVF Dietary instruction Continue with NaHCO3 1300 mgs PO TID May need Kayexalate on a regular basis as an in patient or Patiromer as an outpatient Rpt labs in am Dr Shields
[2017-04-15] MEDS: ATORVASTATIN CA 40 MG TABLET (FP) PO SCH (21:39)
[2017-04-16] MEDS: SODIUM CHLORIDE 0.45% 1,000 ML IV SCH (03:25)
[2017-04-16] MEDS: SODIUM BICARBONATE 650 MG TABLET PO SCH (06:06)
[2017-04-16 07:14] LABS: BASOPHIL 0.2 % (0-2.0); EOSINOPHIL 0.3 % (0-4.5); MCH 29.1 pg (25.7-33.7); MCHC 33.8 g/dl (32.0-35.9); MEAN CELL VOLUME 86.1 fl (80-96); MEAN PLT VOLUME 8.1 fl (7.5-11.1); NEUTROPHILS 65.5 % (42.8-82.8); PLATELET COUNT 172 K/MM3 (134-434); RDW 16.2 % (11.9-15.9); WHITE BLOOD COUNT 4.2 K/mm3 (4.0-10.0)
[2017-04-16 07:36] LABS: ANION GAP 7 (8-16); CALCIUM 8.3 mg/dL (8.5-10.1); CO2 19 mmol/L (21-32); GLUCOSE,RANDOM 127 mg/dL (74-106)
[2017-04-16 07:37] LABS: CREATININE 1.7 mg/dL (0.7-1.3)
[2017-04-16] MEDS: ASPIRIN 81 MG CHEWABLE TABLETS PO SCH (09:58)
[2017-04-16] MEDS: MULTIVITAMINS (DAILY MVI) TABLET (FP) PO SCH (09:58)
[2017-04-16] MEDS: amLODIPine BESYLATE 5 MG TABLET (FP) PO SCH (09:58)
[2017-04-16] MEDS: HEPARIN NA (PORCINE) 5,000 UNITS/ML 1ML VIAL SQ SCH (09:58)
[2017-04-16] MEDS: CARVEDILOL 12.5 MG TABLET (FP) PO SCH (09:58)
[2017-04-16] MEDS: lamiVUDine 150 MG TABLET PO SCH (09:59)
[2017-04-16] MEDS: ATAZANAVIR SULFATE PO SCH (09:59)
[2017-04-16] MEDS: COBICISTAT 150 MG PO SCH (09:59)
[2017-04-16] MEDS: ABACAVIR SULFATE 300 MG TABLET PO SCH (10:00)
[2017-04-16 11:03] VITALS: BP 130/59; PULSE 58; TEMP 99.1
--- NOTE | 2017-04-16 12:00 | PN ---
Progress Note (short form) - Note Progress Note: RENAL Pt is awake and alert comfortable no spercific complaints Last Vital Signs Temp Pulse Resp BP Pulse Ox 99.1 F 58 L 18 130/59 99 04/16/17 10:00 04/16/17 10:00 04/16/17 10:00 04/16/17 10:00 04/16/17 09:00 heent no lip or tongue swelling noted lungs clear cvs s1s2 rr +OSWALDO loud abd soft, not tender non distended neuro a+ox3 ext LUE edema, has a clotted distal cephalic vein Current Medications Generic Name Dose Route Start Last Admin Trade Name Johnq PRN Reason Stop Dose Admin Abacavir Sulfate 300 mg 04/11/17 22:00 04/16/17 10:00 Ziagen - PO 300 mg BID RONAL Administration Amlodipine Besylate 5 mg 04/11/17 10:00 04/16/17 09:58 Norvasc - PO 5 mg DAILY RONAL Administration Aspirin 81 mg 04/10/17 10:00 04/16/17 09:58 Asa - PO 81 mg DAILY RONAL Administration Atorvastatin Calcium 40 mg 04/10/17 22:00 04/15/17 21:39 Lipitor - PO 40 mg HS RONAL Administration Carvedilol 12.5 mg 04/10/17 22:00 04/16/17 09:58 Coreg - PO 12.5 mg BID RONAL Administration Heparin Sodium (Porcine) 5,000 unit 04/12/17 22:00 04/16/17 09:58 Heparin - SQ 5,000 unit BID RONAL Administration Sodium Chloride 1,000 mls @ 80 mls/hr 04/13/17 16:11 04/16/17 03:25 1/2 Normal Saline IV 80 mls/hr ASDIR RONAL Administration Lamivudine 150 mg 04/10/17 10:00 04/16/17 09:59 Epivir - PO 150 mg DAILY RONAL Administration Multivitamins/Minerals/Vitamin C 1 tab 04/13/17 10:00 04/16/17 09:58 Tab-A-Vit - PO 1 tab DAILY RONAL Administration Atazanavir Sulfate 1 tab 04/10/17 10:00 04/16/17 09:59 300 Mg/Cobicistat PO 1 tab 150mg (Evotaz) -Pt's DAILY RONAL Administration Own Sodium Bicarbonate 1,300 mg 04/14/17 11:20 04/16/17 06:06 Sodium Bicarbonate - PO 1,300 mg TID RONAL Administration CBC, BMP 04/16/17 05:35 04/16/17 05:35 Impression 1. TYRESE with likely CKD - unclear baseline creatinine 2. HIV 3. DM 4. HTN 5. hx dementia 6. decreased PO intake 7. hyperlipidemia 8. complex renal cyst 9. left upper extremity edema with clotted distal cephalic vein Plan - continue bicarb -ok to dc on bicarb and kayexalate can follow up with Dr Barr next week MV
--- NOTE | 2017-04-16 12:00 | PN ---
Progress Note, Physician History of Present Illness: The patient is a 71 year old male with significant past medical history of HIV, hypertension, and diabetes who presents to the ED for 2 weeks of generalized weakness and poor balance. Patient states he is compliant with his treatments for all of his past medical h/o, but has not been seen by a doctor in a year. Patient is from [place] and his son, who lives in [place], decided to bring him here to make sure patient gets proper care. Patient reports decreased appetite for the past 2 months. Denies abdominal pain, nausea, vomiting, or diarrhea. He also has complaints of weight loss, night sweats, and difficulty sleeping. - Current Medication List Current Medications: Active Medications Abacavir Sulfate (Ziagen -) 300 mg PO BID [facility] Last Admin: 04/16/17 10:00 Dose: 300 mg Amlodipine Besylate (Norvasc -) 5 mg PO DAILY [facility] Last Admin: 04/16/17 09:58 Dose: 5 mg Aspirin (Asa -) 81 mg PO DAILY RONAL Last Admin: 04/16/17 09:58 Dose: 81 mg Atorvastatin Calcium (Lipitor -) 40 mg PO HS [facility] Last Admin: 04/15/17 21:39 Dose: 40 mg Carvedilol (Coreg -) 12.5 mg PO BID RONAL Last Admin: 04/16/17 09:58 Dose: 12.5 mg Heparin Sodium (Porcine) (Heparin -) 5,000 unit SQ BID [facility] Last Admin: 04/16/17 09:58 Dose: 5,000 unit Sodium Chloride (1/2 Normal Saline) 1,000 mls @ 80 mls/hr IV ASDIR [facility] Last Admin: 04/16/17 03:25 Dose: 80 mls/hr Lamivudine (Epivir -) 150 mg PO DAILY [facility] Last Admin: 04/16/17 09:59 Dose: 150 mg Multivitamins/Minerals/Vitamin C (Tab-A-Vit -) 1 tab PO DAILY [facility] Last Admin: 04/16/17 09:58 Dose: 1 tab Atazanavir Sulfate 300 Mg/Cobicistat 150mg (Evotaz) -Pt's Own 1 tab PO DAILY [facility] Last Admin: 04/16/17 09:59 Dose: 1 tab Sodium Bicarbonate (Sodium Bicarbonate -) 1,300 mg PO TID [facility] Last Admin: 04/16/17 06:06 Dose: 1,300 mg - Objective Vital Signs: Vital Signs Temperature 99.1 F 04/16/17 10:00 Pulse Rate 58 L 04/16/17 10:00 Respiratory Rate 18 04/16/17 10:00 Blood Pressure 130/59 04/16/17 10:00 O2 Sat by Pulse Oximetry (%) 99 04/16/17 09:00 Eyes: Yes: WNL, Conjunctiva Clear, EOM Intact HENT: Yes: WNL, Atraumatic, Normocephalic Neck: Yes: WNL, Supple, Trachea Midline Cardiovascular: Yes: WNL, Regular Rate and Rhythm Respiratory: Yes: WNL, Regular, CTA Bilaterally Gastrointestinal: Yes: WNL, Normal Bowel Sounds Genitourinary: Yes: WNL Musculoskeletal: Yes: WNL Extremities: Yes: WNL Edema: No Integumentary: Yes: WNL Neurological: Yes: WNL, Alert, Oriented ...Motor Strength: WNL Psychiatric: Yes: WNL Labs: CBC, BMP 04/16/17 05:35 04/16/17 05:35 INR, PTT INR 1.10 (0.82-1.09) 04/09/17 23:35 Assessment/Plan - Problems (1) Generalized weakness Assessment/Plan: hx syncope. F/u orthostatic vital signs. fluids; increase PO intake. Physical rehabilitation. Code(s): R53.1 - WEAKNESS (2) HIV disease Code(s): B20 - HUMAN IMMUNODEFICIENCY VIRUS [HIV] DISEASE (3) HTN (hypertension) Assessment/Plan: on carvedilol and amlodipine. ECHO 04/11/17: normal LVEF; moderate mitral valve thickening: descrete Aortic valve nodule; cannot r/o vegetations of mitral and/or aortic valves; moderate MR Pt is afebrile; leukopenic and anemic Blood cultures are negative. Code(s): I10 - ESSENTIAL (PRIMARY) HYPERTENSION Qualifiers: Hypertension type: essential hypertension Qualified Code(s): I10 - Essential (primary) hypertension (4) Renal insufficiency Code(s): N28.9 - DISORDER OF KIDNEY AND URETER, UNSPECIFIED d/c telemetry May need a stress test as outpatient.
--- NOTE | 2017-04-16 12:32 | DS ---
Physical Exam: SUBJECTIVE: Patient seen and examined, he did have an BM, he has no acute complaints. OBJECTIVE: Vital Signs Period Temp Pulse Resp BP Sys/Latham Pulse Ox Last 24 Hr 98.6 F-99.4 F 58-77 18-18 119-146/57-76 97-99 PE Neuro: alert, awake, cn 2-12intact, oriented to person, condition (medically), place, place of living Pulm: CTAB CV: s1 s2 rrr + systolic 3/6 murmur Abd: s nt nd + bs Ext: LUE swelling, no tenderness MSK: 5/5 sensory LUE, self assist arm above head, full hand grasp Laboratory Results - last 24 hr 04/16/17 04/16/17 05:35 05:35 WBC 4.2 RBC 2.88 L Hgb 8.4 L Hct 24.8 L MCV 86.1 MCH 29.1 MCHC 33.8 RDW 16.2 H Plt Count 172 MPV 8.1 Neutrophils % 65.5 Lymphocytes % 25.0 Monocytes % 9.0 Eosinophils % 0.3 Basophils % 0.2 Sodium 138 Potassium 4.8 Chloride 112 H Carbon Dioxide 19 L Anion Gap 7 L BUN 30 H Creatinine 1.7 H Random Glucose 127 H Calcium 8.3 L HOSPITAL COURSE: Date of Admission:04/10/17 Date of Discharge: 04/16/17 Minutes to complete discharge: 37 Discharge Summary Reason For Visit: RENAL INSUFFIENCY/DEMENTIA/(HIV)/WEAKNESS Current Active Problems TYRESE (acute kidney injury) (Acute) DVT prophylaxis (Acute) Dementia (Acute) Generalized weakness (Acute) HIV disease (Acute) HTN (hypertension) (Acute) Hyperkalemia (Acute) Renal insufficiency (Acute) Syncope (Acute) Hospital Course: Initial Hospital Course: 71 year old male with a past medical history of Hypertension, HIV (HAART Compliant), DM, Dementia admitted with generalized weakness, unsteady gait x 2 weeks and decreased appetite for months. The patient is originally from [place] and is living with his son, who brought him in for evaluation. Patient reports taking his medications which he gets in mail order, but has not seen a doctor in close to a year. Imagin/11 CT head: No acute intracranial process 04/10 US Renal: Mildly echogenic kidneys raising possibility of medical renal disease 04/11 Echo LV normal; RV normal; moderate MR; moderate TR; cannot exclude vegetation on the mitral valve or on the aortic valve 04/11 MRI brain shows chronic infarcts Subsequent Hospital Course/Progress Note/Discharge Summary by a/p: Assessment: 71 year old male with a history of HTN, DM, HIV on HAART therapy, admitted with generalized weakness, fatigue, poor appetite, and unsteady gait. Plan: 1. TYRESE with CKD component - Improved with fluids - Baseline unknown - Cr continues to improve on discharge - Do not resume home SWATHI, now marked as allergy d/t reports of facial swelling 2. Metabolic acidosis - Continue PO bicarb 1300 TID - Will need Renal follow up next week with Dr. Barr, (referral enclosed pt aware) 3. Hyperkalemia - Resolved on DC - Home with Kayexalate 2x per week (Sun, and Wednesdays) 4. Cognitive impairment v. dementia - Resolved on DC, returned to baseline - Due to underlying HIV vs metabolic disturbances - Neuro work up negative - TSH low, free T4 wnl 5. Syncopal episodes - Likely d/t poor oral intake v. low volume state - EKG shows SB 1st degree AVB - Lyme negative (heart block) 6. HIV - CD4 336 - Continue HAART - Follow as outpt at [facility] (referral enclosed) 7. r/o endocarditis - ECHO 04/11: reviewed by Dr. Calix, cannot r/o vegetation on the mitral or aortic valves, will need outpt stress 8. Hyperbilirubinemia - Likely secondary to [place] - US shows enlarged fatty liver - Total bili 4.3 -> 2.7 9. Left upper extremity swelling - hx of Left shoulder pin placement 1 year ago - US duplex negative for DVT, thrombus noted in superficial cephalic vein - Continue home PT exercises 10. DM II - Not diabetic, Hgba1c 6.1 11. HTN - BP stable - Carvedilol 12.5 BID - Amlodipine 5mg qday - Stopped SWATIH d/t above 12. HLD - Lipitor 40mg HS dispo: - Home with above meds and follow up (referrals enclosed) Condition: Stable - Instructions Diet, Activity, Other Instructions: Please return to the ED for any new, persistent, or worsening symptoms. Follow up with PCP in 1 week. (referral for PCP at [facility] Evelyn Hensley enclosed) Take medications as directed on home medication list Do not take Fosinopril anymore or any medications that are an SWATHI inhibitor, you may be allergic Call Dr. Barr office and make an appt to see him next Sunday for follow up Referrals: Evelyn Hensley NP [Nurse Practitioner] - 1 Week (Follow up at [facility] for continued management ) Sally Barr MD [Staff Physician] - 1 Week (Follow up next sunday for lab work and managment ) Disposition: HOME - Home Medications Comprehensive Discharge Medication List: Ambulatory Orders Abacavir Sulfate [Abacavir] 300 mg PO DAILY 04/09/17 Amlodipine Besylate [Norvasc -] 50 mg PO DAILY 04/09/17 Aspirin [ASA -] 81 mg PO DAILY 04/09/17 Atazanavir Sulfate/Cobicistat [Evotaz 300 mg-150 mg Tablet] 1 tab PO DAILY 04/09 Atorvastatin Ca [Lipitor] 40 mg PO HS 04/09/17 Carvedilol 12.5 mg PO DAILY 04/09/17 Lamivudine 150 mg PO DAILY 04/09/17 Sodium Bicarbonate - 1,300 mg PO TID #180 tablet 04/16/17 Sodium Polystyrene Sulfonate [Kayexalate] 15 gm PO WESA@1000 #1 bottle 04/16/17 This patient is new to me today: No Emergency Visit: Yes ED Registration Date: 04/10/17 Care time: The patient presented to the Emergency Department on the above date and was hospitalized for further evaluation of their emergent condition. Critical Care patient: No - Discharge Referral Referred to [facility] No
[2017-04-19 10:18] LABS: HIV-1 RNA by PCR <20 copies/mL (.)
== END 2017-04-16 14:33 | disposition home or self-care (01) | DRG 683 ==
LOC: JER 20:29 → JERBED 04-10 02:30 → UNDOADMIN 04-10 02:42 → J4W 04-10 04:10
PROVIDERS: ADMIT Internal Medicine; ATTEND Nurse Practitioner Acute Care
DX: N17.9 Acute kidney failure, unspecified (principal); E87.2 Acidosis; I82.612 Acute embolism and thrombosis of superficial veins of left upper extremity; I12.9 Hypertensive chronic kidney disease with stage 1 through stage 4 chronic kidney disease, or unspecified chronic kidney disease; N18.9 Chronic kidney disease, unspecified; E87.5 Hyperkalemia; F03.90 Unspecified dementia, unspecified severity, without behavioral disturbance, psychotic disturbance, mood disturbance, and anxiety; R63.4 Abnormal weight loss; Z68.22 Body mass index [BMI] 22.0-22.9, adult; R26.0 Ataxic gait; I44.0 Atrioventricular block, first degree; E11.22 Type 2 diabetes mellitus with diabetic chronic kidney disease; R53.1 Weakness; E80.6 Other disorders of bilirubin metabolism; R62.7 Adult failure to thrive; I07.1 Rheumatic tricuspid insufficiency; N28.1 Cyst of kidney, acquired; Z21 Asymptomatic human immunodeficiency virus [HIV] infection status; K76.0 Fatty (change of) liver, not elsewhere classified; R55 Syncope and collapse; R63.0 Anorexia
CPT/HCPCS: 36415; 70450-TC; 70551-TC; 71010-TC; 76705-TC; 76775-TC; 80048; 80053; 80061; 80076; 81003; 81015; 82140; 82310; 82436; 82550; 82553; 82570; 82607; 82747; 83036; 83721; 83735; 84100; 84133; 84156; 84300; 84439; 84443; 84484; 85014; 85025; 85610; 85651; 86038; 86140; 86359; 86360; 86593; 86618; 87040; 87086; 87389; 87536; 93005; 93010; 93306-TC; 93971; 97116-GP; 97162-GP; 99283-25; J1644

== ENCOUNTER 2017-04-30 06:58 | Emergency (ER) | payer OTHER ==
[2017-04-30 07:43] VITALS: BP 114/53; PULSE 66; TEMP 98.2; BMI 21.3
[2017-04-30] MEDS ORDERED: AMPICILLIN NA/SULBACTAM NA 3 GM in SODIUM CHLORIDE 100 ML IVPB ONE (10:12)
[2017-04-30] MEDS ORDERED: VANCOMYCIN 1,000 MG in DEXTROSE 5%-WATER - 250 ML IVPB ONE (10:18)
--- NOTE | 2017-04-30 10:29 | PDOC ---
Attending Attestation - Resident Resident Name: Avni Kyle - ED Attending Attestation I have performed the following: I have examined & evaluated the patient, The case was reviewed & discussed with the resident, I agree w/resident's findings & plan, Exceptions are as noted - HPI HPI: 04/30/17 10:23 71-year-old male with history of hypertension, HIV on heart medication with recent CD4 in the 300s, diabetes and discharged on 04/16 after admission for renal insufficiency complicated by left upper extremity thrombophlebitis from IV now presents with about one day of left wrist pain and swelling. No sensory deficit, but has painful extension of his digits and has difficulty ranging his wrist. No fevers or chills, no injury, no further arm swelling. - Physicial Exam PE: 04/30/17 10:24 Afebrile. Well-appearing. Agree with exam. LUE: no diffuse edema, FROM shoulder/elbow. L wrist with warmth /slight swelling on the dorsal aspect, no focal bony ttp but tender over the dorsal joint space, ? small effusion. FROM digits with some discomfort on extension, otherwise NVI. - Medical Decision Making 04/30/17 10:27 Patient seen and evaluated with the resident. I agree with the overall evaluation, assessment, and management with the following summary of visit: 71-year-old male with HIV and diabetes presents with atraumatic left wrist pain. On exam, neurovascularly intact but with tenderness over the joint space, and difficulty ranging the wrist at all. Most concerning for septic joint v. tenosynovitis, r/o DVT or injury. labs including esr/crp wrist xray, LUE doppler will likely need L wrist arthrocentesis, no overlying cellulitis IV abx given immunocompromised (HIV, DM) reassess
[2017-04-30 10:35] LABS: BASOPHIL 0.4 % (0-2.0); EOSINOPHIL 2.1 % (0-4.5); MCHC 32.6 g/dl (32.0-35.9); MEAN CELL VOLUME 88.9 fl (80-96); MEAN PLT VOLUME 8.1 fl (7.5-11.1); NEUTROPHILS 76.2 % (42.8-82.8); PLATELET COUNT 212 K/MM3 (134-434); RDW 16.7 % (11.9-15.9); WHITE BLOOD COUNT 5.1 K/mm3 (4.0-10.0)
[2017-04-30 10:51] LABS: INR 1.14 (0.82-1.09); PROTHROMBIN TIME (PATIENT) 12.6 SEC (9.98-11.88)
[2017-04-30 10:57] LABS: ALBUMIN 3.2 g/dl (3.4-5.0); ALK PHOS 92 U/L (45-117); ANION GAP 9 (8-16); BILIRUBIN,TOTAL 3.2 mg/dL (0.2-1.0); CALCIUM 9.4 mg/dL (8.5-10.1); CO2 15 mmol/L (21-32); CREATININE 2.2 mg/dL (0.7-1.3); GLUCOSE,RANDOM 146 mg/dL (74-106); SGOT/AST 15 U/L (15-37); SGPT/ALT 27 U/L (12-78); TOT PROT 7.4 g/dl (6.4-8.2)
[2017-04-30] MEDS ORDERED: VANCOMYCIN 1 GRAM (PRE-DOCKED) 250 ML IVPB ONE (12:22)
--- NOTE | 2017-04-30 13:17 | PDOC ---
History of Present Illness - General Chief Complaint: Pain Stated Complaint: LEFT WRIST SWOLLEN Time Seen by Provider: 04/30/17 08:13 - History of Present Illness Initial Comments: 04/30/17 13:11 71 yo M with h/o HIV, HTN, and recent superficial thrombophlebitis who presets with left wrist pain. Pt. reports waking up 24 hours ago with increased swelling and pain of left wrist. Denies trauma to the wrist or falling on outstretched hand. Denies visualizing redness, or feeling warmth of the wrist. Denies fevers/chills, N/V. Wrist is painful with movement in any direction or pressure. Has difficulty with passive range of motion of left wrist. Uses right arm to assist in flexion/extension of left wrist movement. Denies alcohol intake or h/o gout. Reports taking Advil OTC for pain. Denies anticoagulation use or antibiotic treatment for recent superficial thrombophlebitis ( 04/13) from lower 1/3rd humerus to wrist as diagnosed on doppler. Currently moving from [place] and [facility]. Past History - Past Medical History Allergies/Adverse Reactions: Allergies Allergy/AdvReac Type Severity Reaction Status Date / Time fosinopril Allergy lip Verified 04/30/17 07:43 swelling Home Medications: Ambulatory Orders Abacavir Sulfate [Abacavir] 300 mg PO DAILY 04/09/17 Amlodipine Besylate [Norvasc -] 50 mg PO DAILY 04/09/17 Aspirin [ASA -] 81 mg PO DAILY 04/09/17 Atazanavir Sulfate/Cobicistat [Evotaz 300 mg-150 mg Tablet] 1 tab PO DAILY 04/09 Atorvastatin Ca [Lipitor] 40 mg PO HS 04/09/17 Carvedilol 12.5 mg PO DAILY 04/09/17 Lamivudine 150 mg PO DAILY 04/09/17 Sodium Bicarbonate - 1,300 mg PO TID #180 tablet 04/16/17 Sodium Polystyrene Sulfonate [Kayexalate] 15 gm PO WESA@1000 #1 bottle 04/16/17 Colchicine [Colcrys -] 1.2 mg PO DAILY #10 tablet 04/30/17 Tramadol HCl 50 mg PO PRN PRN #14 tablet MDD 150 04/30/17 Diabetes: Yes HTN: Yes HIV: Yes - Psycho/Social/Smoking Cessation Hx Suicidal Ideation: No Smoking History: Never smoked Hx Alcohol Use: No Drug/Substance Use Hx: No Review of Systems - Review of Systems Comments:: 04/30/17 19:01 GENERAL/CONSTITUTIONAL: No fever or chills. No weakness. HEAD, EYES, EARS, NOSE AND THROAT: No change in vision. No ear pain or discharge. No sore throat. CARDIOVASCULAR: No chest pain or shortness of breath RESPIRATORY: No cough, wheezing, or hemoptysis. GASTROINTESTINAL: No nausea, vomiting, diarrhea or constipation. GENITOURINARY: No dysuria, frequency, or change in urination. MUSCULOSKELETAL: + left wrist pain and swelling. No neck or back pain. SKIN: No rash NEUROLOGIC: No headache, vertigo, loss of consciousness, or change in strength/ sensation. ENDOCRINE: No increased thirst. No abnormal weight change HEMATOLOGIC/LYMPHATIC: No anemia, easy bleeding, or history of blood clots. ALLERGIC/IMMUNOLOGIC: No hives or skin allergy. *Physical Exam - Vital Signs Last Vital Signs Temp Pulse Resp BP Pulse Ox 98.2 F 66 18 114/53 100 04/30/17 07:39 04/30/17 07:39 04/30/17 07:39 04/30/17 07:39 04/30/17 07:39 - Physical Exam Comments: 04/30/17 19:00 GENERAL: Awake, alert, and fully oriented, in no acute distress HEAD: No signs of trauma, normocephalic, atraumatic EYES:+ Scleral icterus. PERRLA, EOMI, conjunctiva clear ENT: Auricles normal inspection, hearing grossly normal, nares patent, oropharynx clear without exudates. Moist mucosa NECK: Normal ROM, supple, no lymphadenopathy, JVD, or masses LUNGS: No distress, speaks full sentences, clear to auscultation bilaterally HEART: Regular rate and rhythm, normal S1 and S2, no murmurs, rubs or gallops, peripheral pulses normal and equal bilaterally. ABDOMEN: Soft, nontender, normoactive bowel sounds. No guarding, no rebound. No masses EXTREMITIES: Left wrist tender to palpation at joint line. Tender to palpation at radial and ulnar styloid process. Decreased passive ROM and active ROM at left wrist. left wrist slightly warm to palpation and absent erythema. no edema. No clubbing or cyanosis. NEUROLOGICAL: Cranial nerves II through XII grossly intact. Normal speech, normal gait, no focal sensorimotor deficits SKIN: Warm, Dry, normal turgor, no rashes or lesions noted. Procedures - Arthrocentesis Indication: Crystals (Gout/Psuedogout Arthrocentesis Site: left: other (Left Wrist) Flexion: <20 degrees Betadine Prep: Yes Sterile Dressing Applied: Yes Dry Tap: Yes Anesthesia: 1% Lidocaine Needle Size (guage): 22g Complications: Yes (Dry tap, no fluid aspiration visualized) ED Treatment Course - LABORATORY CBC & Chemistry Diagram: 04/30/17 10:20 04/30/17 10:20 - ADDITIONAL ORDERS Additional order review: Laboratory Results 04/30/17 04/30/17 04/30/17 10:20 10:20 10:15 INR 1.14 Sodium 136 Potassium 5.0 Chloride 112 H Carbon Dioxide 15 L D Anion Gap 9 BUN 44 H D Creatinine 2.2 H D Creat Clearance w eGFR 29.74 Random Glucose 146 H Calcium 9.4 Total Bilirubin 3.2 H D AST 15 ALT 27 D Alkaline Phosphatase 92 C-Reactive Protein 2.0 H D Total Protein 7.4 D Albumin 3.2 L D 04/30/17 10:20 RBC 3.46 L D MCV 88.9 MCHC 32.6 RDW 16.7 H MPV 8.1 Neutrophils % 76.2 Lymphocytes % 13.6 D Monocytes % 7.7 Eosinophils % 2.1 D Basophils % 0.4 - RADIOLOGY Radiology Studies Ordered: Category Date Time Status WRIST W/HAND-LEFT* [RAD] Stat Radiology 04/30/17 11:01 Completed - Medications Given in the ED: ED Medications Discontinued Medications Generic Name Dose Route Start Last Admin Trade Name Katherine PRN Reason Stop Dose Admin Ampicillin Sodium/Sulbactam 100 mls @ 200 mls/hr 04/30/17 10:12 04/30/17 10:33 Sodium 3 gm/ Sodium Chloride IVPB 04/30/17 10:41 200 mls/hr ONCE ONE Administration Vancomycin HCl 1,000 mg/ 250 mls @ 250 mls/hr 04/30/17 10:18 04/30/17 11:53 Dextrose IVPB 04/30/17 11:17 250 mls/hr ONCE ONE Administration Protocol Medical Decision Making - Medical Decision Making 04/30/17 19:06 *DC/Admit/Observation/Transfer Diagnosis at time of Disposition: Gout attack Qualifiers: Gout site: wrist Gout etiology: unspecified cause Laterality: left Qualified Code(s): M10.9 - Gout, unspecified - Discharge Dispostion Disposition: HOME Condition at time of disposition: Stable Admit: No - Prescriptions Prescriptions: Colchicine [Colcrys -] 1.2 mg PO DAILY #10 tablet - Referrals Referrals: Octaviano Manzano MD [Staff Physician] - - Patient Instructions Printed Discharge Instructions: DI for Gout, Higher Vitamin C Intake Associated With Lower Risk of Gout, Gout (Alternative Therapy) Additional Instructions: Please follow up wit Dr. Herrera to establish care. Take Tramadol as needed for pain. Return to ED if you develop fevers/chills, nausea or vomiting, and/or worsening symptoms. Print Language: SETSWANA - Attestations Physician Attestion: 04/30/17 16:17 I, Dr. Avni Kyle, attest that this document has been prepared under my direction and personally reviewed by me in its entirety. I further attest, that it accurately reflects all work, treatment, procedures and medical decision -making performed by me.
[2017-04-30] MEDS ORDERED: COLCHICINE 0.6 MG TABLET (FP) PO ONE (15:46)
[2017-04-30] MEDS ORDERED: COLCHICINE 0.6 MG TABLET (FP) ONE (15:49)
--- NOTE | 2017-05-01 06:29 | CONS ---
DATE OF CONSULTATION: 04/30/2017 HISTORY OF PRESENT ILLNESS: Patient is a 71-year-old male who was just recently being treated for IV antibiotics with an infection who now presents back to the emergency room with a painful left wrist. Patient is HIV positive and gives a history of gout. In the emergency room, they tried tapping the left wrist and got back no fluid. Patient denies any recent fall or trauma. No fever or chills. Laboratory work is significant for a systemic white count within normal limits, a sedimentation rate of about 60, and a C-reactive protein of 2. PHYSICAL EXAMINATION: He has no erythema, ecchymosis, swelling of his left wrist. He does have pain with range of motion of his fingers and his wrist. Cannot make a fist. No Froment, Phalen, Tinel, Margo sign. Negative snuffbox tenderness. Full range of motion of his shoulder, elbow. IMAGING: X-rays of his wrist show some diffuse degenerative changes but no fracture, dislocation, or lesions. IMPRESSION: Painful left wrist but no evidence of any infection, more probably secondary to acute gout flare secondary to his most recent hospitalization. RECOMMENDATIONS: I have recommended hydration. He cannot take antiinflammatories as he has kidney issues. I would give him some colchicine, splint his wrist, ice and elevation, and follow him. Thank you. PREETI SHORE M.D. [id number]
== END 2017-04-30 16:42 | disposition home or self-care (01) ==
LOC: JER 06:58
PROC: 0R9P3ZZ Drainage of Left Wrist Joint, Percutaneous Approach (ICD-10-PCS; principal; 2017-04-30)
PROC: 3E03329 Introduction of Other Anti-infective into Peripheral Vein, Percutaneous Approach (ICD-10-PCS; 2017-04-30)
PROC: 3E05329 Introduction of Other Anti-infective into Peripheral Artery, Percutaneous Approach (ICD-10-PCS; 2017-04-30)
DX: M10.9 Gout, unspecified (principal); I10 Essential (primary) hypertension; E11.9 Type 2 diabetes mellitus without complications; Z21 Asymptomatic human immunodeficiency virus [HIV] infection status; Z86.72 Personal history of thrombophlebitis
CPT/HCPCS: 20605; 36415; 73110-TC-LT; 73130-TC-LT; 80053; 85025; 85610; 85651; 86140; 93971; 96365; 96367; 99282-25